=== PATIENT | female | born 1930 | race Caucasian/White ===

== ENCOUNTER 2016-10-14 21:39 | Inpatient (IN) | payer MEDICARE, BC ==
[2016-10-14 23:27] LABS: Glucose,Whole Blood 188 mg/dL (75-99)
[2016-10-15] MEDS: ACETAMINOPHEN TAB 325 MG TAB PO PRN ×2 (00:34→23:27)
[2016-10-15] MEDS: SODIUM CHLORIDE 0.9% 1,000 ML IV SCH ×2 (01:00→20:48)
[2016-10-15 05:54] LABS: Glucose,Whole Blood 151 mg/dL (75-99)
[2016-10-15] MEDS: INSULIN LISPRO (humaLOG) 300 UNIT/3 ML VIAL SQ SCH ×4 (06:26→20:54)
[2016-10-15 06:28] LABS: Basophils % (A) 0 %; CH 34.3; CHCM 32.8; Eosinophils % (A) 0 %; HCT 35.7 % (34.0-46.0); HGB 11.5 gm/dL (11.4-16.0); Luc # (Auto) 0.12; Luc % (Auto) 1; Lymphocytes # (A) 1.2 k/uL (1.0-4.8); Lymphocytes % (A) 11 %; MCH 33.7 pg (25.0-35.0); MCHC 32.1 g/dL (31.0-37.0); MCV 105.1 fL (80.0-100.0); Macrocytosis Slight; Mean Platelet Volume 7.2; Monocytes # (A) 0.4 k/uL (0-1.0); Monocytes % (A) 3 %; Neutrophils # (A) 9.8 k/uL (1.3-7.7); Neutrophils % (A) 85 %; RDW 11.7 % (11.5-15.5); WBC 11.5 k/uL (3.8-10.6)
[2016-10-15 06:37] LABS: Calcium 8.5 mg/dL (8.4-10.2); Potassium 4.4 mmol/L (3.5-5.1)
--- NOTE | 2016-10-15 09:23 | NM ---
EXAMINATION TYPE: NM pul vent and perfuse DATE OF EXAM: 10/15/2016 9:14 AM COMPARISON: No chest x-ray is submitted HISTORY: Elevated d-dimer TECHNIQUE: Utilizing inhalation of 70.8 mCi Tc 99m DTPA aerosol and intravenous injection of 5.3 mCi of Tc 99m MAA, ventilation and perfusion images are acquired post injection in multiple projections. FINDINGS: Decreased radiopharmaceutical uptake throughout the left hemithorax on both ventilation and perfusion images. Prominent lung volumes suggests possible underlying COPD. No ventilation/perfusion mismatche s are evident. IMPRESSION: Indeterminate probability for pulmonary embolism
--- NOTE | 2016-10-15 09:51 | XR ---
EXAMINATION TYPE: XR chest 2V DATE OF EXAM: 10/15/2016 9:33 AM COMPARISON: NONE HISTORY: Elevated d-dimer TECHNIQUE: Frontal and lateral views of the chest are obtained. FINDINGS: There is airspace disease present in the superior segment of the left lower lobe. Coronary calcifications are present. Prominent lung volumes compatible with underlying emphysema. Heart size may be borderline, patient is rotated which may accentuate the appearance. Surgical clips present in the left axilla. IMPRESSION: Correlate for pneumonia, follow-up is recommended. Coronary artery disease, emphysema.
[2016-10-15 12:06] LABS: Glucose,Whole Blood 127 mg/dL (75-99)
[2016-10-15 17:13] LABS: Glucose,Whole Blood 80 mg/dL (75-99)
[2016-10-15] MEDS ORDERED: HEPARIN SODIUM,PORCINE 10,000 UNIT/ML 1 ML VIAL IV ONE (19:04)
[2016-10-15] MEDS ORDERED: HEPARIN SODIUM,PORCINE 5,000 UNIT/ML 1 ML VIAL IV PRN (19:04)
--- NOTE | 2016-10-15 20:12 | US ---
EXAMINATION TYPE: US venous doppler duplex LE DATE OF EXAM: 10/15/2016 7:41 PM COMPARISON: NONE CLINICAL HISTORY: elevated d-dimer. pain in legs SIDE PERFORMED: Bilateral VESSELS IMAGED: External Iliac Vein (EIV) Common Femoral Vein Deep Femoral Vein Greater Saphenous Vein * Femoral Vein Popliteal Vein Proximal Calf Veins (* superficial vessels) TECHNOLOGIST IMPRESSION: wnl Right Leg: Negative for DVT Left Leg: Negative for DVT Satisfactory color flow, phasicity, and compressibility is seen in the bilateral lower extremities at the above levels. IMPRESSION: No ultrasound evidence for acute DVT in either lower extremity.
[2016-10-15] MEDS ORDERED: TEMAZEPAM 15 MG CAP PO PRN (20:22)
[2016-10-15] MEDS: AZITHROMYCIN 500 MG in SODIUM CHLORIDE 0.9% 250 ML IVPB SCH (20:48)
[2016-10-15] MEDS: LISINOPRIL 2.5 MG TAB PO SCH (20:51)
[2016-10-15] MEDS: MAGNESIUM OXIDE 400 MG TAB PO SCH (20:51)
[2016-10-15] MEDS: PRIMIDONE 50 MG TAB PO SCH (20:51)
[2016-10-15] MEDS: NICOTINE 14MG/24HR PATCH TRANSDERM SCH (20:51)
[2016-10-15] MEDS: ESCITALOPRAM 20 MG TAB PO SCH (20:51)
[2016-10-15] MEDS: ATORVASTATIN 20 MG TAB PO SCH (20:51)
[2016-10-15] MEDS: DONEPEZIL 10 MG TAB PO SCH (20:51)
[2016-10-15 20:55] LABS: Glucose,Whole Blood 125 mg/dL (75-99)
[2016-10-15 20:58] LABS: Basophils % (A) 0 %; CH 34.2; CHCM 32.3; Eosinophils # (A) 0.1 k/uL (0-0.7); Eosinophils % (A) 1 %; HCT 40.5 % (34.0-46.0); HDW 2.23; HGB 13.2 gm/dL (11.4-16.0); Luc # (Auto) 0.12; Luc % (Auto) 1; Lymphocytes # (A) 1.4 k/uL (1.0-4.8); Lymphocytes % (A) 12 %; MCH 34.6 pg (25.0-35.0); MCHC 32.5 g/dL (31.0-37.0); MCV 106.5 fL (80.0-100.0); Macrocytosis Slight; Monocytes # (A) 0.3 k/uL (0-1.0); Monocytes % (A) 3 %; Neutrophils # (A) 10.4 k/uL (1.3-7.7); Neutrophils % (A) 84 %; RBC 3.81 m/uL (3.80-5.40); RDW 11.8 % (11.5-15.5); WBC 12.4 k/uL (3.8-10.6); WBC (Perox) 12.75
[2016-10-15 22:19] LABS: Partial Thromboplastin Time 26.1 sec (22.0-30.0)
[2016-10-15 22:22] LABS: Prothrombin Time 10.5 sec (9.0-12.0)
[2016-10-15] MEDS: HEPARIN SODIUM,PORCINE/D5W PMX 25,000 UNIT in DEXTROSE/WATER 1 500ML.BAG IV SCH (22:44)
[2016-10-15 23:00] LABS: Appearance,Urine Clear (Clear); Bilirubin,Urine Negative (Negative); Glucose,Urine (UA) Negative (Negative); Ketones,Urine 1+ (Negative); Leukocyte Esterase,Urine Negative (Negative); Nitrite,Urine Negative (Negative); Protein,Urine Negative (Negative); Specific Gravity,Urine 1.009 (1.001-1.035); UA Billing (MACRO vs. MICRO) CHEM; Urobilinogen,Urine <2.0 mg/dL (<2.0)
[2016-10-15] MEDS: ALPRAZolam 0.25 MG TAB PO PRN (23:27)
[2016-10-16 05:53] LABS: Glucose,Whole Blood 155 mg/dL (75-99)
[2016-10-16 06:35] LABS: Basophils % (A) 0 %; CH 33.9; CHCM 31.6; Eosinophils % (A) 0 %; HCT 37.1 % (34.0-46.0); HDW 2.25; HGB 11.8 gm/dL (11.4-16.0); Luc # (Auto) 0.13; Luc % (Auto) 1; Lymphocytes % (A) 9 %; MCH 34.4 pg (25.0-35.0); MCHC 31.9 g/dL (31.0-37.0); MCV 107.6 fL (80.0-100.0); Macrocytosis Moderate; Mean Platelet Volume 7.1; Monocytes # (A) 0.3 k/uL (0-1.0); Monocytes % (A) 2 %; Neutrophils # (A) 9.6 k/uL (1.3-7.7); Neutrophils % (A) 87 %; RBC 3.45 m/uL (3.80-5.40); RDW 11.7 % (11.5-15.5); WBC (Perox) 11.46
[2016-10-16] MEDS: PANTOPRAZOLE 40 MG TABLET PO SCH (06:37)
[2016-10-16] MEDS: INSULIN LISPRO (humaLOG) 300 UNIT/3 ML VIAL SQ SCH ×3 (06:37→17:55)
[2016-10-16 07:30] LABS: Anion Gap 12 mmol/L; Blood Urea Nitrogen 15 mg/dL (7-17); Calcium 8.4 mg/dL (8.4-10.2); Carbon Dioxide 19 mmol/L (22-30); Chloride 110 mmol/L (98-107); Cholesterol 140 mg/dL (<200); Glucose 158 mg/dL (74-99); HDL Cholesterol 38 mg/dL (40-60); Magnesium 2.1 mg/dL (1.6-2.3); Non-African American GFR(MDRD) >60 (>60 ml/min/1.73 sqM); Potassium 4.1 mmol/L (3.5-5.1); Sodium 141 mmol/L (137-145); Triglycerides 125 mg/dL (<150)
[2016-10-16] MEDS: LEVALBUTEROL NEB (CONC) 1.25 MG/0.5 ML AMP INHALATION SCH ×3 (08:47→19:02)
[2016-10-16] MEDS: IPRATROPIUM 0.5 MG/2.5 ML NEBU INHALATION SCH ×3 (08:48→19:02)
[2016-10-16 08:51] LABS: Hemoglobin A1C 6.6 % (4.2-6.1)
[2016-10-16] MEDS ORDERED: RX INFO: IV CONTRAST WAS GIVEN 1 EACH MISC MISCELLANE PRN (10:15)
--- NOTE | 2016-10-16 11:30 | CT ---
EXAMINATION TYPE: CT chest angio for PE DATE OF EXAM: 10/16/2016 11:10 AM COMPARISON: NONE HISTORY: SOB, PE CT DLP: 177 mGycm Automated exposure control for dose reduction was used. CONTRAST: CT Chest for pulmonary embolism performed with with IV Contrast, patient injected with 100 mL of Omni paque 350. FINDINGS: LUNGS: Large area of consolidation in the left upper lobe most likely in the basis of a pneumonia. Fo llow resolution to exclude underlying neoplasm. Hyperinflation is suggestive of COPD and there are pa raseptal emphysematous changes. Central bronchiectasis suggested. No pleural effusion or pneumothorax . Basilar consolidation likely in the basis of compressive atelectasis. MEDIASTINUM: There is satisfactory enhancement of the pulmonary artery and its branches, there is no CT evidence for pulmonary embolism. There are no greater than 1 cm hilar or mediastinal lymph nodes. No pericardial effusion is seen. Atherosclerotic change of the aorta with no evidence of aneurysm . OTHER: Thyroid gland appears markedly enlarged. Correlate for thyroid goiter. Kyphosis of the spine with hypertrophic and degenerative changes noted. IMPRESSION: 1. Correlate for left upper lobe pneumonia. Follow resolution to exclude other etiologies including n eoplasm. 2. No CT evidence of pulmonary embolism. 3. 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 4. Thyroidomegaly.
[2016-10-16 11:59] LABS: Glucose,Whole Blood 63 mg/dL (75-99)
[2016-10-16 12:22] LABS: Glucose,Whole Blood 80 mg/dL (75-99)
[2016-10-16] MEDS: MULTIVITAMINS, THERA 1 EACH TAB PO SCH (12:29)
[2016-10-16] MEDS: ESCITALOPRAM 20 MG TAB PO SCH (12:29)
[2016-10-16] MEDS: NICOTINE 14MG/24HR PATCH TRANSDERM SCH (12:29)
[2016-10-16] MEDS: amLODIPine 5 MG TAB PO SCH (12:29)
[2016-10-16] MEDS: LISINOPRIL 2.5 MG TAB PO SCH (12:29)
[2016-10-16] MEDS: ASPIRIN 81 MG CHEW PO SCH (12:29)
[2016-10-16] MEDS: MAGNESIUM OXIDE 400 MG TAB PO SCH ×2 (12:29→23:12)
[2016-10-16] MEDS: ATENOLOL 25 MG TAB PO SCH (12:29)
[2016-10-16 12:54] LABS: Glucose,Whole Blood 120 mg/dL (75-99)
[2016-10-16 14:55] VITALS: BMI 20.7
--- NOTE | 2016-10-16 15:04 | P.CNPUL ---
History of Present Illness Consult date: 10/16/16 Requesting physician: Bita Alexander Reason for consult: pulmonary embolism Chief complaint: Shortness of breath and cough History of present illness: This is an 86-year-old female who is a poor historian, patient was admitted with mostly symptoms of cough and shortness of breath. However according to the patient she has no idea why she was sent to the hospital, since admission the patient had a VQ scan which showed intermediate probability for pulmonary embolism. She had a chest x-ray which showed possible pneumonia involving the left midlung area she had a venous Doppler which came back negative for DVT, however considering her intermediate VQ scan, patient was placed on heparin, and I was asked to see her on consultation. I reviewed the patient's chest x- ray, and upon my physical examination, I felt were mostly dealing with pneumonia , strongly doubt pulmonary embolism, and considering her renal functioning was relatively normal, I went ahead and recommended a CT angiogram which came back negative for pulmonary embolism and it is correlating with the chest x-ray findings of possible pneumonia involving the left midlung area. Hence I will go ahead and discontinue heparin, and I will place more emphasis on antibiotics and bronchodilators on this patient. Of course the possibility of malignancy in the left lung is not entirely ruled out, but felt to be less likely at this point. However in the abnormality does not clear with time, bronchoscopy would have to be considered to rule out underlying malignancy. Again the patient is a very poor historian. Review of Systems ROS unobtainable: due to mental status Past Medical History Past Medical History: Cancer, Diabetes Mellitus, Hyperlipidemia, Hypertension, Myocardial Infarction (ND), Pneumonia, Renal Disease, Thyroid Disorder Additional Past Medical History / Comment(s): breast CA, benign tumors, femur fx (2011) Last Myocardial Infarction Date:: 2011 History of Any Multi-Drug Resistant Organisms: None Reported Past Surgical History: Breast Surgery, Heart Catheterization With Stent Additional Past Surgical History / Comment(s): stents 2011 Past Anesthesia/Blood Transfusion Reactions: No Reported Reaction Date of Last Stent Placement:: 2011 Smoking Status: Current some day smoker Past Alcohol Use History: None Reported Additional Past Alcohol Use History / Comment(s): smokes 2-3 ciagrettes a day, quit for 4 years but restarted a few weeks ago. Past Drug Use History: None Reported - Past Family History Mother Family Medical History: Diabetes Mellitus Additional Family Medical History / Comment(s): varicose veins, at 57 Sister(s) Family Medical History: Diabetes Mellitus Brother(s) Family Medical History: Myocardial Infarction (ND) Father Additional Family Medical History / Comment(s): back problems Medications and Allergies Home Medications Medication Instructions Recorded Confirmed Type ALPRAZolam [Xanax] 0.25 mg PO BID PRN 10/15/16 10/15/16 History Acetaminophen Tab [Tylenol Tab] 650 mg PO Q6H 10/15/16 10/15/16 History Albuterol Sulfate [Proair 90 mcg INHALATION QID 10/15/16 10/15/16 History Respiclick] Aspirin [Adult Low Dose Aspirin EC] 81 mg PO DAILY 10/15/16 10/15/16 History Atenolol [Tenormin] 25 mg PO DAILY 10/15/16 10/15/16 History Donepezil [Aricept] 10 mg PO HS 10/15/16 10/15/16 History Escitalopram [Lexapro] 20 mg PO DAILY 10/15/16 10/15/16 History Lisinopril [Zestril] 2.5 mg PO DAILY 10/15/16 10/15/16 History Magnesium Oxide [Mag-Ox] 250 mg PO BID 10/15/16 10/15/16 History Primidone [Mysoline] 50 mg PO HS 10/15/16 10/15/16 History Simvastatin [Zocor] 40 mg PO HS 10/15/16 10/15/16 History amLODIPine [Norvasc] 5 mg PO DAILY 10/15/16 10/15/16 History glipiZIDE [Glucotrol] 2.5 mg PO AC-BRKFST 10/15/16 10/15/16 History Allergies Allergy/AdvReac Type Severity Reaction Status Date / Time codeine Allergy Itching Verified 10/15/16 10:53 Physical Exam Vitals: Vital Signs Temp Pulse Pulse Resp BP Pulse Ox 10/16/16 13:20 84 10/16/16 13:07 80 10/16/16 11:41 97.3 F L 95 20 121/63 90 L 10/16/16 09:03 84 10/16/16 08:48 84 10/16/16 08:00 97.8 F 97 20 127/66 93 L 10/16/16 04:00 98.5 F 92 18 141/74 96 10/16/16 00:00 97.6 F 100 18 136/72 95 10/15/16 20:04 97.4 F L 109 H 18 147/76 96 10/15/16 16:00 97.8 F 97 20 127/58 98 Intake and Output 10/15/16 10/16/16 10/16/16 22:59 06:59 14:59 Intake Total 240 600 860.4 Output Total 450 Balance 240 150 860.4 Intake: Intake, IV Titration 860.4 Amount Heparin Sodium,Porcine/ 260.4 D5w Pmx 25,000 unit In Dextrose/Water 1 500ml. bag @ 18 UNITS/KG/HR 21.7 mls/hr IV .Q23H3M [facility] Rx #:[id number] Sodium Chloride 0.9% 1, 600 000 ml @ 50 mls/hr IV . Q20H [facility] Rx#:[id number] Oral 240 600 Output: Urine 450 Other: # Voids 1 2 Weight 60.1 kg 60.1 kg Patient Weight 10/17/16 06:59 Weight 60.1 kg Physical Exam: Revealed an 86-year-old female in no distress HEENT:[Neck is supple.] [No neck masses.] [No thyromegaly.] [No JVD.] Chest: [Rhonchi and wheezes noted bilaterally.] Cardiac Exam: [Normal S1 and S2, no S3 gallop, no murmur.] Abdomen: [Soft, nontender, no megaly, no rebound, no guarding, normal bowel sounds.] Extremities: [No clubbing, no edema, no cyanosis.] Neurological Exam: [No focal neurologic deficit.] Results - Laboratory Findings CBC and BMP: 10/16/16 06:03 10/16/16 06:03 PT/INR, D-dimer PT 10.5 sec (9.0-12.0) 10/15/16 22:00 INR 1.0 (<1.1) 10/15/16 22:00 Abnormal lab findings: Abnormal Labs 10/14/16 10/15/16 10/15/16 23:25 05:49 05:49 WBC 11.5 H RBC 3.40 L MCV 105.1 H Neutrophils # 9.8 H APTT Chloride Carbon Dioxide BUN Creatinine Glucose POC Glucose (mg/dL) 188 H Hemoglobin A1c 6.6 H HDL Cholesterol Urine Ketones 10/15/16 10/15/16 10/15/16 05:49 05:53 12:01 WBC RBC MCV Neutrophils # APTT Chloride 108 H Carbon Dioxide BUN 25 H Creatinine 1.11 H Glucose 146 H POC Glucose (mg/dL) 151 H 127 H Hemoglobin A1c HDL Cholesterol Urine Ketones 10/15/16 10/15/16 10/15/16 20:20 20:53 22:00 WBC 12.4 H RBC MCV 106.5 H Neutrophils # 10.4 H APTT Chloride Carbon Dioxide BUN Creatinine Glucose POC Glucose (mg/dL) 125 H Hemoglobin A1c HDL Cholesterol Urine Ketones 1+ H 10/16/16 10/16/16 10/16/16 05:51 06:03 06:03 WBC 11.0 H RBC 3.45 L MCV 107.6 H Neutrophils # 9.6 H APTT Chloride 110 H Carbon Dioxide 19 L BUN Creatinine Glucose 158 H POC Glucose (mg/dL) 155 H Hemoglobin A1c HDL Cholesterol 38 L Urine Ketones 10/16/16 10/16/16 10/16/16 06:03 11:53 12:47 WBC RBC MCV Neutrophils # APTT 70.4 H Chloride Carbon Dioxide BUN Creatinine Glucose POC Glucose (mg/dL) 63 L 120 H Hemoglobin A1c HDL Cholesterol Urine Ketones - Diagnostic Findings CT scan - chest: image reviewed (The computed tomography scan is negative for pulmonary embolism, but points to possible infection in the left lung.) Assessment and Plan Plan: Impression: 1 acute left midlung pneumonia, community-acquired, doubt malignancy but it is not entirely ruled out. 2 history of multiple comorbidities including essential hypertension, dementia, diabetes, and depression. Recommendation: Continue antibiotics in the form of Rocephin and Zithromax, discontinue IV heparin, continue bronchodilators, and we will continue to follow. Time with Patient: Greater than 30
[2016-10-16 16:48] LABS: Glucose,Whole Blood 90 mg/dL (75-99)
--- NOTE | 2016-10-16 17:51 | HP ---
DATE OF ADMISSION: 10/14/2016 CHIEF COMPLAINT: Shortness of breath and cough. HISTORY OF PRESENT ILLNESS: This 86 -year-old woman with a past medical history of multiple medical problems, including diabetes, hypertension, hyperlipidemia, history of myocardial infarction, history of hypothyroidism, history of breast cancer, history of benign tumor, history of coronary artery disease and stent being followed by primary physician in [facility], was noted to have shortness of breath and cough for the past several days. Patient went to [facility]. Pneumonia is suspected, but D. dimer was elevated and the patient sent to [facility] and admitted to the hospital for further evaluation and treatment. VQ scan showed intermediate probability. There is no history of any fever, rigors or chills at this time. White count is 11.5, creatinine 1.11. Ultrasound of the leg which ordered showed no evidence of DVT. The patient started on IV heparin empirically at this time. There is no history of fever, rigors or chills. No history of headache, loss of consciousness or seizures. PAST MEDICAL HISTORY: History of diabetes mellitus type 2, hypertension hyperlipidemia, history of myocardial infarction, pneumonia, hypothyroidism, history of breast cancer, benign tumor, history of CAD/stent. Medications prior to admission include: 1. Glucotrol 2.5 mg a.c. breakfast. 2. Norvasc 5 mg p.o. daily. 3. Zocor 40 mg q.h.s. 4. Mysoline 50 mg q.h.s. 6. Zestril 2.5 mg daily. 7. Lexapro 20 mg p.o. daily. 8. Aricept 10 mg q.h.s. 9. Tenormin 20 mg p.o. daily. 10. Ecotrin 81 mg daily. 11. Pro-Air 90 mcg q.i.d. 12. Tylenol 650 q.6h p.r.n. 13. Xanax 0.5 p.r.n. ALLERGIES: CODEINE. FAMILY HISTORY: History of diabetes mellitus and varicose veins in the family. SOCIAL HISTORY: No history of alcohol intake. Current smoking present. REVIEW OF SYSTEMS: ENT: Diminished vision. Diminished hearing. CARDIOVASCULAR: As mentioned earlier. RESPIRATORY: As mentioned earlier. GI: No nausea or vomiting. : No dysuria. Nervous system: No numbness or weakness. ALLERGY/IMMUNOLOGY: No asthma or hayfever. MUSCULOSKELETAL: As mentioned earlier. HEMATOLOGY/ONCOLOGY: No history of anemia. ENDOCRINE: No history of diabetes, hypothyroidism. CONSTITUTIONAL: As mentioned earlier. DERMATOLOGY: As mentioned earlier. RHEUMATOLOGY: Negative. PSYCHIATRY: As mentioned earlier. PHYSICAL EXAMINATION: The patient is alert and oriented times three. Pulse 109. Blood pressure 147/77. Respiratory rate 18, temperature 97.4, pulse ox 97% on 2 L. HEENT: Conjunctivae normal. Oral mucosa moist. NECK: No jugular venous distention. No carotid bruit. No lymph node enlargement. CARDIOVASCULAR: S1, S2 muffled. No S3, no S4. RESPIRATORY: Breath sounds diminished at the bases. Bilateral scattered rhonchi and crackles. Expiratory wheezing also present. ABDOMEN: Soft, nontender. No mass palpable. Legs: No edema, no swelling. Nervous system: Higher functions as mentioned. Moves all four limbs. No focal deficits. LYMPHATICS: No lymph nodes palpable in the neck, axillae or groin. SKIN: No ulcer, rash or bleeding. LABS: At this time shows: WBC 11.5, MCV 105, otherwise creatinine 1.10, Accu-Cheks noted. ASSESSMENT: 1. Chronic obstructive pulmonary disease, acute exacerbation, with left lower lobe pneumonia, possibly community acquired. 2. Rule out pulmonary embolism. 3. Diabetes mellitus type 2. 4. Hypertension, essential. 5. Hyperlipidemia. 6. History of myocardial infarction. 7. History of pneumonia. 8. History of chronic kidney disease stage III. 9. Hypothyroidism. 10. History of breast cancer. 11. History of femoral fractures. 12. History of breast surgery. 13. History of coronary artery disease and stent. 14. Continued ongoing nicotine dependence. 15. FULL CODE with instructions and DO NOT INTUBATE. RECOMMENDATIONS AND DISCUSSION: In this 86-year-old woman who presented with multiple complex medical issues, we will monitor the patient closely. Continue the current medications and continue symptomatic treatment. We will initiate broad-spectrum IV antibiotics and bronchodilators. I would also recommend pulmonary consultation. Other than that, I would obtain cultures. Resume the home medications. IV heparin. Monitor heparin. PTT monitoring. Guarded prognosis because of multiple complex medical issues. Further recommendations to follow. I would recommend the patient follow up closely with the primary physician after discharge. DEVIN
--- NOTE | 2016-10-16 18:02 | P.PN ---
Subjective Date of service 10/16/2016 Progress note being dictated for Dr. Lee Interval history: This is an 86-year-old gentleman admitted with shortness of breath, acute left midlung pneumonia, VQ scan reporting intermediate probability of PE, CTA reported negative for PE and multiple other medical issues. Heparin drip now discontinued as per pulmonary. Maintained on nebulized bronchodilators, antibiotics of Rocephin and Zithromax. Maintaining O2 sats of 96% on 2 L nasal cannula. Afebrile. Review of systems: HEENT: Denies headache or focal deficits. Denies any dizziness or lightheadedness. Respiratory: Complains of increased shortness of breath, much improved with addition of nasal cannula O2. Cardiac: Denies any chest pain, palpitations. GI: Denies any nausea, vomiting, or diarrhea. Denies any abdominal tenderness. : Denies any dysuria. Psychiatry: Denies any anxiety or depression. Active Medications Acetaminophen (Tylenol Tab) 650 mg PO Q6HR PRN PRN Reason: Fever and/ or Pain Last Admin: 10/15/16 23:27 Dose: 650 mg Albuterol/Ipratropium (Duoneb 0.5 Mg-3 Mg/3 Ml Soln) 3 ml INHALATION RT-QID [facility] Alprazolam (Xanax) 0.25 mg PO BID PRN PRN Reason: Anxiety Last Admin: 10/15/16 23:27 Dose: 0.25 mg Amlodipine Besylate (Norvasc) 5 mg PO DAILY [facility] Last Admin: 10/16/16 12:29 Dose: 5 mg Aspirin (Aspirin) 81 mg PO DAILY [facility] Last Admin: 10/16/16 12:29 Dose: 81 mg Atenolol (Tenormin) 25 mg PO DAILY [facility] Last Admin: 10/16/16 12:29 Dose: 25 mg Atorvastatin Calcium (Lipitor) 20 mg PO HS [facility] Last Admin: 10/15/16 20:51 Dose: 20 mg Donepezil HCl (Aricept) 10 mg PO HS [facility] Last Admin: 10/15/16 20:51 Dose: 10 mg Escitalopram Oxalate (Lexapro) 20 mg PO DAILY [facility] Last Admin: 10/16/16 12:29 Dose: 20 mg Glipizide (Glucotrol) 2.5 mg PO [facility] Last Admin: 10/16/16 06:37 Dose: 2.5 mg Sodium Chloride (Saline 0.9%) 1,000 mls @ 50 mls/hr IV .Q20H [facility] Last Admin: 10/15/16 20:48 Dose: 50 mls/hr Heparin Sodium/Dextrose 25,000 (unit/ IV Solution) 500 mls @ 21.7 mls/hr IV .Q23H3M [facility]; 18 UNITS/KG/HR PRN Reason: Protocol Last Admin: 10/15/16 22:44 Dose: 18 units/kg/hr, 21.7 mls/hr Azithromycin 500 mg/ Sodium (Chloride) 250 mls @ 125 mls/hr IVPB Q24H [facility] Last Admin: 10/15/16 20:48 Dose: 125 mls/hr Ceftriaxone Sodium 1,000 mg/ (Sodium Chloride) 50 mls @ 100 mls/hr IVPB Q24H [facility] Last Admin: 10/15/16 23:29 Dose: 100 mls/hr Insulin Human Lispro (Humalog) 0 unit SQ ACHS [facility] PRN Reason: Protocol Last Admin: 10/16/16 17:55 Dose: Not Given Ipratropium Hamlin (Atrovent Nebulized) 0.5 mg INHALATION RT-TID [facility] Stop: 10/17/16 07:00 Last Admin: 10/16/16 13:07 Dose: 0.5 mg Levalbuterol HCl (Xopenex Nebulized (Conc)) 1.25 mg INHALATION RT-TID [facility] Stop: 10/17/16 07:00 Last Admin: 10/16/16 13:07 Dose: 1.25 mg Lisinopril (Zestril) 2.5 mg PO DAILY [facility] Last Admin: 10/16/16 12:29 Dose: 2.5 mg Magnesium Oxide (Mag-Ox) 400 mg PO BID [facility] Last Admin: 10/16/16 12:29 Dose: 400 mg Miscellaneous Information (Rx Info: Iv Contrast Was Given) 1 each MISCELLANE DAILY PRN PRN Reason: Per Protocol Stop: 10/18/16 10:16 Multivitamins (Theragran) 1 each PO DAILY@1200 [facility] Last Admin: 10/16/16 12:29 Dose: 1 each Nicotine (Habitrol 14mg/24hr Patch) 1 patch TRANSDERM DAILY [facility] Last Admin: 10/16/16 12:29 Dose: Not Given Pantoprazole Sodium (Protonix) 40 mg PO AC-BRKFST [facility] Last Admin: 10/16/16 06:37 Dose: 40 mg Primidone (Mysoline) 50 mg PO HS [facility] Last Admin: 10/15/16 20:51 Dose: 50 mg Temazepam (Restoril) 15 mg PO HS PRN PRN Reason: Insomnia Objective - Vital Signs Vital signs: Vital Signs Temp 97.3 F L 10/16/16 15:52 Pulse 74 10/16/16 15:52 Resp 20 10/16/16 15:52 BP 105/51 10/16/16 15:52 Pulse Ox 96 10/16/16 15:52 Intake & Output 10/15/16 10/16/16 10/16/16 18:59 06:59 18:59 Intake Total 360 600 860.4 Output Total 400 450 Balance -40 150 860.4 Weight 60.1 kg 60.1 kg Intake: Intake, IV Titration 860.4 Amount Heparin Sodium,Porcine/ 260.4 D5w Pmx 25,000 unit In Dextrose/Water 1 500ml. bag @ 18 UNITS/KG/HR 21.7 mls/hr IV .Q23H3M [facility] Rx #:[id number] Sodium Chloride 0.9% 1, 600 000 ml @ 50 mls/hr IV . Q20H [facility] Rx#:[id number] Oral 360 600 Output: Urine 400 450 Other: # Voids 1 2 - Exam PHYSICAL EXAM: VITAL SIGNS: As above GENERAL: [Sitting up in bed, no acute distress] HEENT: [Pupils equal conjunctiva normal.] NECK: [Supple, no JVD] RESPIRATORY EFFORT:[Increased] LUNGS: [Scattered rhonchi throughout with expiratory wheezing] CARDIOVASCULAR[regular S1 and S2, no murmurs ,rubs or gallops, no edema] GI: [Abdomen soft, nontender, positive bowel sounds.] PSYCH: [Alert and oriented -3, mood and affect normal.] NEURO: [] Neurological examination did not reveal any focal deficits.] Microbiology 10/15/16 22:00 Urine,Voided Urine Culture - Preliminary - Labs CBC & Chem 7: 10/16/16 06:03 10/16/16 06:03 Labs: Abnormal Lab Results - Last 24 Hours (Table) 10/15/16 10/15/16 10/15/16 Range/Units 05:49 20:20 20:53 WBC 12.4 H (3.8-10.6) k/uL RBC (3.80-5.40) m/uL MCV 106.5 H (80.0-100.0) fL Neutrophils # 10.4 H (1.3-7.7) k/uL APTT (22.0-30.0) sec Chloride (98-107) mmol/L Carbon Dioxide (22-30) mmol/L Glucose (74-99) mg/dL POC Glucose (mg/dL) 125 H (75-99) mg/dL Hemoglobin A1c 6.6 H (4.2-6.1) % HDL Cholesterol (40-60) mg/dL Urine Ketones (Negative) 10/15/16 10/16/16 10/16/16 Range/Units 22:00 05:51 06:03 WBC 11.0 H (3.8-10.6) k/uL RBC 3.45 L (3.80-5.40) m/uL MCV 107.6 H (80.0-100.0) fL Neutrophils # 9.6 H (1.3-7.7) k/uL APTT (22.0-30.0) sec Chloride (98-107) mmol/L Carbon Dioxide (22-30) mmol/L Glucose (74-99) mg/dL POC Glucose (mg/dL) 155 H (75-99) mg/dL Hemoglobin A1c (4.2-6.1) % HDL Cholesterol (40-60) mg/dL Urine Ketones 1+ H (Negative) 10/16/16 10/16/16 10/16/16 Range/Units 06:03 06:03 11:53 WBC (3.8-10.6) k/uL RBC (3.80-5.40) m/uL MCV (80.0-100.0) fL Neutrophils # (1.3-7.7) k/uL APTT 70.4 H (22.0-30.0) sec Chloride 110 H (98-107) mmol/L Carbon Dioxide 19 L (22-30) mmol/L Glucose 158 H (74-99) mg/dL POC Glucose (mg/dL) 63 L (75-99) mg/dL Hemoglobin A1c (4.2-6.1) % HDL Cholesterol 38 L (40-60) mg/dL Urine Ketones (Negative) 10/16/16 Range/Units 12:47 WBC (3.8-10.6) k/uL RBC (3.80-5.40) m/uL MCV (80.0-100.0) fL Neutrophils # (1.3-7.7) k/uL APTT (22.0-30.0) sec Chloride (98-107) mmol/L Carbon Dioxide (22-30) mmol/L Glucose (74-99) mg/dL POC Glucose (mg/dL) 120 H (75-99) mg/dL Hemoglobin A1c (4.2-6.1) % HDL Cholesterol (40-60) mg/dL Urine Ketones (Negative) Microbiology - Last 24 Hours (Table) 10/15/16 22:00 Urine Culture - Preliminary Urine,Voided Assessment and Plan Plan: 1. Shortness of breath, pulmonary embolism ruled out out. Acute left mid lung pneumonia, community-acquired, possibly malignancy. 2. [Diabetes mellitus]. 3. [Hypertension]. 4. [Dementia]. 5. [Depression]. 6. [Acute hypoxic respiratory failure secondary to #1]. 7. [Hyperlipidemia] 9. CAD with history of CT 10. Current ongoing nicotine abuse 11. Leukocytosis secondary #1 Plan: Continue on current medication regime, nebulized bronchodilators, Rocephin , Zithromax, monitoring, and symptomatic treatment. Urine culture pending. Follow closely with pulmonary. Further recommendations to follow. Prognosis guarded given multiple complex medical issues. The impression and plan of care has been dictated as directed. : I performed a H&P examination of this patient and discussed the same with the dictator. I agree with the dictator's note. Any additional findings/opinions/ etc. will be noted.
[2016-10-16 21:32] LABS: Glucose,Whole Blood 125 mg/dL (75-99)
[2016-10-16] MEDS: ATORVASTATIN 20 MG TAB PO SCH (23:11)
[2016-10-16] MEDS: AZITHROMYCIN 500 MG in SODIUM CHLORIDE 0.9% 250 ML IVPB SCH (23:11)
[2016-10-16] MEDS: DONEPEZIL 10 MG TAB PO SCH (23:12)
[2016-10-16] MEDS: PRIMIDONE 50 MG TAB PO SCH (23:12)
[2016-10-17] MEDS: HEPARIN SODIUM,PORCINE/D5W PMX 25,000 UNIT in DEXTROSE/WATER 1 500ML.BAG IV SCH (05:59)
[2016-10-17] MEDS: INSULIN LISPRO (humaLOG) 300 UNIT/3 ML VIAL SQ SCH ×5 (06:00→21:20)
[2016-10-17 06:16] LABS: Basophils % (A) 0 %; CH 33.6; CHCM 31.2; Eosinophils # (A) 0.1 k/uL (0-0.7); Eosinophils % (A) 2 %; HCT 35.7 % (34.0-46.0); HDW 2.27; HGB 11.3 gm/dL (11.4-16.0); Luc % (Auto) 1; Lymphocytes # (A) 0.9 k/uL (1.0-4.8); Lymphocytes % (A) 11 %; MCH 34.1 pg (25.0-35.0); MCHC 31.5 g/dL (31.0-37.0); Macrocytosis Moderate; Mean Platelet Volume 7.4; Monocytes # (A) 0.3 k/uL (0-1.0); Monocytes % (A) 3 %; Neutrophils # (A) 7.1 k/uL (1.3-7.7); Neutrophils % (A) 83 %; RBC 3.31 m/uL (3.80-5.40); RDW 11.6 % (11.5-15.5); WBC 8.5 k/uL (3.8-10.6); WBC (Perox) 8.97
[2016-10-17 06:20] LABS: Glucose,Whole Blood 147 mg/dL (75-99)
[2016-10-17] MEDS: SODIUM CHLORIDE 0.9% 1,000 ML IV SCH ×2 (06:21→12:08)
[2016-10-17 06:35] LABS: Anion Gap 10 mmol/L; Blood Urea Nitrogen 13 mg/dL (7-17); Calcium 8.3 mg/dL (8.4-10.2); Carbon Dioxide 19 mmol/L (22-30); Chloride 109 mmol/L (98-107); Glucose 142 mg/dL (74-99); Non-African American GFR(MDRD) >60 (>60 ml/min/1.73 sqM); Sodium 138 mmol/L (137-145)
[2016-10-17] MEDS: PANTOPRAZOLE 40 MG TABLET PO SCH (07:11)
[2016-10-17] MEDS: ASPIRIN 81 MG CHEW PO SCH (08:24)
[2016-10-17] MEDS: ATENOLOL 25 MG TAB PO SCH (08:24)
[2016-10-17] MEDS: amLODIPine 5 MG TAB PO SCH (08:24)
[2016-10-17] MEDS: MAGNESIUM OXIDE 400 MG TAB PO SCH ×2 (08:24→21:11)
[2016-10-17] MEDS: LISINOPRIL 2.5 MG TAB PO SCH (08:25)
[2016-10-17] MEDS: ESCITALOPRAM 20 MG TAB PO SCH (08:25)
[2016-10-17] MEDS: ALPRAZolam 0.25 MG TAB PO PRN (08:32)
[2016-10-17] MEDS: IPRATROPIUM-ALBUTEROL 3 ML NEB INHALATION SCH ×4 (08:59→20:35)
[2016-10-17] MEDS: NICOTINE 14MG/24HR PATCH TRANSDERM SCH (10:01)
--- NOTE | 2016-10-17 10:16 | PN ---
DATE OF SERVICE: 10/16/2016 This 86-year-old woman who was admitted with shortness of breath and acute left middle lung pneumonia, is being closely monitored at this time. The VQ scan indeterminate. Dr. Castro is following the patient closely. Dr. Castro is recommending treatment for community-acquired pneumonia. Please refer to the nurse practitioner's notes and impressions for further information which is documented as scribe at this time.
[2016-10-17 11:38] LABS: Glucose,Whole Blood 79 mg/dL (75-99)
[2016-10-17] MEDS: MULTIVITAMINS, THERA 1 EACH TAB PO SCH (12:06)
--- NOTE | 2016-10-17 13:03 | P.PN ---
Subjective Principal diagnosis: Acute community-acquired pneumonia This is an 86-year-old female who is a poor historian, patient was admitted with mostly symptoms of cough and shortness of breath. However according to the patient she has no idea why she was sent to the hospital, since admission the patient had a VQ scan which showed intermediate probability for pulmonary embolism. She had a chest x-ray which showed possible pneumonia involving the left midlung area she had a venous Doppler which came back negative for DVT, however considering her intermediate VQ scan, patient was placed on heparin, and I was asked to see her on consultation. I reviewed the patient's chest x- ray, and upon my physical examination, I felt were mostly dealing with pneumonia , strongly doubt pulmonary embolism, and considering her renal functioning was relatively normal, I went ahead and recommended a CT angiogram which came back negative for pulmonary embolism and it is correlating with the chest x-ray findings of possible pneumonia involving the left midlung area. Hence I will go ahead and discontinue heparin, and I will place more emphasis on antibiotics and bronchodilators on this patient. Of course the possibility of malignancy in the left lung is not entirely ruled out, but felt to be less likely at this point. However in the abnormality does not clear with time, bronchoscopy would have to be considered to rule out underlying malignancy. Again the patient is a very poor historian. Patient was seen today on 10/17/2016, feeling a bit better, less cough and less wheezing less shortness of breath. CBC is relatively unremarkable, electrolytes are normal and renal profile is normal. Objective - Vital Signs Vital signs: Vital Signs Temp 98.3 F 10/17/16 11:17 Pulse 66 10/17/16 11:47 Resp 16 10/17/16 11:47 BP 109/53 10/17/16 11:17 Pulse Ox 96 10/17/16 11:17 Intake & Output 10/16/16 10/17/16 10/17/16 18:59 06:59 18:59 Intake Total 860.4 800 Balance 860.4 800 Weight 60.1 kg 60.8 kg 60.8 kg Intake: Intake, IV Titration 860.4 500 Amount Heparin Sodium,Porcine/ 260.4 500 D5w Pmx 25,000 unit In Dextrose/Water 1 500ml. bag @ 18 UNITS/KG/HR 21.7 mls/hr IV .Q23H3M [facility] Rx #:[id number] Sodium Chloride 0.9% 1, 600 000 ml @ 50 mls/hr IV . Q20H [facility] Rx#:[id number] Oral 300 Other: Voiding Method Toilet Toilet # Voids 2 - Exam Physical Exam: Revealed an 86-year-old female in no distress HEENT:[Neck is supple.] [No neck masses.] [No thyromegaly.] [No JVD.] Chest: [Rhonchi and wheezes noted bilaterally.] Cardiac Exam: [Normal S1 and S2, no S3 gallop, no murmur.] Abdomen: [Soft, nontender, no megaly, no rebound, no guarding, normal bowel sounds.] Extremities: [No clubbing, no edema, no cyanosis.] Neurological Exam: [No focal neurologic deficit.] - Labs CBC & Chem 7: 10/17/16 05:52 10/17/16 05:52 Labs: Abnormal Lab Results - Last 24 Hours (Table) 10/16/16 10/17/16 10/17/16 Range/Units 21:30 05:52 05:52 RBC 3.31 L (3.80-5.40) m/uL Hgb 11.3 L (11.4-16.0) gm/dL MCV 108.0 H (80.0-100.0) fL Lymphocytes # 0.9 L (1.0-4.8) k/uL APTT (22.0-30.0) sec Chloride 109 H (98-107) mmol/L Carbon Dioxide 19 L (22-30) mmol/L Glucose 142 H (74-99) mg/dL POC Glucose (mg/dL) 125 H (75-99) mg/dL Calcium 8.3 L (8.4-10.2) mg/dL 10/17/16 10/17/16 Range/Units 05:52 06:17 RBC (3.80-5.40) m/uL Hgb (11.4-16.0) gm/dL MCV (80.0-100.0) fL Lymphocytes # (1.0-4.8) k/uL APTT 69.0 H (22.0-30.0) sec Chloride (98-107) mmol/L Carbon Dioxide (22-30) mmol/L Glucose (74-99) mg/dL POC Glucose (mg/dL) 147 H (75-99) mg/dL Calcium (8.4-10.2) mg/dL Microbiology - Last 24 Hours (Table) 10/15/16 20:48 Blood Culture - Preliminary Blood No Growth after 24 hours 10/15/16 22:00 Urine Culture - Preliminary Urine,Voided Assessment and Plan Plan: Impression: 1 acute left midlung pneumonia, community-acquired, doubt malignancy but it is not entirely ruled out. 2 history of multiple comorbidities including essential hypertension, dementia, diabetes, and depression. Recommendation: Continue antibiotics in the form of Rocephin and Zithromax, discontinue IV heparin, continue bronchodilators, and we will continue to follow. Time with Patient: Less than 30
[2016-10-17 16:34] LABS: Glucose,Whole Blood 92 mg/dL (75-99)
--- NOTE | 2016-10-17 17:23 | P.PN ---
Subjective Date of service 10/17/2016 Progress note being dictated for Dr. Lee Interval history: This is an 86-year-old gentleman admitted with shortness of breath, acute left midlung pneumonia and multiple other medical issues. Ambulating to and from bathroom, tolerating increase in exertion well. Maintaining O2 sats Maintained on nebulized bronchodilators, antibiotics of Rocephin and Zithromax. Maintaining O2 sats of 95% on 2 L nasal cannula. Afebrile. Review of systems: HEENT: Denies headache or focal deficits. Denies any dizziness or lightheadedness. Respiratory: Complains of mild increase in shortness of breath upon ambulation. Cardiac: Denies any chest pain, palpitations. GI: Denies any nausea, vomiting, or diarrhea. Denies any abdominal tenderness. : Denies any dysuria. Psychiatry: Denies any anxiety or depression. Active Medications Generic Name Dose Route Start Last Admin Trade Name Freq PRN Reason Stop Dose Admin Acetaminophen 650 mg 10/15/16 00:27 10/15/16 23:27 Tylenol Tab PO 650 mg Q6HR PRN Administration Fever and/ or Pain Albuterol/Ipratropium 3 ml 10/17/16 08:00 10/17/16 16:27 Duoneb 0.5 Mg-3 Mg/3 Ml Soln INHALATION 3 ml RT-QID LISA Administration Alprazolam 0.25 mg 10/15/16 20:23 10/17/16 08:32 Xanax PO 0.25 mg BID PRN Administration Anxiety Amlodipine Besylate 5 mg 10/16/16 09:00 10/17/16 08:24 Norvasc PO 5 mg DAILY LISA Administration Aspirin 81 mg 10/16/16 09:00 10/17/16 08:24 Aspirin PO 81 mg DAILY LISA Administration Atenolol 25 mg 10/16/16 09:00 10/17/16 08:24 Tenormin PO 25 mg DAILY LISA Administration Atorvastatin Calcium 20 mg 10/15/16 21:00 10/16/16 23:11 Lipitor PO 20 mg HS LISA Administration Donepezil HCl 10 mg 10/15/16 21:00 10/16/16 23:12 Aricept PO 10 mg HS LISA Administration Escitalopram Oxalate 20 mg 10/15/16 20:30 10/17/16 08:25 Lexapro PO 20 mg DAILY LISA Administration Glipizide 2.5 mg 10/16/16 07:30 10/17/16 07:10 Glucotrol PO 2.5 mg AC-BRKFST LISA Administration Sodium Chloride 1,000 mls @ 50 mls/hr 10/15/16 00:30 10/17/16 12:08 Saline 0.9% IV 50 mls/hr .Q20H LISA Administration Heparin Sodium/Dextrose 25,000 500 mls @ 21.7 mls/hr 10/15/16 19:15 10/17/16 05:59 unit/ IV Solution IV 18 units/kg/hr .Q23H3M LISA 21.7 mls/hr Protocol Administration 18 UNITS/KG/HR Azithromycin 500 mg/ Sodium 250 mls @ 125 mls/hr 10/15/16 21:00 10/16/16 23: 11 Chloride IVPB 125 mls/hr Q24H LISA Administration Ceftriaxone Sodium 1,000 mg/ 50 mls @ 100 mls/hr 10/15/16 22:00 10/17/16 06: 03 Sodium Chloride IVPB 100 mls/hr Q24H LISA Administration Insulin Human Lispro 0 unit 10/15/16 07:30 10/17/16 12:08 Humalog SQ Not Given ACHS [facility] Protocol Lisinopril 2.5 mg 10/15/16 20:30 10/17/16 08:25 Zestril PO 2.5 mg DAILY LISA Administration Magnesium Oxide 400 mg 10/15/16 21:00 10/17/16 08:24 Mag-Ox PO 400 mg BID LISA Administration Miscellaneous Information 1 each 10/16/16 10:15 Rx Info: Iv Contrast Was Given MISCELLANE 10/18/16 10:16 DAILY PRN Per Protocol Multivitamins 1 each 10/16/16 12:00 10/17/16 12:06 Theragran PO 1 each DAILY@1200 LISA Administration Nicotine 1 patch 10/15/16 20:30 10/17/16 10:01 Habitrol 14mg/24hr Patch TRANSDERM Not Given DAILY LISA Pantoprazole Sodium 40 mg 10/16/16 07:30 10/17/16 07:11 Protonix PO 40 mg AC-BRKFST LISA Administration Primidone 50 mg 10/15/16 21:00 03/20/17 23:12 Mysoline PO 50 mg HS LISA Administration Temazepam 15 mg 10/15/16 20:22 Restoril PO HS PRN Insomnia Objective - Vital Signs Vital signs: Vital Signs Temp 98.7 F 10/17/16 15:33 Pulse 76 10/17/16 16:39 Resp 16 10/17/16 15:53 BP 102/51 10/17/16 15:33 Pulse Ox 95 10/17/16 15:33 Intake & Output 10/16/16 10/17/16 10/17/16 18:59 06:59 18:59 Intake Total 860.4 800 Balance 860.4 800 Weight 60.1 kg 60.8 kg 60.8 kg Intake: Intake, IV Titration 860.4 500 Amount Heparin Sodium,Porcine/ 260.4 500 D5w Pmx 25,000 unit In Dextrose/Water 1 500ml. bag @ 18 UNITS/KG/HR 21.7 mls/hr IV .Q23H3M [facility] Rx #:[id number] Sodium Chloride 0.9% 1, 600 000 ml @ 50 mls/hr IV . Q20H [facility] Rx#:[id number] Oral 300 Other: Voiding Method Toilet Toilet # Voids 2 1 - Exam PHYSICAL EXAM: VITAL SIGNS: As above GENERAL: [Sitting up in bed, no acute distress] HEENT: [Pupils equal conjunctiva normal.] NECK: [Supple, no JVD] RESPIRATORY EFFORT:[Increased] LUNGS: [Scattered rhonchi with expiratory wheezing throughout] CARDIOVASCULAR[regular S1 and S2, no murmurs ,rubs or gallops, no edema] GI: [Abdomen soft, nontender, positive bowel sounds.] PSYCH: [Alert and oriented -3, mood and affect normal.] NEURO: [] Neurological examination did not reveal any focal deficits.] Microbiology 10/15/16 22:00 Urine,Voided Urine Culture - Final 10/15/16 20:48 Blood Blood Culture - Preliminary No Growth after 24 hours - Labs CBC & Chem 7: 10/17/16 05:52 10/17/16 05:52 Labs: Abnormal Lab Results - Last 24 Hours (Table) 10/16/16 10/17/16 10/17/16 Range/Units 21:30 05:52 05:52 RBC 3.31 L (3.80-5.40) m/uL Hgb 11.3 L (11.4-16.0) gm/dL MCV 108.0 H (80.0-100.0) fL Lymphocytes # 0.9 L (1.0-4.8) k/uL APTT (22.0-30.0) sec Chloride 109 H (98-107) mmol/L Carbon Dioxide 19 L (22-30) mmol/L Glucose 142 H (74-99) mg/dL POC Glucose (mg/dL) 125 H (75-99) mg/dL Calcium 8.3 L (8.4-10.2) mg/dL 10/17/16 10/17/16 Range/Units 05:52 06:17 RBC (3.80-5.40) m/uL Hgb (11.4-16.0) gm/dL MCV (80.0-100.0) fL Lymphocytes # (1.0-4.8) k/uL APTT 69.0 H (22.0-30.0) sec Chloride (98-107) mmol/L Carbon Dioxide (22-30) mmol/L Glucose (74-99) mg/dL POC Glucose (mg/dL) 147 H (75-99) mg/dL Calcium (8.4-10.2) mg/dL Microbiology - Last 24 Hours (Table) 10/15/16 22:00 Urine Culture - Final Urine,Voided 10/15/16 20:48 Blood Culture - Preliminary Blood No Growth after 24 hours Assessment and Plan Plan: 1. Shortness of breath, pulmonary embolism ruled out out. Acute left mid lung pneumonia, community-acquired, possibly malignancy. 2. [Diabetes mellitus]. 3. [Hypertension]. 4. [Dementia]. 5. [Depression]. 6. [Acute hypoxic respiratory failure secondary to #1]. 7. [Hyperlipidemia] 9. CAD with history of [place] 10. Current ongoing nicotine abuse 11. Leukocytosis secondary #1 Plan: Continue on current medication regime, nebulized bronchodilators, Rocephin , Zithromax, monitoring, and symptomatic treatment. Follow closely with pulmonary. Further recommendations to follow. Prognosis guarded given multiple complex medical issues. The impression and plan of care has been dictated as directed. : I performed a H&P examination of this patient and discussed the same with the dictator. I agree with the dictator's note. Any additional findings/opinions/ etc. will be noted.
[2016-10-17 20:43] LABS: Glucose,Whole Blood 126 mg/dL (75-99)
[2016-10-17] MEDS: ATORVASTATIN 20 MG TAB PO SCH (21:11)
[2016-10-17] MEDS: AZITHROMYCIN 500 MG in SODIUM CHLORIDE 0.9% 250 ML IVPB SCH (21:11)
[2016-10-17] MEDS: PRIMIDONE 50 MG TAB PO SCH (21:11)
[2016-10-17] MEDS: DONEPEZIL 10 MG TAB PO SCH (21:11)
[2016-10-17] MEDS: HEPARIN SODIUM,PORCINE 5,000 UNIT/ML 1 ML VIAL SQ SCH (21:20)
--- NOTE | 2016-10-18 06:03 | PN ---
DATE OF SERVICE: 10/17/2016 This 86-year-old woman who was admitted with multiple medical problems including shortness of breath also had pneumonia. The patient also had multiple other medical issues including acute respiratory failure also. Seen and evaluated the patient along with the nurse practitioner. Please refer to nurse practitioner notes and impression documented for further information. Increase ambulation. Closely follow with Dr. Castro. Further recommendations to follow.
[2016-10-18 06:19] LABS: Glucose,Whole Blood 81 mg/dL (75-99)
[2016-10-18] MEDS: PANTOPRAZOLE 40 MG TABLET PO SCH (06:31)
[2016-10-18 06:45] LABS: Basophils % (A) 0 %; CH 34.8; CHCM 34.3; Eosinophils # (A) 0.2 k/uL (0-0.7); Eosinophils % (A) 3 %; HCT 35.8 % (34.0-46.0); HDW 2.39; HGB 11.9 gm/dL (11.4-16.0); Luc # (Auto) 0.14; Luc % (Auto) 2; Lymphocytes # (A) 1.4 k/uL (1.0-4.8); Lymphocytes % (A) 22 %; MCH 33.9 pg (25.0-35.0); MCHC 33.3 g/dL (31.0-37.0); Mean Platelet Volume 9.1; Monocytes # (A) 0.2 k/uL (0-1.0); Monocytes % (A) 3 %; Neutrophils # (A) 4.5 k/uL (1.3-7.7); Neutrophils % (A) 69 %; RBC 3.52 m/uL (3.80-5.40); RDW 11.8 % (11.5-15.5); WBC 6.5 k/uL (3.8-10.6); WBC (Perox) 6.89
[2016-10-18 07:01] LABS: MCV 101.7 fL (80.0-100.0)
[2016-10-18 07:26] LABS: Anion Gap 11 mmol/L; Blood Urea Nitrogen 11 mg/dL (7-17); Calcium 8.6 mg/dL (8.4-10.2); Carbon Dioxide 20 mmol/L (22-30); Chloride 112 mmol/L (98-107); Glucose 78 mg/dL (74-99); Non-African American GFR(MDRD) >60 (>60 ml/min/1.73 sqM); Sodium 143 mmol/L (137-145)
[2016-10-18] MEDS: INSULIN LISPRO (humaLOG) 300 UNIT/3 ML VIAL SQ SCH ×2 (07:51→12:08)
[2016-10-18] MEDS: HEPARIN SODIUM,PORCINE 5,000 UNIT/ML 1 ML VIAL SQ SCH (08:04)
[2016-10-18] MEDS: amLODIPine 5 MG TAB PO SCH (08:04)
[2016-10-18] MEDS: ATENOLOL 25 MG TAB PO SCH (08:05)
[2016-10-18] MEDS: NICOTINE 14MG/24HR PATCH TRANSDERM SCH (08:05)
[2016-10-18] MEDS: ASPIRIN 81 MG CHEW PO SCH (08:05)
[2016-10-18] MEDS: ESCITALOPRAM 20 MG TAB PO SCH (08:05)
[2016-10-18] MEDS: SODIUM CHLORIDE 0.9% 1,000 ML IV SCH (08:05)
[2016-10-18] MEDS: MAGNESIUM OXIDE 400 MG TAB PO SCH (08:05)
[2016-10-18] MEDS: LISINOPRIL 2.5 MG TAB PO SCH (08:06)
[2016-10-18] MEDS: ACETAMINOPHEN TAB 325 MG TAB PO PRN (08:12)
[2016-10-18] MEDS: IPRATROPIUM-ALBUTEROL 3 ML NEB INHALATION SCH ×2 (08:40→11:42)
--- NOTE | 2016-10-18 11:05 | XR ---
EXAMINATION TYPE: XR chest 1V portable DATE OF EXAM: 10/18/2016 10:55 AM COMPARISON: Prior chest x-ray September HISTORY: Pneumonia TECHNIQUE: Single frontal view of the chest is obtained. FINDINGS: There are differences in technique, patient shows different rotation. Suspect there is debbie e improvement in aeration. Prominent lung volumes compatible with underlying COPD. The heart is enlar ged. There are coronary artery calcifications. Surgical clips in the left axilla. IMPRESSION: There may be some improvement in aeration, additional follow-up PA and lateral chest x-r ay recommended
[2016-10-18 11:32] LABS: Glucose,Whole Blood 128 mg/dL (75-99)
--- NOTE | 2016-10-18 11:56 | P.PN ---
Subjective Principal diagnosis: Acute community-acquired pneumonia This is an 86-year-old female who is a poor historian, patient was admitted with mostly symptoms of cough and shortness of breath. However according to the patient she has no idea why she was sent to the hospital, since admission the patient had a VQ scan which showed intermediate probability for pulmonary embolism. She had a chest x-ray which showed possible pneumonia involving the left midlung area she had a venous Doppler which came back negative for DVT, however considering her intermediate VQ scan, patient was placed on heparin, and I was asked to see her on consultation. I reviewed the patient's chest x- ray, and upon my physical examination, I felt were mostly dealing with pneumonia , strongly doubt pulmonary embolism, and considering her renal functioning was relatively normal, I went ahead and recommended a CT angiogram which came back negative for pulmonary embolism and it is correlating with the chest x-ray findings of possible pneumonia involving the left midlung area. Hence I will go ahead and discontinue heparin, and I will place more emphasis on antibiotics and bronchodilators on this patient. Of course the possibility of malignancy in the left lung is not entirely ruled out, but felt to be less likely at this point. However in the abnormality does not clear with time, bronchoscopy would have to be considered to rule out underlying malignancy. Again the patient is a very poor historian. Patient was seen today on 10/17/2016, feeling a bit better, less cough and less wheezing less shortness of breath. CBC is relatively unremarkable, electrolytes are normal and renal profile is normal. Reevaluated today on 10/18/2016, continues to improve gradually, less cough and less wheezing less shortness of breath. Chest x-ray showed definite improvement in the left midlung infiltrate. Hence patient could be considered for discharge planning on oral antibiotics and bronchodilators. Objective - Vital Signs Vital signs: Vital Signs Temp 98.4 F 10/18/16 08:00 Pulse 68 10/18/16 08:55 Resp 18 10/18/16 08:00 BP 138/57 10/18/16 08:00 Pulse Ox 95 10/18/16 08:43 Intake & Output 10/17/16 10/18/16 10/18/16 18:59 06:59 18:59 Output Total 250 Balance -250 Weight 60.8 kg 59.3 kg Output: Urine 250 Other: Voiding Method Toilet Toilet Toilet # Voids 1 0 1 # Bowel Movements 1 - Exam Physical Exam: Revealed an 86-year-old female in no distress HEENT:[Neck is supple.] [No neck masses.] [No thyromegaly.] [No JVD.] Chest: [Wheezing on forced expiratory maneuver only was noted] Cardiac Exam: [Normal S1 and S2, no S3 gallop, no murmur.] Abdomen: [Soft, nontender, no megaly, no rebound, no guarding, normal bowel sounds.] Extremities: [No clubbing, no edema, no cyanosis.] Neurological Exam: [No focal neurologic deficit.] - Labs CBC & Chem 7: 10/18/16 05:52 10/18/16 05:51 Labs: Abnormal Lab Results - Last 24 Hours (Table) 10/17/16 10/18/16 10/18/16 Range/Units 20:25 05:51 05:52 RBC 3.52 L (3.80-5.40) m/uL MCV 101.7 H D (80.0-100.0) fL Chloride 112 H (98-107) mmol/L Carbon Dioxide 20 L (22-30) mmol/L POC Glucose (mg/dL) 126 H (75-99) mg/dL 10/18/16 Range/Units 11:30 RBC (3.80-5.40) m/uL MCV (80.0-100.0) fL Chloride (98-107) mmol/L Carbon Dioxide (22-30) mmol/L POC Glucose (mg/dL) 128 H (75-99) mg/dL Microbiology - Last 24 Hours (Table) 10/15/16 20:48 Blood Culture - Preliminary Blood No Growth after 48 hours 10/15/16 22:00 Urine Culture - Final Urine,Voided Assessment and Plan Plan: Impression: 1 acute left midlung pneumonia, community-acquired, chest x-ray today showed significant improvement hence patient could be considered for discharge planning 2 history of multiple comorbidities including essential hypertension, dementia, diabetes, and depression. Recommendation: Continue antibiotics in the form of oral Ceftin 500 mg twice a day for one more week. Follow up on outpatient basis, cleared for discharge planning. Time with Patient: Less than 30
[2016-10-18] MEDS: MULTIVITAMINS, THERA 1 EACH TAB PO SCH (12:07)
[2016-10-18 12:23] VITALS: BP 118/60; PULSE 75; RESP 20; TEMP 97.2
--- NOTE | 2016-10-19 18:34 | DS ---
DATE OF ADMISSION: 10/14/2016 DATE OF DISCHARGE: 10/18/2016 FINAL DIAGNOSES: 1. Shortness of breath, possibly acute left mid lung pneumonia, possibly community acquired, rule out malignancy. 2. Diabetes mellitus type 2. 3. Hypertension, essential. 4. History of dementia. 5. Depression. 6. Acute hypoxic respiratory failure secondary to above, present on admission. 7. Hyperlipidemia. 8. Coronary artery disease associated with history of myocardial infarction. 9. Continued ongoing nicotine dependence. 10. Leukocytosis secondary to #1. 11. FULL CODE IN INSTRUCTIONS. DISCHARGE DISPOSITION: The patient will be discharged in stable condition with guarded prognosis. Discharge cleared by Dr. Castro. HISTORY OF PRESENT ILLNESS: This 86-year-old woman with a past medical history of multiple medical problems admitted with pneumonia. The patient also admitted for broad-spectrum antibiotics, improved significantly. Dr. Castro saw the patient, recommended outpatient followup. On exam, vitals are stable. CARDIOVASCULAR: S1 and S2 muffled. RESPIRATORY: Breath sounds diminished in the bases. A few scattered rhonchi. ABDOMEN: Soft. NERVOUS SYSTEM: Nonfocal. DISCHARGE ADVICE AND MEDICATIONS: 1. Diet is cardiac. 2. Activity limited until followup. 3. Follow up with Dr. Eduardo in 2 to 3 days. 4. Follow up with Dr. Castro as advised. 5. Medications are: a. Xanax 0.5 p.o. b.i.d. p.r.n. b. Tylenol 650 every 6 hours p.r.n. c. ProAir 90 mcg q.i.d. d. Ecotrin 81 mg p.o. daily. e. Tenormin 25 mg daily. f. Ceftin 500 mg p.o. b.i.d. for 5 days. g. Aricept 10 mg q.h.s. h. Lexapro 20 mg p.o. daily. i. Zestril 2.5 mg daily. j. Magnesium oxide 250 mg p.o. b.i.d. k. Multivitamin 1 p.o. daily. l. Habitrol 14 daily. m. Protonix 40 mg daily. n. Mysoline 50 mg p.o. q.h.s. o. Zocor 40 mg q.h.s. p. Norvasc 5 mg p.o. daily. q. Glucotrol 2.5 mg a.c. breakfast.
== END 2016-10-18 16:12 | disposition home health service (06) | DRG 193 ==
LOC: 6SEL 23:14
PROVIDERS: ADMIT Internal Medicine; ATTEND Internal Medicine
DX: J18.9 Pneumonia, unspecified organism (principal); J96.01 Acute respiratory failure with hypoxia; J44.0 Chronic obstructive pulmonary disease with (acute) lower respiratory infection; J44.1 Chronic obstructive pulmonary disease with (acute) exacerbation; F03.90 Unspecified dementia, unspecified severity, without behavioral disturbance, psychotic disturbance, mood disturbance, and anxiety; N18.3 Chronic kidney disease, stage 3 (moderate); E11.22 Type 2 diabetes mellitus with diabetic chronic kidney disease; I12.9 Hypertensive chronic kidney disease with stage 1 through stage 4 chronic kidney disease, or unspecified chronic kidney disease; E78.5 Hyperlipidemia, unspecified; R91.8 Other nonspecific abnormal finding of lung field; H91.90 Unspecified hearing loss, unspecified ear; H54.7 Unspecified visual loss; I25.10 Atherosclerotic heart disease of native coronary artery without angina pectoris; F32.9 Major depressive disorder, single episode, unspecified; D72.829 Elevated white blood cell count, unspecified; F17.210 Nicotine dependence, cigarettes, uncomplicated; I25.2 Old myocardial infarction; Z95.5 Presence of coronary angioplasty implant and graft; Z87.01 Personal history of pneumonia (recurrent); Z85.3 Personal history of malignant neoplasm of breast; E03.9 Hypothyroidism, unspecified; Z79.899 Other long term (current) drug therapy; Z79.82 Long term (current) use of aspirin; Z79.84 Long term (current) use of oral hypoglycemic drugs; Z83.3 Family history of diabetes mellitus; Z82.49 Family history of ischemic heart disease and other diseases of the circulatory system; Z88.5 Allergy status to narcotic agent; Z87.81 Personal history of (healed) traumatic fracture; Z71.3 Dietary counseling and surveillance
CPT/HCPCS: 71010; 71020; 71275; 78582; 80048; 80061; 81003; 83036; 83735; 85025; 85610; 85730; 87040; 87086; 93970; 94640; 94760

== ENCOUNTER 2017-01-17 16:48 | Inpatient (IN) | payer MEDICARE, BC ==
[2017-01-17 21:47] LABS: Glucose,Whole Blood 207 mg/dL (75-99)
[2017-01-18] MEDS ORDERED: HYDROcodone/APAP 5-325MG 1 EACH TAB PO PRN (00:45)
[2017-01-18] MEDS ORDERED: BISACODYL 5 MG TABLET.DR PO PRN (00:45)
[2017-01-18] MEDS: ACETAMINOPHEN TAB 500 MG TAB PO SCH ×4 (01:13→17:05)
[2017-01-18] MEDS: IPRATROPIUM-ALBUTEROL 3 ML NEB INHALATION SCH ×6 (03:44→20:45)
[2017-01-18 06:08] LABS: Glucose,Whole Blood 161 mg/dL (75-99)
[2017-01-18 07:05] LABS: Calcium 9.1 mg/dL (8.4-10.2); Potassium 4.6 mmol/L (3.5-5.1); Total Bilirubin 0.2 mg/dL (0.2-1.3); Total Protein 5.8 g/dL (6.3-8.2)
[2017-01-18] MEDS: INSULIN LISPRO (humaLOG) 300 UNIT/3 ML VIAL SQ SCH ×4 (07:07→21:57)
[2017-01-18] MEDS: FORMOTEROL FUMARATE 20 MCG/2 ML NEBU INHALATION SCH ×2 (07:38→20:45)
[2017-01-18] MEDS: BUDESONIDE 1 MG/2 ML NEBU INHALATION SCH ×2 (07:38→20:45)
[2017-01-18] MEDS: DONEPEZIL 10 MG TAB PO SCH (08:38)
[2017-01-18] MEDS: ASPIRIN 81 MG CHEW PO SCH (08:39)
[2017-01-18] MEDS: ATENOLOL 25 MG TAB PO SCH (08:39)
[2017-01-18] MEDS: FLUTICASONE 50MCG/SPRAY NASAL 16GM EA NOSTRIL SCH (08:39)
[2017-01-18] MEDS: FUROSEMIDE 10 MG/ML 2 ML VIAL IV SCH ×2 (08:40→21:56)
[2017-01-18] MEDS: LEVOFLOXACIN 500MG-D5W PMX 500 MG in DEXTROSE/WATER 1 100ML.BAG IVPB SCH (08:55)
--- NOTE | 2017-01-18 09:04 | P.CRDCN ---
History of Present Illness Consult date: 01/18/17 Requesting physician: Renny Lee Consult reason: congestive heart failure Chief complaint: Frequent falls History of present illness: This is a pleasant 86-year-old female who follows with Dr. Botello in the office. She has a history of coronary artery disease with prior LAD stenting in 2011, hypertension, diabetes, hyperlipidemia, breast cancer with prior left mastectomy, hypothyroidism, she was transferred here from [facility]. Most of the history was obtained from the chart although the patient can give somewhat of a history. Patient apparently has been having frequent falls at home. The patient apparently had been to the emergency room at [facility] on a few separate occasions because of falls. Her Norvasc simvastatin and primidone were discontinued. Patient also had a recent UTI and had been on antibiotics. Apparently she is also not been eating or drinking much at home. According to the patient, she does not pass out when she has her falls, she just becomes extremely weak. Blood pressure on arrival to [facility] 91/57, heart rate in the 100, temperature 98.1. Chest x-ray was performed at [facility] which revealed bilateral interstitial infiltrates with right perihilar patchy consolidation. WBC 16.3 hemoglobin 12.5 hematocrit 41.1 magnesium level II.4 troponin 0.00 BNP 1571, sodium 143, potassium 5.1, BUN 29, creatinine 1.3. EKG shows sinus tachycardia with no acute changes. A cardiology consultation was requested because of elevated BNP level. According to the patient, she states that she has been more short of breath than usual. She also states that she has had some peripheral edema, although at this time she has no edema. Labs which were drawn here, creatinine 1.3, BUN 43, potassium 4.6, alk phos 191, AST 13 ALT 26, BNP 1510. Patient is currently on aspirin 81 mg daily, Tenormin 25 mg daily, IV Lasix 20 mg every 12 hours, IV Levaquin. Blood pressure on arrival here 91/50, blood pressure this morning 100 /50. Patient's main complaint this morning is of discomfort in her back. Past Medical History Past Medical History: Cancer, Diabetes Mellitus, Hyperlipidemia, Hypertension, Myocardial Infarction (VT), Pneumonia, Renal Disease, Thyroid Disorder Additional Past Medical History / Comment(s): breast CA, benign tumors, femur fx (2011) Last Myocardial Infarction Date:: 2011 History of Any Multi-Drug Resistant Organisms: None Reported Past Surgical History: Breast Surgery, Heart Catheterization With Stent Additional Past Surgical History / Comment(s): stents 2011 Past Anesthesia/Blood Transfusion Reactions: No Reported Reaction Date of Last Stent Placement:: 2011 Past Psychological History: No Psychological Hx Reported Smoking Status: Former smoker Past Alcohol Use History: None Reported Additional Past Alcohol Use History / Comment(s): smokes 2-3 ciagrettes a day, quit for 4 years Past Drug Use History: None Reported - Past Family History Mother Family Medical History: Diabetes Mellitus Additional Family Medical History / Comment(s): varicose veins, at 57 Sister(s) Family Medical History: Diabetes Mellitus Brother(s) Family Medical History: Myocardial Infarction (VT) Father Additional Family Medical History / Comment(s): back problems Medications and Allergies Home Medications Medication Instructions Recorded Confirmed Type ALPRAZolam [Xanax] 0.25 mg PO BID@0900,2000 10/15/16 01/17/17 History Aspirin [Adult Low Dose Aspirin EC] 81 mg PO DAILY 10/15/16 01/17/17 History Atenolol [Tenormin] 25 mg PO DAILY 10/15/16 01/17/17 History Donepezil [Aricept] 10 mg PO DAILY 10/15/16 01/17/17 History Escitalopram [Lexapro] 20 mg PO DAILY 10/15/16 01/17/17 History Lisinopril [Zestril] 2.5 mg PO DAILY 10/15/16 01/17/17 History Acetaminophen [Tylenol] 500 mg PO Q8H 01/17/17 01/17/17 History Albuterol Inhaler [Ventolin Hfa 1 puff INHALATION RT-Q4H PRN 01/17/17 01/17/17 History Inhaler] Bisacodyl 10 mg PO DAILY PRN 01/17/17 01/17/17 History Fexofenadine HCl [Mira Allergy] 180 mg PO DAILY 01/17/17 01/17/17 History Fluticasone Nasal [place] [Flonase 1 spray EA NOSTRIL DAILY 01/17/17 01/17/17 History Nasal [place]] Furosemide [Lasix] 20 mg PO BID@0900,1700 01/17/17 01/17/17 History Furosemide [Lasix] 40 mg PO ONCE 01/17/17 01/17/17 History HYDROcodone/APAP 5-325MG [[place] 1 tab PO Q6HR PRN 01/17/17 01/17/17 History 5-325] MORPHINE ORAL SOLN 20mg/mL 5 mg PO Q4H PRN 01/17/17 01/17/17 History [Roxanol Oral Soln Conc 20MG/ML] glipiZIDE [Glucotrol] 2.5 mg PO DAILY 01/17/17 01/17/17 History Allergies Allergy/AdvReac Type Severity Reaction Status Date / Time codeine Allergy Itching Verified 10/15/16 10:53 Physical Exam Vitals: Vital Signs Temp Pulse Pulse Resp BP Pulse Ox 01/18/17 08:08 96 01/18/17 08:00 96.6 F L 110 H 20 100/54 96 01/18/17 07:56 96 01/18/17 07:55 96 01/18/17 07:38 92 01/18/17 04:00 97.5 F L 100 23 80/51 91 L 01/18/17 03:57 96 01/18/17 03:46 100 01/18/17 02:00 96 20 96/54 92 L 01/18/17 00:10 92 01/18/17 00:00 91 01/17/17 20:15 97.8 F 98 24 91/55 95 Intake and Output 01/17/17 01/18/17 01/18/17 22:59 06:59 14:59 Output Total 0 Balance 0 Output: Urine 0 Other: Voiding Method Diaper Incontinent # Voids 2 Weight 69 kg 69 kg PHYSICAL EXAMINATION: HEENT: Head is atraumatic, normocephalic. Pupils equal, round. Neck is supple. There is no elevated jugular venous pressure. Ecchymosis noted to the right upper facial and orbital area HEART EXAMINATION: Heart S1 and S2 systolic murmur is heard. CHEST EXAMINATION: Lungs are clear with diminished air entry to bilateral bases. ABDOMEN: Soft, nontender. Bowel sounds are heard. No organomegaly noted. EXTREMITIES: 2+ peripheral pulses with no evidence of peripheral edema and no calf tenderness noted. NEUROLOGIC patient is awake, alert and oriented -2. . Results 01/18/17 06:20 Cardiac Enzymes 01/18/17 Range/Units 06:20 AST 13 L (14-36) U/L Comprehensive Metabolic Panel 01/18/17 Range/Units 06:20 Sodium 145 (137-145) mmol/L Potassium 4.6 (3.5-5.1) mmol/L Chloride 106 (98-107) mmol/L Carbon Dioxide 28 (22-30) mmol/L BUN 43 H (7-17) mg/dL Creatinine 1.30 H (0.52-1.04) mg/dL Glucose 152 H (74-99) mg/dL Calcium 9.1 (8.4-10.2) mg/dL AST 13 L (14-36) U/L ALT 26 (9-52) U/L Alkaline Phosphatase 191 H (38-126) U/L Total Protein 5.8 L (6.3-8.2) g/dL Albumin 2.7 L (3.5-5.0) g/dL Current Medications Generic Name Dose Route Start Last Admin Trade Name Freq PRN Reason Stop Dose Admin Acetaminophen 500 mg 01/18/17 00:45 01/18/17 08:38 Tylenol Tab PO 500 mg Q8H LISA Administration Hydrocodone Bitart/Acetaminophen 1 each 01/18/17 00:45 Douglas 5-325 PO Q6HR PRN Breakthrough Pain Albuterol/Ipratropium 3 ml 01/18/17 00:00 01/18/17 07:38 Duoneb 0.5 Mg-3 Mg/3 Ml Soln INHALATION 3 ml RT-Q4H LISA Administration Aspirin 81 mg 01/18/17 09:00 01/18/17 08:39 Aspirin PO 81 mg DAILY LISA Administration Atenolol 25 mg 01/18/17 09:00 01/18/17 08:39 Tenormin PO 25 mg DAILY LISA Administration Bisacodyl 10 mg 01/18/17 00:45 Dulcolax PO DAILY PRN Constipation Budesonide 1 mg 01/18/17 08:00 01/18/17 07:38 Pulmicort INHALATION 1 mg RT-BID LISA Administration Donepezil HCl 10 mg 01/18/17 09:00 01/18/17 08:38 Aricept PO 10 mg DAILY LISA Administration Fluticasone Propionate 1 spray 01/18/17 09:00 01/18/17 08:39 Flonase Nasal [place] EA NOSTRIL 1 spray DAILY LISA Administration Formoterol Fumarate 20 mcg 01/18/17 08:00 01/18/17 07:38 Perforomist INHALATION 20 mcg RT-BID LISA Administration Furosemide 20 mg 01/18/17 09:00 01/18/17 08:40 Lasix IV 20 mg Q12HR LISA Administration Glipizide 2.5 mg 01/18/17 09:00 01/18/17 08:39 Glucotrol PO 2.5 mg DAILY LISA Administration Levofloxacin 500 mg/ IV 100 mls @ 100 mls/hr 01/18/17 09:00 Solution IVPB Q24HR LISA Insulin Human Lispro 0 unit 01/18/17 07:30 01/18/17 07:07 Humalog SQ 1 unit ACHS LISA Administration Protocol Intake and Output 01/17/17 01/18/17 01/18/17 22:59 06:59 14:59 Output Total 0 Balance 0 Output: Urine 0 Other: Voiding Method Diaper Incontinent # Voids 2 Weight 69 kg 69 kg 01/18/17 06:20 EKG Interpretations (text) EKG shows a sinus tachycardia with no acute changes. Assessment and Plan Plan: Assessment and plan #1 frequent falls #2 elevated BNP level, suggestive of possible congestive cardiac failure. Chest x-ray reveals bilateral infiltrates. A repeat chest x-ray was performed here. #3 history of coronary artery disease with prior LAD stent in 2011 #4 hypertension #5 hyperlipidemia #6 diabetes #7 history of breast CA with left mastectomy Plan We will obtain an Echo with Doppler study. Review chest X-ray. Continue IV Lasix. Check orthostatic B/P and heart rate qshift. DNP note has been reviewed, I agree with a documented findings and plan of care. Patient was seen and examined.
--- NOTE | 2017-01-18 09:06 | XR ---
EXAMINATION TYPE: XR chest 1V portable DATE OF EXAM: 01/18/2017 HISTORY: CHF . REFERENCE: Previous study dated 11/01/2016. FINDINGS: The patient is rotated. There is pleural thickening on the right. There are diffuse increas ed interstitial markings, unchanged from previous. There is some airspace disease present at the righ t CP angle. This may have been partially present before. No lobar consolidation is seen. The heart is not enlarged. Pleural spaces appear clear. IMPRESSION: NO SIGNIFICANT CHANGE IN THE APPEARANCE OF THE CHEST FROM THE PREVIOUS STUDY.
--- NOTE | 2017-01-18 09:52 | HP ---
DATE OF ADMISSION: 01/17/2017 CHIEF COMPLAINT: Shortness of breath. HISTORY OF PRESENT ILLNESS: This 86-year-old woman who is a resident of [facility] in [place] and being followed Dr. Chucho Arrieta in the outpatient setting, had presented to [facility] with complaints of shortness of breath, which chest x-ray showed congestive heart failure and pleural effusion, and the patient was started on BiPAP. Patient also had some change in mental status. Because of lack of improvement, the patient was discussed at length over the phone and the patient directly admitted to [facility] for further evaluation and treatment. Currently, the patient is stuporous. Patient is on Ventimask. Unable to give a coherent history. Most of the history is taken from my discussion with staff as well as review of the chart. PAST MEDICAL HISTORY: Diabetes, hypertension, history of myocardial infarction, pneumonia, history of thyroid cancer and breast cancer with surgery, coronary artery disease and stent. Medications prior to admission include home medications: 1. Glucotrol 2.5 daily. 2. Morphine. 3. Roxanol 5 mg q.4 p.r.n. 4. Zestril 2.5 mg daily. 5. [place] 5 mg q.6 p.r.n. 6. Lasix 20 mg p.o. b.i.d. 7. Fluticasone one spray in nostril daily. 8. Mira 180 mg p.o. daily. 9. Lexapro 20 mg p.o. daily. 10. Aricept 10 mg p.o. daily. 11. Bisacodyl 10 mg p.o. daily p.r.n. 12. Tenormin 25 mg p.o. daily. 13. Ecotrin 81 mg p.o. daily. 14. Ventolin 1 puff q.4 p.r.n. 15. Tylenol 500 mg q.8 p.r.n. 16. Xanax 0.25 p.o. b.i.d. ALLERGIES: CODEINE. FAMILY HISTORY: History of diabetes mellitus type 2, history of varicose veins. Social history and review of systems could not be taken. History of smoking per chart. PHYSICAL EXAMINATION: Patient is stuporous. Pulse 98, blood pressure 91/50, respirations 24, temperature 97.8, pulse ox 94% on 15 liters nonrebreather. HEENT: Conjunctivae normal. Oral mucosa moist. NECK: No jugular venous distention. No carotid bruit. No lymph node enlargement. CARDIOVASCULAR: S1 and S2. No S3, no S4. RESPIRATORY: Breath sounds diminished at the bases. Bilateral scattered rhonchi and crackles. ABDOMEN: Soft, nontender. Mass not palpable. LEGS: No edema, no swelling. NERVOUS SYSTEM: Higher function as mentioned. Moves all four limbs. No focal motor deficits. LYMPHATIC: No lymphadenopathy in the neck, axillae or groin. SKIN: No ulcer, rash or bleeding. Labs at this time are not available. Chest x-ray, official chest x-ray is also not available. ASSESSMENT: 1. Shortness of breath for evaluation and possible congestive heart failure acute exacerbation, rule out chronic obstructive pulmonary disease acute exacerbation. 2. Change in mental status, metabolic encephalopathy acute on chronic. 3. Gait dysfunction. 4. Diabetes mellitus type 2. 5. Hypertension, essential. 6. Hyperlipidemia. 7. History of myocardial infarction. 8. History of pneumonia. 9. History of hypothyroidism. 10. History of breast cancer. 11. History of femoral fracture. 12. History of coronary artery disease and stent. 13. Remote history of nicotine dependence. 14. History of dementia. 15. NO CODE, NO CPR, NO VENT. RECOMMENDATIONS AND DISCUSSION: In this 86-year-old woman who presented with multiple complex medical issues. We will monitor the patient closely. Continue the current medications and symptomatic treatment. Initiate broad spectrum IV antibiotics, empiric antibiotics. Consult Dr. Arambula and Cardiology. Guarded prognosis because of multiple complex medical issues. Further recommendations to follow. Repeat labs will be ordered. See orders for details. Chest x-ray has been repeated. BNP will also be ordered. MTDD
--- NOTE | 2017-01-18 10:07 | ECHOF ---
Referral Reason:chf MEASUREMENTS -------- HEIGHT: 162.6 cm WEIGHT: 68.9 kg BP: 80/51 IVSd: 0.8 cm (0.6 - 1.1) LVIDd: 2.1 cm (3.9 - 5.3) LVPWd: 0.9 cm (0.6 - 1.1) IVSs: 0.9 cm LVIDs: 1.5 cm LVPWs: 1.2 cm Ao Diam: 3.0 cm (2.0 - 3.7) AV Cusp: 1.0 cm (1.5 - 2.6) LA Diam: 2.4 cm (2.7 - 3.8) MV EXCURSION: 5.358 mm (> 18.000) MV EF SLOPE: 31 mm/s (70 - 150) EPSS: 0.8 cm MV E Kulwinder: 0.70 m/s MV DecT: 115 ms MV A Kulwinder: 1.11 m/s MV E/A Ratio: 0.62 AV maxP.89 mmHg AV meanP.33 mmHg RAP: 5.00 mmHg RVSP: 10.82 mmHg FINDINGS -------- Sinus rhythm. This was a technically difficult study with suboptimal views. Pt had mastectomy Left ventricular wall thickness is normal. Overall left ventricular systolic function is normal with, an EF between 55 - 60 %. The right ventricle is normal in size and function. The left atrium is normal in size. The right atrium is normal in size. Aortic valve is trileaflet and is mildly thickened. There is mild aortic stenosis present. Peak/mean gradient across the Aortic Valve is 11.89mmHg / 7.33mmHg. The mitral valve leaflets are mildly thickened. Mild mitral annular calcification present. Mild mitral regurgitation is present. Mild tricuspid regurgitation present. The right ventricular systolic pressure, as measured by Doppler, is 10.82mmHg. Pulmonic valve appears structurally normal. The aortic root size is normal. The pericardium is normal. CONCLUSIONS -------- 1. Sinus rhythm. 2. There is mild aortic stenosis present. 3. Peak/mean gradient across the Aortic Valve is 11.89mmHg / 7.33mmHg. 4. The mitral valve leaflets are mildly thickened. 5. Mild mitral annular calcification present. 6. Mild mitral regurgitation is present. 7. Mild tricuspid regurgitation present. 8. The right ventricular systolic pressure, as measured by Doppler, is 10.82mmHg. 9. Pulmonic valve appears structurally normal. 10. The aortic root size is normal. 11. The pericardium is normal. 12. This was a technically difficult study with suboptimal views. 13. Pt had mastectomy 14. Left ventricular wall thickness is normal. 15. Overall left ventricular systolic function is normal with, an EF between 55 - 60 %. 16. The right ventricle is normal in size and function. 17. The left atrium is normal in size. 18. The right atrium is normal in size. 19. Aortic valve is trileaflet and is mildly thickened. MANAGER LSW: Noris Lee RDCS
[2017-01-18 12:27] LABS: Glucose,Whole Blood 175 mg/dL (75-99)
[2017-01-18 12:56] LABS: Basophils % (A) 0 %; CH 33.8; CHCM 29.8; Eosinophils # (A) 0.1 k/uL (0-0.7); Eosinophils % (A) 1 %; HCT 38.6 % (34.0-46.0); HDW 2.25; HGB 11.4 gm/dL (11.4-16.0); Hypochromasia Marked; Luc # (Auto) 0.13; Luc % (Auto) 1; Lymphocytes # (A) 0.6 k/uL (1.0-4.8); Lymphocytes % (A) 5 %; MCH 33.5 pg (25.0-35.0); MCHC 29.4 g/dL (31.0-37.0); Macrocytosis Marked; Mean Platelet Volume 9.1; Monocytes # (A) 0.4 k/uL (0-1.0); Monocytes % (A) 3 %; Neutrophils # (A) 11.9 k/uL (1.3-7.7); Neutrophils % (A) 91 %; RBC 3.39 m/uL (3.80-5.40); RDW 12.2 % (11.5-15.5); WBC 13.2 k/uL (3.8-10.6); WBC (Perox) 12.71
[2017-01-18 14:14] LABS: Manual Review Performed
--- NOTE | 2017-01-18 14:34 | P.CNPUL ---
History of Present Illness Consult date: 01/18/17 Requesting physician: Renny Lee Reason for consult: dyspnea, abnormal CXR/CT Chief complaint: Shortness of breath, altered mental status History of present illness: This is a very pleasant 86-year-old female patient who resides at [facility] and follows with Dr. English mccormack with previous stent placement s her primary care physician. She has history of diabetes mellitus, hypertension, coronary disease, thyroid cancer, breast cancer, dementia. She does have a significant smoking history and chronic obstructive pulmonary disease. She was transferred from there to [facility] with complaints of increasing shortness of breath. A chest x-ray had revealed evidence of congestive heart failure with pleural effusion and she was initiated on BiPAP. From there she was transferred here to the selective care unit. She is seen today in consultation. She is somewhat of a poor historian. She is slightly confused and agitated currently. She does admit to breathing easier today as compared to yesterday. She has a dry nonproductive cough. She is requiring 5 L/m per nasal cannula to maintain O2 saturations in the 90s. Currently afebrile. Slightly tachycardic. Her chest x-ray does reveal some pleural thickening on the right with some diffuse increased interstitial markings however this is unchanged as compared to previous in October 2016. Review of Systems ROS unobtainable: due to mental status Past Medical History Past Medical History: Cancer, Diabetes Mellitus, Hyperlipidemia, Hypertension, Myocardial Infarction (ID), Pneumonia, Renal Disease, Thyroid Disorder Additional Past Medical History / Comment(s): breast CA, benign tumors, femur fx (2011) Last Myocardial Infarction Date:: 2011 History of Any Multi-Drug Resistant Organisms: None Reported Past Surgical History: Breast Surgery, Heart Catheterization With Stent Additional Past Surgical History / Comment(s): stents 2011 Past Anesthesia/Blood Transfusion Reactions: No Reported Reaction Date of Last Stent Placement:: 2011 Past Psychological History: No Psychological Hx Reported Smoking Status: Former smoker Past Alcohol Use History: None Reported Additional Past Alcohol Use History / Comment(s): smokes 2-3 ciagrettes a day, quit for 4 years Past Drug Use History: None Reported - Past Family History Mother Family Medical History: Diabetes Mellitus Additional Family Medical History / Comment(s): varicose veins, at 57 Sister(s) Family Medical History: Diabetes Mellitus Brother(s) Family Medical History: Myocardial Infarction (ID) Father Additional Family Medical History / Comment(s): back problems Medications and Allergies Home Medications Medication Instructions Recorded Confirmed Type ALPRAZolam [Xanax] 0.25 mg PO BID@0900,2000 10/15/16 01/17/17 History Aspirin [Adult Low Dose Aspirin EC] 81 mg PO DAILY 10/15/16 01/17/17 History Atenolol [Tenormin] 25 mg PO DAILY 10/15/16 01/17/17 History Donepezil [Aricept] 10 mg PO DAILY 10/15/16 01/17/17 History Escitalopram [Lexapro] 20 mg PO DAILY 10/15/16 01/17/17 History Lisinopril [Zestril] 2.5 mg PO DAILY 10/15/16 01/17/17 History Acetaminophen [Tylenol] 500 mg PO Q8H 01/17/17 01/17/17 History Albuterol Inhaler [Ventolin Hfa 1 puff INHALATION RT-Q4H PRN 01/17/17 01/17/17 History Inhaler] Bisacodyl 10 mg PO DAILY PRN 01/17/17 01/17/17 History Fexofenadine HCl [Mira Allergy] 180 mg PO DAILY 01/17/17 01/17/17 History Fluticasone Nasal [place] [Flonase 1 spray EA NOSTRIL DAILY 01/17/17 01/17/17 History Nasal [place]] Furosemide [Lasix] 20 mg PO BID@0900,1700 01/17/17 01/17/17 History Furosemide [Lasix] 40 mg PO ONCE 01/17/17 01/17/17 History HYDROcodone/APAP 5-325MG [[place] 1 tab PO Q6HR PRN 01/17/17 01/17/17 History 5-325] MORPHINE ORAL SOLN 20mg/mL 5 mg PO Q4H PRN 01/17/17 01/17/17 History [Roxanol Oral Soln Conc 20MG/ML] glipiZIDE [Glucotrol] 2.5 mg PO DAILY 01/17/17 01/17/17 History Allergies Allergy/AdvReac Type Severity Reaction Status Date / Time codeine Allergy Itching Verified 10/15/16 10:53 Physical Exam Vitals: Vital Signs Temp Pulse Pulse Resp BP Pulse Ox 01/18/17 11:47 103 H 22 01/18/17 11:46 97.0 F L 103 H 22 100/54 96 01/18/17 11:30 92 01/18/17 11:19 92 01/18/17 08:08 96 01/18/17 08:00 96.6 F L 110 H 20 100/54 96 01/18/17 07:56 96 01/18/17 07:55 96 01/18/17 07:38 92 01/18/17 04:00 97.5 F L 100 23 80/51 91 L 01/18/17 03:57 96 01/18/17 03:46 100 01/18/17 02:00 96 20 96/54 92 L 01/18/17 00:10 92 01/18/17 00:00 91 01/17/17 20:15 97.8 F 98 24 91/55 95 Intake and Output 01/17/17 01/18/17 01/18/17 22:59 06:59 14:59 Intake Total 80 Output Total 0 Balance 0 80 Intake: Oral 80 Output: Urine 0 Other: Voiding Method Diaper Incontinent # Voids 2 Weight 69 kg 69 kg GENERAL EXAM: Frail, cachectic. Alert, oriented times one, comfortable in no apparent distress. HEAD: Normocephalic. EYES: Normal reaction of pupils, equal size. NOSE: Clear with pink turbinates. THROAT: No erythema or exudates. NECK: No masses, no JVD. CHEST: No chest wall deformity. LUNGS: Equal air entry with few scattered rhonchi. Diminished. CVS: S1 and S2 normal with no audible murmurs, regular rhythm. ABDOMEN: No hepatosplenomegaly, normal bowel sounds, no guarding or rigidity. Extremities: There is no significant peripheral edema. No clubbing, no cyanosis. Peripheral pulses are intact. Results - Laboratory Findings CBC and BMP: 01/18/17 06:20 01/18/17 06:20 Abnormal lab findings: Abnormal Labs 01/17/17 01/18/17 01/18/17 21:46 06:07 06:20 WBC RBC MCV MCHC Neutrophils # Lymphocytes # BUN 43 H Creatinine 1.30 H Glucose 152 H POC Glucose (mg/dL) 207 H 161 H AST 13 L Alkaline Phosphatase 191 H Total Protein 5.8 L Albumin 2.7 L 01/18/17 01/18/17 06:20 11:57 WBC 13.2 H RBC 3.39 L MCV 114.0 H MCHC 29.4 L Neutrophils # 11.9 H Lymphocytes # 0.6 L BUN Creatinine Glucose POC Glucose (mg/dL) 175 H AST Alkaline Phosphatase Total Protein Albumin - Diagnostic Findings Chest x-ray: image reviewed Assessment and Plan Plan: Impression: #1 Acute exacerbation of chronic obstructive pulmonary disease. #2 Diabetes mellitus. #3 Hyperlipidemia. #4 Hypertension. #5 History of breast cancer. #6 Hypothyroidism. #7 Coronary artery disease with previous stent placement. #8 Dementia. #9 Extended care facility resident. #10 Poor overall functional performance based on the above-mentioned multiple comorbidities. Plan: The patient was seen and evaluated by Dr. Arambula. Her chest x-ray and labs were reviewed. We will go ahead and treat her for her COPD exacerbation with bronchodilators every 4 hours and as needed, Pulmicort and Perforomist inhalations twice daily. We will hold off on steroids for now based on her dementia and slight agitation. She is on empiric antibiotics in the form of Levaquin. She is also being diuresed with Lasix 20 mg IV twice a day. We will increase her activity as tolerated. We'll continue to follow and make further recommendations based on her clinical status. Time with Patient: Greater than 30
[2017-01-18 16:06] LABS: Hemoglobin A1C 5.7 % (4.2-6.1)
[2017-01-18 16:56] LABS: Glucose,Whole Blood 52 mg/dL (75-99)
[2017-01-18 17:08] LABS: Glucose,Whole Blood 71 mg/dL (75-99)
[2017-01-18] MEDS ORDERED: IPRATROPIUM-ALBUTEROL 3 ML NEB INHALATION PRN (20:47)
[2017-01-18 21:08] LABS: Glucose,Whole Blood 99 mg/dL (75-99)
[2017-01-18] MEDS ORDERED: risperiDONE 0.25 MG TAB PO PRN (23:18)
[2017-01-19] MEDS: ACETAMINOPHEN TAB 500 MG TAB PO SCH ×4 (00:19→18:17)
[2017-01-19 02:06] LABS: Glucose,Whole Blood 120 mg/dL (75-99)
[2017-01-19 06:06] LABS: Glucose,Whole Blood 116 mg/dL (75-99)
[2017-01-19] MEDS: INSULIN LISPRO (humaLOG) 300 UNIT/3 ML VIAL SQ SCH ×4 (06:25→22:37)
[2017-01-19] MEDS: IPRATROPIUM-ALBUTEROL 3 ML NEB INHALATION SCH ×4 (06:56→19:31)
[2017-01-19] MEDS: FORMOTEROL FUMARATE 20 MCG/2 ML NEBU INHALATION SCH ×2 (06:56→19:31)
[2017-01-19] MEDS: BUDESONIDE 1 MG/2 ML NEBU INHALATION SCH ×2 (06:56→19:31)
[2017-01-19] MEDS: LEVOFLOXACIN 500MG-D5W PMX 500 MG in DEXTROSE/WATER 1 100ML.BAG IVPB SCH (07:39)
[2017-01-19] MEDS: FUROSEMIDE 10 MG/ML 2 ML VIAL IV SCH (07:40)
[2017-01-19] MEDS: FLUTICASONE 50MCG/SPRAY NASAL 16GM EA NOSTRIL SCH (07:41)
[2017-01-19] MEDS: ATENOLOL 25 MG TAB PO SCH (07:41)
[2017-01-19] MEDS: ASPIRIN 81 MG CHEW PO SCH (07:41)
[2017-01-19] MEDS: DONEPEZIL 10 MG TAB PO SCH (07:41)
[2017-01-19 08:00] LABS: Basophils % (A) 0 %; CH 33.2; CHCM 30.2; Eosinophils # (A) 0.1 k/uL (0-0.7); Eosinophils % (A) 1 %; HCT 35.8 % (34.0-46.0); HDW 2.22; Hypochromasia Moderate; Luc # (Auto) 0.15; Luc % (Auto) 2; Lymphocytes # (A) 0.7 k/uL (1.0-4.8); Lymphocytes % (A) 7 %; MCH 33.9 pg (25.0-35.0); MCHC 30.8 g/dL (31.0-37.0); MCV 110.3 fL (80.0-100.0); Macrocytosis Marked; Mean Platelet Volume 7.7; Monocytes # (A) 0.3 k/uL (0-1.0); Monocytes % (A) 3 %; Neutrophils # (A) 8.9 k/uL (1.3-7.7); Neutrophils % (A) 88 %; RBC 3.25 m/uL (3.80-5.40); RDW 12.3 % (11.5-15.5); WBC 10.2 k/uL (3.8-10.6); WBC (Perox) 10.46
[2017-01-19 08:30] LABS: Anion Gap 13 mmol/L; Blood Urea Nitrogen 40 mg/dL (7-17); Calcium 9.1 mg/dL (8.4-10.2); Carbon Dioxide 24 mmol/L (22-30); Chloride 111 mmol/L (98-107); Glucose 111 mg/dL (74-99); Non-African American GFR(MDRD) 53 (>60 ml/min/1.73 sqM); Potassium 4.5 mmol/L (3.5-5.1); Sodium 148 mmol/L (137-145)
[2017-01-19 09:00] LABS: Manual Review Performed
--- NOTE | 2017-01-19 09:02 | PN ---
DATE OF SERVICE: 01/18/2017 This 86-year-old woman was admitted with shortness of breath. She is being closely monitored. Sensorium has definitely improved. The possibility of CHF and COPD has been considered at this time. Elevated BNP was also noted. The patient also had history of coronary artery disease. A 2-D echo with Doppler was done this morning, which showed ejection fraction of 55% to 60% and multiple valvular abnormalities as well. PAST MEDICAL HISTORY: Reviewed. REVIEW OF SYSTEM: Could not be taken, patient is confused at this time. The patient has been on BiPAP. Current medications are reviewed and include: 1. Tylenol p.r.n. 2. [place] 5 mg p.r.n. 3. DuoNeb q.i.d. and p.r.n. 4. Aspirin 81 mg. 5. Tenormin 25 mg daily. 7. Pulmicort 1 mg b.i.d. 8. Aricept 50 mg daily. 9. Flonase. 10. Lasix 20 mg IV. 11. Glucotrol 2.5 mg daily. 12. Humalog. 13. Levaquin. At this time the patient is alert, oriented x1. Pulse 95, blood pressure 116/62, respirations 22, temperature 97.8, pulse ox 95% on 4 L. HEENT: Oral mucosa moist. NECK: No jugular venous distention. No carotid bruit. No lymph node enlargement. CARDIOVASCULAR SYSTEM: S1, S2 muffled. RESPIRATORY: Bilateral scattered rhonchi and crackles, expiratory wheezing also present, slightly better than yesterday. ABDOMEN: Soft, nontender. EXTREMITIES: No edema. NERVOUS SYSTEM: Mild diffuse weakness. LABS: At this time, WBC 13.9, hemoglobin 11.3, hemoglobin 14, creatinine is 1.30. ASSESSMENT: 1. Shortness of breath, for evaluation, possibly congestive heart failure acute exacerbation, with acute on chronic diastolic, ejection fraction 55% to 60%. 2. Chronic obstructive pulmonary disease, acute exacerbation. 3. Increased creatinine with possible chronic kidney disease, stage III. 4. Change in mental status, metabolic encephalopathy, acute on chronic. 5. Gait dysfunction. 6. Diabetes mellitus type 2. 7. Hypertension, essential. 8. Hyperlipidemia. 9. History of myocardial infarction. 10. History of pneumonia. 11. History of hypothyroidism. 12. History of breast cancer. 13. History of femoral fracture. 14. History of coronary artery disease and stent. 15. Remote history of nicotine dependence. 16. History of dementia. 17. NO CODE, NO CPR, NO VENT. RECOMMENDATIONS AND DISCUSSION: Recommend to continue with monitoring, continue symptomatic treatment. Follow electrolytes closely. Repeat labs. Continue with bronchodilators. Also recommend UA with micro. Otherwise continue the rest of the medications including empiric antibiotics. Cardiology and pulmonology input appreciated. Prognosis guarded because of multiple complex medical issues. Further recommendations to follow. MTDD
[2017-01-19 10:13] LABS: Glucose,Whole Blood 133 mg/dL (75-99)
--- NOTE | 2017-01-19 11:51 | P.PN ---
Subjective Principal diagnosis: COPD exacerbation. This is a very pleasant 86-year-old female patient who resides at [facility] and follows with Dr. English mccormack with previous stent placement s her primary care physician. She has history of diabetes mellitus, hypertension, coronary disease, thyroid cancer, breast cancer, dementia. She does have a significant smoking history and chronic obstructive pulmonary disease. She was transferred from there to [facility] with complaints of increasing shortness of breath. A chest x-ray had revealed evidence of congestive heart failure with pleural effusion and she was initiated on BiPAP. From there she was transferred here to the selective care unit. She is seen today in consultation. She is somewhat of a poor historian. She is slightly confused and agitated currently. She does admit to breathing easier today as compared to yesterday. She has a dry nonproductive cough. She is requiring 5 L/m per nasal cannula to maintain O2 saturations in the 90s. Currently afebrile. Slightly tachycardic. Her chest x-ray does reveal some pleural thickening on the right with some diffuse increased interstitial markings however this is unchanged as compared to previous in October 2016. The patient is seen again today in follow-up 01/19/2017 on the selective care unit. She is resting more comfortably in bed. A little less agitated than yesterday. She is however refusing her breathing treatments. She states she is breathing better today as compared to yesterday. Her oxygen requirements have improved as well. She is maintaining O2 saturations in the mid 90s on 2 L/ m per nasal cannula. She is afebrile. No leukocytosis. She remains on IV Lasix. Current creatinine 1.00. Objective - Vital Signs Vital signs: Vital Signs Temp 97.6 F 01/19/17 08:00 Pulse 100 01/19/17 11:45 Resp 20 01/19/17 11:45 BP 124/66 01/19/17 11:45 Pulse Ox 95 01/19/17 11:45 Intake & Output 01/18/17 01/19/17 01/19/17 18:59 06:59 18:59 Intake Total 520 160 80 Balance 520 160 80 Weight 67.5 kg Intake: IV 240 160 .9 @ 20 240 160 Intake, IV Titration 100 Amount Levofloxacin 500Mg-D5w 100 Pmx 500 mg In Dextrose/ Water 1 100ml.bag @ 100 mls/hr IVPB Q24HR [facility] Rx# :[id number] Oral 180 80 Other: Voiding Method Diaper Diaper Diaper Incontinent Incontinent Incontinent # Voids 1 - Exam GENERAL EXAM: Frail, cachectic. Alert, oriented times one, comfortable in no apparent distress. HEAD: Normocephalic. EYES: Normal reaction of pupils, equal size. NOSE: Clear with pink turbinates. THROAT: No erythema or exudates. NECK: No masses, no JVD. CHEST: No chest wall deformity. LUNGS: Equal air entry with few scattered rhonchi. Diminished. CVS: S1 and S2 normal with no audible murmurs, regular rhythm. ABDOMEN: No hepatosplenomegaly, normal bowel sounds, no guarding or rigidity. Extremities: There is no significant peripheral edema. No clubbing, no cyanosis. Peripheral pulses are intact. - Labs CBC & Chem 7: 01/19/17 06:55 01/19/17 06:55 Labs: Abnormal Lab Results - Last 24 Hours (Table) 01/18/17 01/18/17 01/18/17 Range/Units 06:20 11:57 16:47 WBC 13.2 H (3.8-10.6) k/uL RBC 3.39 L (3.80-5.40) m/uL Hgb (11.4-16.0) gm/dL MCV 114.0 H (80.0-100.0) fL MCHC 29.4 L (31.0-37.0) g/dL Neutrophils # 11.9 H (1.3-7.7) k/uL Lymphocytes # 0.6 L (1.0-4.8) k/uL Sodium (137-145) mmol/L Chloride (98-107) mmol/L BUN (7-17) mg/dL Glucose (74-99) mg/dL POC Glucose (mg/dL) 175 H 52 L (75-99) mg/dL 01/18/17 01/19/17 01/19/17 Range/Units 17:06 02:05 06:04 WBC (3.8-10.6) k/uL RBC (3.80-5.40) m/uL Hgb (11.4-16.0) gm/dL MCV (80.0-100.0) fL MCHC (31.0-37.0) g/dL Neutrophils # (1.3-7.7) k/uL Lymphocytes # (1.0-4.8) k/uL Sodium (137-145) mmol/L Chloride (98-107) mmol/L BUN (7-17) mg/dL Glucose (74-99) mg/dL POC Glucose (mg/dL) 71 L 120 H 116 H (75-99) mg/dL 01/19/17 01/19/17 01/19/17 Range/Units 06:55 06:55 10:11 WBC (3.8-10.6) k/uL RBC 3.25 L (3.80-5.40) m/uL Hgb 11.0 L (11.4-16.0) gm/dL MCV 110.3 H (80.0-100.0) fL MCHC 30.8 L (31.0-37.0) g/dL Neutrophils # 8.9 H (1.3-7.7) k/uL Lymphocytes # 0.7 L (1.0-4.8) k/uL Sodium 148 H (137-145) mmol/L Chloride 111 H (98-107) mmol/L BUN 40 H (7-17) mg/dL Glucose 111 H (74-99) mg/dL POC Glucose (mg/dL) 133 H (75-99) mg/dL Assessment and Plan Plan: Impression: #1 Acute exacerbation of chronic obstructive pulmonary disease. #2 Diabetes mellitus. #3 Hyperlipidemia. #4 Hypertension. #5 History of breast cancer. #6 Hypothyroidism. #7 Coronary artery disease with previous stent placement. #8 Dementia. #9 Extended care facility resident. #10 Poor overall functional performance based on the above-mentioned multiple comorbidities. Plan: The patient was seen and evaluated by Dr. Arambula. We'll continue with her current pulmonary medications. She is on empiric antibiotics in the form of Levaquin. She is also being diuresed with Lasix 20 mg IV twice a day. We will increase her activity as tolerated. We'll continue to follow and make further recommendations based on her clinical status.
[2017-01-19 11:54] LABS: Glucose,Whole Blood 123 mg/dL (75-99)
[2017-01-19 14:06] VITALS: BMI 25.5
--- NOTE | 2017-01-19 14:11 | P.PN ---
Subjective Principal diagnosis: Frequent falls This is a pleasant 86-year-old female who follows with Dr. Botello in the office. She has a history of coronary artery disease with prior LAD stenting in 2012, hypertension, diabetes, hyperlipidemia, breast cancer with prior left mastectomy, hypothyroidism, she was transferred here from [facility]. Most of the history was obtained from the chart although the patient can give somewhat of a history. Patient apparently has been having frequent falls at home. The patient apparently had been to the emergency room at [place] on a few separate occasions because of falls. Her Norvasc simvastatin and primidone were discontinued. Patient also had a recent UTI and had been on antibiotics. Apparently she is also not been eating or drinking much at home. Echocardiogram with Doppler study was performed here which revealed normal left ventricular systolic function. Blood pressure 124/60 with a heart rate of 90. Objective - Vital Signs Vital signs: Vital Signs Temp 97.6 F 01/19/17 08:00 Pulse 100 01/19/17 11:45 Resp 20 01/19/17 11:45 BP 124/66 01/19/17 11:45 Pulse Ox 95 01/19/17 11:45 Intake & Output 01/18/17 01/19/17 01/19/17 18:59 06:59 18:59 Intake Total 520 160 80 Balance 520 160 80 Weight 67.5 kg 67.5 kg Intake: IV 240 160 .9 @ 20 240 160 Intake, IV Titration 100 Amount Levofloxacin 500Mg-D5w 100 Pmx 500 mg In Dextrose/ Water 1 100ml.bag @ 100 mls/hr IVPB Q24HR [facility] Rx# :[id number] Oral 180 80 Other: Voiding Method Diaper Diaper Diaper Incontinent Incontinent Incontinent # Voids 1 - Exam PHYSICAL EXAMINATION: HEENT: Head is atraumatic, normocephalic. Pupils equal, round. Neck is supple. There is no elevated jugular venous pressure. Ecchymosis noted to the right upper facial and orbital area HEART EXAMINATION: Heart S1 and S2 systolic murmur is heard. CHEST EXAMINATION: Lungs are clear with diminished air entry to bilateral bases. ABDOMEN: Soft, nontender. Bowel sounds are heard. No organomegaly noted. EXTREMITIES: 2+ peripheral pulses with no evidence of peripheral edema and no calf tenderness noted. NEUROLOGIC patient is awake, alert and oriented -1. . - Labs CBC & Chem 7: 01/19/17 06:55 01/19/17 06:55 Labs: Abnormal Lab Results - Last 24 Hours (Table) 01/18/17 01/18/17 01/18/17 Range/Units 06:20 16:47 17:06 WBC 13.2 H (3.8-10.6) k/uL RBC 3.39 L (3.80-5.40) m/uL Hgb (11.4-16.0) gm/dL MCV 114.0 H (80.0-100.0) fL MCHC 29.4 L (31.0-37.0) g/dL Neutrophils # 11.9 H (1.3-7.7) k/uL Lymphocytes # 0.6 L (1.0-4.8) k/uL Sodium (137-145) mmol/L Chloride (98-107) mmol/L BUN (7-17) mg/dL Glucose (74-99) mg/dL POC Glucose (mg/dL) 52 L 71 L (75-99) mg/dL 01/19/17 01/19/17 01/19/17 Range/Units 02:05 06:04 06:55 WBC (3.8-10.6) k/uL RBC 3.25 L (3.80-5.40) m/uL Hgb 11.0 L (11.4-16.0) gm/dL MCV 110.3 H (80.0-100.0) fL MCHC 30.8 L (31.0-37.0) g/dL Neutrophils # 8.9 H (1.3-7.7) k/uL Lymphocytes # 0.7 L (1.0-4.8) k/uL Sodium (137-145) mmol/L Chloride (98-107) mmol/L BUN (7-17) mg/dL Glucose (74-99) mg/dL POC Glucose (mg/dL) 120 H 116 H (75-99) mg/dL 01/19/17 01/19/17 01/19/17 Range/Units 06:55 10:11 11:52 WBC (3.8-10.6) k/uL RBC (3.80-5.40) m/uL Hgb (11.4-16.0) gm/dL MCV (80.0-100.0) fL MCHC (31.0-37.0) g/dL Neutrophils # (1.3-7.7) k/uL Lymphocytes # (1.0-4.8) k/uL Sodium 148 H (137-145) mmol/L Chloride 111 H (98-107) mmol/L BUN 40 H (7-17) mg/dL Glucose 111 H (74-99) mg/dL POC Glucose (mg/dL) 133 H 123 H (75-99) mg/dL Assessment and Plan Plan: Assessment and plan #1 frequent falls #2 elevated BNP level, suggestive of possible congestive cardiac failure. Chest x-ray reveals bilateral infiltrates. A repeat chest x-ray was performed here which did not reveal any evidence of congestive cardiac failure.. #3 history of coronary artery disease with prior LAD stent in 2011 #4 hypertension #5 hyperlipidemia #6 diabetes #7 history of breast CA with left mastectomy Plan Echocardiogram with Doppler study revealed normal left ventricular systolic function. From cardiology's perspective, we'll follow this patient with you now on an as-needed basis only, please don't hesitate to call with any questions. DNP note has been reviewed, I agree with a documented findings and plan of care. Patient was seen and examined.
[2017-01-19] MEDS: FUROSEMIDE 20 MG TAB PO SCH (16:29)
[2017-01-19 17:08] LABS: Glucose,Whole Blood 122 mg/dL (75-99)
[2017-01-19 20:48] LABS: Glucose,Whole Blood 169 mg/dL (75-99)
[2017-01-20] MEDS: ACETAMINOPHEN TAB 500 MG TAB PO SCH ×3 (01:22→17:55)
[2017-01-20 07:11] LABS: Glucose,Whole Blood 115 mg/dL (75-99)
[2017-01-20] MEDS: IPRATROPIUM-ALBUTEROL 3 ML NEB INHALATION SCH ×4 (07:29→19:05)
[2017-01-20] MEDS: BUDESONIDE 1 MG/2 ML NEBU INHALATION SCH ×2 (07:29→19:04)
[2017-01-20] MEDS: FORMOTEROL FUMARATE 20 MCG/2 ML NEBU INHALATION SCH ×2 (07:29→19:05)
--- NOTE | 2017-01-20 08:13 | PN ---
DATE OF SERVICE: 01/19/2017 This 86-year-old woman who was admitted with shortness of breath continues to be confused at this time. Cardiology and Pulmonology are following the patient closely. The possibility of chronic obstructive pulmonary disease exacerbation and CHF exacerbation has been considered at this time. PAST MEDICAL HISTORY: Reviewed. Review of systems could not be taken. Current medications are reviewed and include: 1. Tylenol 500 q.8 p.r.n. 2. [place] 5 mg q.6 p.r.n. 3. DuoNeb q.i.d. and p.r.n. 4. Aspirin 81 mg daily. 5. Tenormin 25 mg daily. 6. Dulcolax. 7. Pulmicort 1 mg daily. 8. Aricept. 9. Flonase. 10. Perforomist. 11. Lasix 20 mg p.o. b.i.d. 12. Glucotrol. 13. Levaquin. 14. Risperdal. PHYSICAL EXAMINATION: Patient is confused, disoriented. Pulse 108, blood pressure 131/60, respirations 20, temperature 99.4, pulse ox 90% on room air. HEENT: Conjunctivae normal. Oral mucosa moist. NECK: No jugular venous distention. No carotid bruit. No lymph node enlargement. CARDIOVASCULAR: S1 and S2, muffled. RESPIRATORY: Breath sounds diminished at the bases. ABDOMEN: Soft, nontender. No mass palpable. LEGS: No edema, no swelling. NERVOUS SYSTEM: Diffusely weak. LABS INVESTIGATIONS: WBC 10.5, hemoglobin 11 and sodium 148. Accu-Cheks are noted, elevated. ASSESSMENT: 1. Shortness of breath multifactorial, possible congestive heart failure acute exacerbation with acute on chronic diastolic dysfunction, ejection fraction 50% to 60%. 2. Chronic obstructive pulmonary disease, acute exacerbation, with acute purulent tracheobronchitis. 3. Increased creatinine with possible chronic kidney disease, stage III. 4. Change in mental status, metabolic encephalopathy, acute on chronic. 5. Gait dysfunction. 6. Diabetes mellitus type 2. 7. Hypertension, essential. 8. Hyperlipidemia. 9. History of myocardial infarction. 10. History of pneumonia. 11. History of hypothyroidism. 12. History of breast cancer. 13. History of femoral fracture. 14. History of coronary artery disease and stent. 15. Remote history of nicotine dependence. 16. History of dementia. 17. NO CODE, NO CPR, NO VENT. RECOMMENDATIONS AND DISCUSSION: I recommend to continue the current medications, continue monitoring and symptomatic treatment. Otherwise, I would also recommend to continue bronchodilators, diuretics, empiric antibiotics. Patient is NO CODE. PT, OT evaluation possible ECF rehab. Guarded prognosis because of multiple complex medical issues. Further recommendations to follow. See orders for further details.
[2017-01-20] MEDS: INSULIN LISPRO (humaLOG) 300 UNIT/3 ML VIAL SQ SCH ×4 (08:42→21:50)
[2017-01-20] MEDS: DONEPEZIL 10 MG TAB PO SCH (08:43)
[2017-01-20] MEDS: ASPIRIN 81 MG CHEW PO SCH (08:43)
[2017-01-20] MEDS: ATENOLOL 25 MG TAB PO SCH (08:43)
[2017-01-20] MEDS: FUROSEMIDE 20 MG TAB PO SCH ×2 (08:44→18:22)
[2017-01-20] MEDS: LEVOFLOXACIN 250 MG TAB PO SCH (08:44)
[2017-01-20] MEDS: FLUTICASONE 50MCG/SPRAY NASAL 16GM EA NOSTRIL SCH (08:48)
[2017-01-20 10:56] LABS: Basophils % (A) 0 %; CH 33.3; CHCM 31.2; Eosinophils % (A) 0 %; HCT 38.5 % (34.0-46.0); HDW 2.37; HGB 12.6 gm/dL (11.4-16.0); Hypochromasia Slight; Luc # (Auto) 0.13; Luc % (Auto) 1; Lymphocytes # (A) 0.9 k/uL (1.0-4.8); Lymphocytes % (A) 9 %; MCH 35.1 pg (25.0-35.0); MCHC 32.7 g/dL (31.0-37.0); MCV 107.4 fL (80.0-100.0); Macrocytosis Moderate; Monocytes # (A) 0.3 k/uL (0-1.0); Monocytes % (A) 3 %; Neutrophils # (A) 8.5 k/uL (1.3-7.7); Neutrophils % (A) 86 %; RBC 3.59 m/uL (3.80-5.40); RDW 12.3 % (11.5-15.5); WBC 9.9 k/uL (3.8-10.6); WBC (Perox) 10.82
[2017-01-20 11:05] LABS: Anion Gap 17 mmol/L; Blood Urea Nitrogen 36 mg/dL (7-17); Calcium 9.1 mg/dL (8.4-10.2); Carbon Dioxide 24 mmol/L (22-30); Chloride 106 mmol/L (98-107); Glucose 161 mg/dL (74-99); Non-African American GFR(MDRD) >60 (>60 ml/min/1.73 sqM); Sodium 147 mmol/L (137-145)
[2017-01-20] MEDS: MULTIVITAMINS, THERA 1 EACH TAB PO SCH (12:06)
[2017-01-20] MEDS: THIAMINE 100 MG TAB PO SCH (12:06)
[2017-01-20] MEDS: FOLIC ACID 1 MG TAB PO SCH (12:07)
[2017-01-20 12:31] LABS: Glucose,Whole Blood 94 mg/dL (75-99)
--- NOTE | 2017-01-20 12:41 | PN ---
An 86-year-old female with a history of COPD exacerbation, diabetes, hyperlipidemia, hypertension, breast cancer, hypothyroidism, CAD with stent placement, dementia, and general medical debility. The patient continues to show improvement. She is refusing some of her treatments and medications. Very particular. Does not appear to be in any distress. Not coughing. No audible wheezing. No use of accessory muscles. Saturations are reasonable even on room air. Current vital signs show temperature 97.4, heart rate 98, respiratory rate 18, blood pressure 158/76, mean 103, room air saturation is 94%. Appears in no acute distress. Very frail appearing. HEENT examination throat is unremarkable. Mucous membranes are moist. No oral lesions. Neck is supple. Full range of motion. Neck veins are flat. No adenopathy or thyromegaly. Cardiovascular examination reveals regular rhythm and rate. S1, S2 normal. There is no murmur. Lungs reveal a few scattered rhonchi. No wheezes or crackles. Abdomen is soft. Bowel sounds are heard. There were no masses or tenderness. Extremities are intact. No cyanosis, clubbing, or edema. Skin without rash. Neurological examination is nonfocal. Labs are reviewed. White count 9.9, hemoglobin 12.6, hematocrit 38.5, platelet count normal. The rest of the labs look okay. No recent x-rays to report. ASSESSMENT: 1. Chronic obstructive pulmonary disease exacerbation. 2. Diabetes. 3. Hyperlipidemia. 4. Hypertension. 5. History of breast cancer. 6. Hypothyroidism. 7. Coronary artery disease with previous stent placement. 8. History of dementia. 9. General medical debility. PLAN: The patient is doing reasonably well from the pulmonary standpoint. She is on antibiotics in the form of Levaquin. She is getting diuretics in the form of Lasix. She is on all the usual medications. Is occasionally refusing treatments. Discharged any time the primary wants to at this time.
[2017-01-20 16:45] LABS: Glucose,Whole Blood 73 mg/dL (75-99)
--- NOTE | 2017-01-20 20:14 | PN ---
This 86-year-old woman who was admitted with shortness of breath which is multifactorial, possible CHF, COPD acute exacerbation, sensorium improved significantly. The patient is still confused. No chest pain or palpitations. On exam, pulse is 81, blood pressure 140/70, respiratory rate 18, temperature 98 degrees, pulse ox 92% on room air. HEENT: Conjunctivae normal. NECK: No jugular venous distention. CARDIOVASCULAR: S1, S2 muffled. RESPIRATORY: Breath sounds diminished at the bases. A few scattered rhonchi and crackles. ABDOMEN: Soft, nontender. LEGS: No edema. No swelling. CENTRAL NERVOUS SYSTEM: No focal deficits. LABS: WBC is 9.9. Sodium is 147. ASSESSMENT: 1. Shortness of breath multifactorial, possible congestive heart failure acute exacerbation. 2. Acute on chronic diastolic dysfunction, ejection fraction 50 to 60%. 3. Chronic obstructive pulmonary disease, acute exacerbation, with acute tracheobronchitis. 4. Increased creatinine with possible chronic kidney stage III. 5. Change in mental status, metabolic encephalopathy with acute on chronic. 6. Gait dysfunction. 7. Diabetes mellitus type 2. 8. Hypertension, essential. 9. Hyperlipidemia. 10. History of myocardial infarction. 11. History of pneumonia. 12. History of hypothyroidism. 13. History of breast cancer. 14. History of femoral fracture. 15. History of coronary artery disease and stent. 16. Remote history of nicotine dependence. 17. History of dementia. 18. NO CODE. NO CPR. NO VENTILATOR. RECOMMENDATIONS AND DISCUSSION: Recommend to continue with the current medications, continue symptomatic treatment. Cut down the dose of Lasix and monitor closely. is definitely improved but PT, OT evaluation possible ECF rehab. See orders for further details. Further recommendations to follow. We will also repeat chest x-ray in the morning to assess fluid balance status as well. Further recommendations to follow. MTDD
[2017-01-20 20:33] LABS: Glucose,Whole Blood 174 mg/dL (75-99)
[2017-01-21] MEDS: ACETAMINOPHEN TAB 500 MG TAB PO SCH ×3 (02:19→16:58)
[2017-01-21 07:14] LABS: Glucose,Whole Blood 87 mg/dL (75-99)
[2017-01-21] MEDS: FORMOTEROL FUMARATE 20 MCG/2 ML NEBU INHALATION SCH ×3 (07:40→20:21)
[2017-01-21] MEDS: IPRATROPIUM-ALBUTEROL 3 ML NEB INHALATION SCH ×5 (07:40→20:21)
[2017-01-21] MEDS: BUDESONIDE 1 MG/2 ML NEBU INHALATION SCH ×3 (07:40→20:21)
--- NOTE | 2017-01-21 08:08 | XR ---
EXAMINATION TYPE: XR chest 1V portable DATE OF EXAM: 01/21/2017 HISTORY: chf. REFERENCE: Previous study dated 01/18/2017. FINDINGS: The lungs are overinflated. There is minimal atelectatic change at the right lung base. Hea rt size upper limits of normal. Pleural spaces are clear. IMPRESSION: 1. COPD. 2. RIGHT BASILAR AIRSPACE DISEASE. 3. MILD CARDIOMEGALY.
[2017-01-21 09:36] LABS: Anion Gap 14 mmol/L; Blood Urea Nitrogen 33 mg/dL (7-17); Calcium 9.2 mg/dL (8.4-10.2); Carbon Dioxide 25 mmol/L (22-30); Chloride 104 mmol/L (98-107); Glucose 89 mg/dL (74-99); Non-African American GFR(MDRD) >60 (>60 ml/min/1.73 sqM); Potassium 3.8 mmol/L (3.5-5.1); Sodium 143 mmol/L (137-145)
[2017-01-21 09:45] LABS: Basophils % (A) 0 %; CH 33.5; CHCM 30.9; Eosinophils # (A) 0.1 k/uL (0-0.7); Eosinophils % (A) 1 %; HCT 41.3 % (34.0-46.0); HDW 2.28; HGB 12.7 gm/dL (11.4-16.0); Hypochromasia Slight; Luc # (Auto) 0.17; Luc % (Auto) 1; Lymphocytes # (A) 1.2 k/uL (1.0-4.8); Lymphocytes % (A) 10 %; MCH 33.3 pg (25.0-35.0); MCHC 30.7 g/dL (31.0-37.0); MCV 108.6 fL (80.0-100.0); Macrocytosis Moderate; Monocytes # (A) 0.4 k/uL (0-1.0); Monocytes % (A) 3 %; Neutrophils # (A) 9.9 k/uL (1.3-7.7); Neutrophils % (A) 84 %; RBC 3.81 m/uL (3.80-5.40); RDW 12.6 % (11.5-15.5); WBC 11.7 k/uL (3.8-10.6); WBC (Perox) 11.75
[2017-01-21] MEDS: INSULIN LISPRO (humaLOG) 300 UNIT/3 ML VIAL SQ SCH ×4 (09:55→21:36)
[2017-01-21] MEDS: ASPIRIN 81 MG CHEW PO SCH (10:05)
[2017-01-21] MEDS: DONEPEZIL 10 MG TAB PO SCH (10:06)
[2017-01-21] MEDS: FLUTICASONE 50MCG/SPRAY NASAL 16GM EA NOSTRIL SCH (10:06)
[2017-01-21] MEDS: ATENOLOL 25 MG TAB PO SCH (10:06)
[2017-01-21] MEDS: FUROSEMIDE 20 MG TAB PO SCH (10:07)
[2017-01-21] MEDS: LEVOFLOXACIN 250 MG TAB PO SCH (10:07)
[2017-01-21 11:52] LABS: Glucose,Whole Blood 59 mg/dL (75-99)
[2017-01-21 12:14] LABS: Glucose,Whole Blood 68 mg/dL (75-99)
[2017-01-21 12:28] LABS: Glucose,Whole Blood 98 mg/dL (75-99)
--- NOTE | 2017-01-21 12:57 | XR ---
EXAMINATION TYPE: XR chest 1V portable DATE OF EXAM: 01/21/2017 COMPARISON: Prior chest x-ray 01/21/2017 at earlier time HISTORY: Hypoxemia TECHNIQUE: Single frontal view of the chest is obtained. FINDINGS: Difficult to exclude airspace disease in the right lower lobe. Patient is rotated. Biapica l pleural thickening is noted. Heart size is stable. Postop change noted in the left axilla. There ar e overlying cardiac leads. Pulmonary vascularity and sheldon are stable. IMPRESSION: Correlate for right lower lobe pneumonia. COPD
[2017-01-21] MEDS: MULTIVITAMINS, THERA 1 EACH TAB PO SCH (13:37)
[2017-01-21] MEDS: THIAMINE 100 MG TAB PO SCH (13:37)
[2017-01-21] MEDS: FOLIC ACID 1 MG TAB PO SCH (13:37)
--- NOTE | 2017-01-21 13:41 | PN ---
An 86-year-old female admitted with a diagnosis of COPD exacerbation complicated by purulent tracheobronchitis and possible bronchopneumonia right lower lobe. The patient is improving. Less short of breath. Less chest congestion. Is somewhat noncompliant. Refuses updrafts from time to time. She also has a history of underlying diabetes, hyperlipidemia, hypertension, breast cancer, hypothyroidism, CAD with stent placement, dementia, and general medical debility. CURRENT VITAL SIGNS: Temperature 98.4, heart rate 81, respiratory rate 16, blood pressure 140/69, mean 92, room air saturation of 89%. She does refuse using oxygen from time to time. Appears in no acute distress. HEENT examination is grossly unremarkable. Mucous membranes are moist. No oral lesions. Neck is supple. Full range of motion. No adenopathy or thyromegaly. Neck veins are flat. Cardiovascular examination reveals regular rhythm and rate. S1, S2 normal. No S3, S4. No distinct murmur noted. Lungs reveal a few scattered rhonchi. Breath sounds are diminished. No crackles. A pretty benign appearing lung examination. Abdomen is soft. Bowel sounds are heard. No masses or tenderness. Extremities are intact. No cyanosis, clubbing, or edema. Skin without rash. No lesions. Neurological examination is difficult to perform. Chest x-ray shows changes of COPD and some right basilar atelectasis or air space disease. Labs are reviewed. White count 11.7, hemoglobin 12.7, hematocrit 41.3, platelet count 427,000. Sodium 143, potassium 3.8, chloride 104, CO2 of 25, BUN and creatinine were 33 and 0.8 suggesting prerenal azotemia. Microbiology is all negative or pending. ASSESSMENT: 1. Chronic obstructive pulmonary disease exacerbation complicated by purulent tracheobronchitis/right basilar air space disease. 2. Diabetes mellitus. 3. Hyperlipidemia. 4. Hypertension. 5. History of breast cancer. 6. Hypothyroidism. 7. Coronary artery disease with previous stent placement. 8. History of dementia. 9. General medical debility. PLAN: The patient seemed to be doing reasonably well. Sort of fussy gal who does not always put her oxygen on or does not always accept the breathing treatment. Despite that, she continues to improve. We will continue to follow. Discharge instructions are underway. We will see when and where she goes.
[2017-01-21 16:58] LABS: Glucose,Whole Blood 244 mg/dL (75-99)
[2017-01-21] MEDS: PIPERACILLIN-TAZOBACTAM 3.375 GM in DEXTROSE/WATER 1 50ML.BAG IVPB SCH (19:49)
[2017-01-21 21:34] LABS: Glucose,Whole Blood 257 mg/dL (75-99)
[2017-01-22] MEDS: PIPERACILLIN-TAZOBACTAM 3.375 GM in DEXTROSE/WATER 1 50ML.BAG IVPB SCH ×4 (01:33→23:20)
--- NOTE | 2017-01-22 07:14 | PN ---
DATE OF SERVICE: 01/21/2017 This 86-year-old woman with a past medical history of multiple medical problems admitted with change in mental status as well as suspected pneumonia. The patient is still confused. The patient is on broad-spectrum IV antibiotics at this time. The patient is being closely monitored. Patient has probably right lower lobe pneumonia. PAST MEDICAL HISTORY: Reviewed. REVIEW OF SYSTEMS: CARDIOVASCULAR: No angina or palpitations. RESPIRATORY: No cough. GI: As mentioned earlier. : No dysuria. NERVOUS SYSTEM: As mentioned earlier. Current medications are reviewed and include: 1. Tylenol. 2. [place] 5 mg 1 p.o. daily p.r.n. 3. Aspirin. 4. Tenormin. 5. Dulcolax. 6. Pulmicort. 7. Aricept. 8. Flonase. 9. Folic acid. 10. Perforomist. 11. Lasix. 12. Glucotrol. 13. Humalog. 14. Levaquin. 15. Multivitamin. 16. Risperdal. 17. Vitamin B1. PHYSICAL EXAMINATION: The patient is conscious, confused. Pulse 95, blood pressure 111/52, respirations 16, temperature 97.6, pulse ox 93% on 2 liters. HEENT: Conjunctivae normal. NECK: No jugular venous distention. CARDIOVASCULAR: S1 and S2. RESPIRATORY: Breath sounds diminished at the bases. A few scattered rhonchi and crackles. ABDOMEN: Soft, nontender. No mass palpable. LEGS: No edema, no swelling. NERVOUS SYSTEM: Diffusely weak. LABS: WBC 7.7, MCV 108.6. Accu-Cheks are noted. ASSESSMENT: 1. Shortness of breath possibly chronic obstructive pulmonary disease acute exacerbation with acute right lower lobe pneumonia, possibly aspiration with sepsis. 2. Change in mental status, metabolic encephalopathy, acute on chronic. 3. Possible congestive heart failure acute exacerbation with acute on chronic diastolic dysfunction, ejection fraction 50 to 60%. 4. Increased creatinine with possible chronic kidney stage III. 5. Gait dysfunction. 6. Diabetes mellitus type 2. 7. Hypoglycemia. 8. Hypertension, essential. 9. Hyperlipidemia. 10. History of myocardial infarction. 11. History of pneumonia. 12. History of hypothyroidism. 13. History breast cancer. 14. History of femoral fracture. 15. History of coronary artery disease, stent. 16. Remote history of nicotine dependence. 17. History of dementia. 18. No code, no CPR, no ventilator. RECOMMENDATIONS AND DISCUSSION: I recommend to continue the current medications, continue monitoring and symptomatic treatment. I will add Zosyn to the current regimen. The patient is on Levaquin. White count is elevated. I would also recommend speech pathology evaluation for small bowel with swallow evaluation under fluoroscopy. Otherwise, hold Lantus and just continue the coverage at this time. Repeat labs. PT, OT evaluation, possible ECF rehab. Guarded prognosis because of multiple complex medical issues. Further recommendations to follow.
[2017-01-22 07:27] LABS: Glucose,Whole Blood 98 mg/dL (75-99)
[2017-01-22] MEDS: INSULIN LISPRO (humaLOG) 300 UNIT/3 ML VIAL SQ SCH ×4 (07:45→21:13)
[2017-01-22 07:52] LABS: Basophils % (A) 0 %; CH 33.4; CHCM 32.2; Eosinophils # (A) 0.1 k/uL (0-0.7); Eosinophils % (A) 1 %; HCT 36.4 % (34.0-46.0); HDW 2.31; HGB 12.3 gm/dL (11.4-16.0); Luc # (Auto) 0.19; Luc % (Auto) 2; Lymphocytes # (A) 1.4 k/uL (1.0-4.8); Lymphocytes % (A) 13 %; MCH 35.2 pg (25.0-35.0); MCHC 33.8 g/dL (31.0-37.0); MCV 104.1 fL (80.0-100.0); Macrocytosis Slight; Mean Platelet Volume 7.7; Monocytes # (A) 0.4 k/uL (0-1.0); Monocytes % (A) 3 %; Neutrophils # (A) 8.8 k/uL (1.3-7.7); Neutrophils % (A) 81 %; RDW 12.4 % (11.5-15.5); WBC 10.9 k/uL (3.8-10.6); WBC (Perox) 11.71
[2017-01-22] MEDS: IPRATROPIUM-ALBUTEROL 3 ML NEB INHALATION SCH ×5 (08:00→20:12)
[2017-01-22] MEDS: BUDESONIDE 1 MG/2 ML NEBU INHALATION SCH ×2 (08:00→20:12)
[2017-01-22] MEDS: FORMOTEROL FUMARATE 20 MCG/2 ML NEBU INHALATION SCH ×2 (08:01→20:12)
[2017-01-22 08:05] LABS: Anion Gap 11 mmol/L; Blood Urea Nitrogen 36 mg/dL (7-17); Calcium 8.4 mg/dL (8.4-10.2); Carbon Dioxide 28 mmol/L (22-30); Chloride 103 mmol/L (98-107); Glucose 102 mg/dL (74-99); Non-African American GFR(MDRD) 50 (>60 ml/min/1.73 sqM); Sodium 142 mmol/L (137-145)
[2017-01-22] MEDS: FUROSEMIDE 20 MG TAB PO SCH (08:06)
[2017-01-22] MEDS: ASPIRIN 81 MG CHEW PO SCH (08:07)
[2017-01-22] MEDS: ATENOLOL 25 MG TAB PO SCH (08:07)
[2017-01-22] MEDS: ACETAMINOPHEN TAB 500 MG TAB PO SCH ×4 (08:07→23:22)
[2017-01-22] MEDS: DONEPEZIL 10 MG TAB PO SCH (08:07)
[2017-01-22] MEDS: LEVOFLOXACIN 250 MG TAB PO SCH (08:07)
[2017-01-22] MEDS: FLUTICASONE 50MCG/SPRAY NASAL 16GM EA NOSTRIL SCH (08:45)
[2017-01-22 11:55] LABS: Glucose,Whole Blood 114 mg/dL (75-99)
[2017-01-22] MEDS: MULTIVITAMINS, THERA 1 EACH TAB PO SCH (12:26)
[2017-01-22] MEDS: FOLIC ACID 1 MG TAB PO SCH (12:26)
[2017-01-22] MEDS: THIAMINE 100 MG TAB PO SCH (12:26)
--- NOTE | 2017-01-22 13:40 | FL ---
MODIFIED SWALLOW / DEGLUTITION STUDY EXAMINATION TYPE: FL barium swallow w video DATE OF EXAM: 01/22/2017 CLINICAL HISTORY: 86-year-old female with shortness of breath, possible aspiration. TECHNIQUE: Deglutition study is performed utilizing thin liquid barium, honey and nectar thick liqui d barium, barium thick applesauce, and barium coated cracker. COMPARISON: None. FINDINGS: The oral and pharyngeal phases show satisfactory initiation and propagation with all modalities teste d. Normal mastication is seen with solid modalities tested. There is no evidence of penetration or aspiration with any modality tested. Mild vallecular residuals with solid consistencies clear after a dditional swallow of thin liquid. IMPRESSION: Functional swallow. Please refer to speech therapist notes for further details if necessary.
--- NOTE | 2017-01-22 16:43 | P.PN ---
Subjective Date of service 01/22/2017. Progress note being dictated for Dr. Lee. Interval history: This a 86-year-old female admitted with multiple medical issues including shortness of breath, possibly COPD exacerbation with acute right lower lobe pneumonia, suspecting aspiration with sepsis, confusion, change in mental status, acute on chronic renal failure. Maintained on broad- spectrum IV antibiotics at this time .Just returning from modified barium swallow, reporting functional swallow. Diet recommendations noted per speech therapy. Remains pleasantly confused. Objective - Vital Signs Vital signs: Vital Signs Temp 96.0 F L 01/22/17 15:00 Pulse 96 01/22/17 16:21 Resp 16 01/22/17 15:00 BP 114/56 01/22/17 15:00 Pulse Ox 95 01/22/17 15:00 Intake & Output 01/21/17 01/22/17 01/22/17 18:59 06:59 18:59 Weight 68 kg Other: Voiding Method Diaper Diaper Incontinent Incontinent Incontinent # Voids 3 1 2 # Bowel Movements 1 - Exam PHYSICAL EXAM: VITAL SIGNS: [As above] GENERAL: [Alert, pleasantly confused] HEENT: [Pupils equal conjunctiva normal.] NECK: [Supple, no JVD] RESPIRATORY EFFORT:[ Normal] LUNGS: [Bilateral bases diminished, scattered rhonchi, occasional scattered crackles, no wheezing] CARDIOVASCULAR[ regular S1 and S2, no murmurs rubs or gallops, no edema] GI: [Abdomen soft, nontender, positive bowel sounds.] PSYCH: [Alert and oriented -3, mood and affect normal.] NEURO: Generalized diffuse weakness - Labs CBC & Chem 7: 01/22/17 07:00 01/22/17 07:00 Labs: Abnormal Lab Results - Last 24 Hours (Table) 01/21/17 01/21/17 01/22/17 Range/Units 16:57 21:32 07:00 WBC 10.9 H (3.8-10.6) k/uL RBC 3.50 L (3.80-5.40) m/uL MCV 104.1 H (80.0-100.0) fL MCH 35.2 H (25.0-35.0) pg Neutrophils # 8.8 H (1.3-7.7) k/uL BUN (7-17) mg/dL Glucose (74-99) mg/dL POC Glucose (mg/dL) 244 H 257 H (75-99) mg/dL 01/22/17 01/22/17 Range/Units 07:00 11:52 WBC (3.8-10.6) k/uL RBC (3.80-5.40) m/uL MCV (80.0-100.0) fL MCH (25.0-35.0) pg Neutrophils # (1.3-7.7) k/uL BUN 36 H (7-17) mg/dL Glucose 102 H (74-99) mg/dL POC Glucose (mg/dL) 114 H (75-99) mg/dL Assessment and Plan Plan: 1. Shortness of breath, possibly COPD acute exacerbation of with acute right lower lobe pneumonia, suspect aspiration with sepsis. 2. [ Change in mental status, acute on chronic metabolic encephalopathy]. 3. [ Possible acute on chronic CHF exacerbation, diastolic dysfunction, EF 50-60 %]. 4. Acute with possible chronic renal failure, stage III[ 5. [ Gait dysfunction]. 6. [ Diabetes mellitus type 2]. 7. [ Hypoglycemia]. 8. Essential hypertension 9. Hyperlipidemia 10. CAD, history of MT, history of stent 11. Hypothyroidism 12. History of breast CA 13. History of femoral fracture 14. Remote history of nicotine dependence 15. History of premature 16. No Code, No CPR, No Ventilator. Plan: Continue on current medication regime ,monitoring and symptomatic treatment. Currently on Levaquin, Zosyn added to antibiotic regime. Speech therapy recommendations for diet noted including regular thin liquids. [place] reflux precautions. Discharge planning in progress for tomorrow for return to [facility] rehab. Further recommendations to follow. The impression and plan of care has been dictated as directed. : I performed a H&P examination of this patient and discussed the same with the dictator. I agree with the dictator's note. Any additional findings/opinions/ etc. will be noted.
[2017-01-22 17:32] LABS: Glucose,Whole Blood 123 mg/dL (75-99)
--- NOTE | 2017-01-22 18:06 | P.PN ---
Subjective This is a very pleasant 86-year-old female patient who resides at [facility] and follows with Dr. English mccormack with previous stent placement s her primary care physician. She has history of diabetes mellitus, hypertension, coronary disease, thyroid cancer, breast cancer, dementia. She does have a significant smoking history and chronic obstructive pulmonary disease. She was transferred from there to [facility] with complaints of increasing shortness of breath. A chest x-ray had revealed evidence of congestive heart failure with pleural effusion and she was initiated on BiPAP. From there she was transferred here to the selective care unit. She is seen today in consultation. She is somewhat of a poor historian. She is slightly confused and agitated currently. She does admit to breathing easier today as compared to yesterday. She has a dry nonproductive cough. She is requiring 5 L/m per nasal cannula to maintain O2 saturations in the 90s. Currently afebrile. Slightly tachycardic. Her chest x-ray does reveal some pleural thickening on the right with some diffuse increased interstitial markings however this is unchanged as compared to previous in October 2016. The patient is seen again today in follow-up 01/19/2017 on the selective care unit. She is resting more comfortably in bed. A little less agitated than yesterday. She is however refusing her breathing treatments. She states she is breathing better today as compared to yesterday. Her oxygen requirements have improved as well. She is maintaining O2 saturations in the mid 90s on 2 L/ m per nasal cannula. She is afebrile. No leukocytosis. She remains on IV Lasix. Current creatinine 1.00. On 01/22/2017 the patient is being seen in follow-up. The patient is stable. She is not having any significant issues or complaints. She is less bronchospastic and wheezy. No change in mental status. She is weak and obviously is having difficulty with mobility and ambulation and were looking for placement for her and her . The patient is on a combination of Zosyn and Levaquin. The patient is also on Perforomist and Pulmicort neb last treatment twice a day and/or numerous treatments around the clock. The patient passes swallow evaluation. The most recent chest x-ray from yesterday showed possible right lower lobe pulmonary infiltrates/airspace disease. Objective - Vital Signs Vital signs: Vital Signs Temp 96.0 F L 01/22/17 15:00 Pulse 92 01/22/17 16:37 Resp 16 01/22/17 15:00 BP 114/56 01/22/17 15:00 Pulse Ox 95 01/22/17 15:00 Intake & Output 01/21/17 01/22/17 01/22/17 18:59 06:59 18:59 Weight 68 kg Other: Voiding Method Diaper Diaper Incontinent Incontinent Incontinent # Voids 3 1 2 # Bowel Movements 1 - Exam GENERAL EXAM: Frail, cachectic. Alert, oriented times one, comfortable in no apparent distress. HEAD: Normocephalic. EYES: Normal reaction of pupils, equal size. NOSE: Clear with pink turbinates. THROAT: No erythema or exudates. NECK: No masses, no JVD. CHEST: No chest wall deformity. LUNGS: Equal air entry with few scattered rhonchi. Diminished. Few scattered expiratory wheezes throughout the lung giles bilaterally. CVS: S1 and S2 normal with no audible murmurs, regular rhythm. ABDOMEN: No hepatosplenomegaly, normal bowel sounds, no guarding or rigidity. Extremities: There is no significant peripheral edema. No clubbing, no cyanosis. Peripheral pulses are intact. - Labs CBC & Chem 7: 01/22/17 07:00 01/22/17 07:00 Labs: Abnormal Lab Results - Last 24 Hours (Table) 01/21/17 01/22/17 01/22/17 Range/Units 21:32 07:00 07:00 WBC 10.9 H (3.8-10.6) k/uL RBC 3.50 L (3.80-5.40) m/uL MCV 104.1 H (80.0-100.0) fL MCH 35.2 H (25.0-35.0) pg Neutrophils # 8.8 H (1.3-7.7) k/uL BUN 36 H (7-17) mg/dL Glucose 102 H (74-99) mg/dL POC Glucose (mg/dL) 257 H (75-99) mg/dL 01/22/17 01/22/17 Range/Units 11:52 17:28 WBC (3.8-10.6) k/uL RBC (3.80-5.40) m/uL MCV (80.0-100.0) fL MCH (25.0-35.0) pg Neutrophils # (1.3-7.7) k/uL BUN (7-17) mg/dL Glucose (74-99) mg/dL POC Glucose (mg/dL) 114 H 123 H (75-99) mg/dL Assessment and Plan Plan: #1 Acute exacerbation of chronic obstructive pulmonary disease, with a limited right lower lobe pneumonia which is improving. Patient is on a combination of Zosyn and Levaquin. #2 Diabetes mellitus. #3 Hyperlipidemia. #4 Hypertension. #5 History of breast cancer. #6 Hypothyroidism. #7 Coronary artery disease with previous stent placement. #8 Dementia. #9 Extended care facility resident. #10 Poor overall functional performance based on the above-mentioned multiple comorbidities. Plan Continue same treatment. Aspiration precautions. The patient passed a swallow evaluation. Discharge planning is in progress for possible tomorrow [facility].
--- NOTE | 2017-01-22 18:58 | PN ---
DATE OF SERVICE: 01/22/2017 This 86 -year-old woman was admitted with pneumonia, sepsis and other multiple medical problems also had a swallow evaluation. No evidence of penetration was noted. Seen and evaluated the patient along with nurse practitioner. Please refer to the nurse practitioner notes and impression documented as a scribe for further information. Once the patient is stabilized, ECF rehab. Guarded prognosis. Further recommendations to follow.
[2017-01-22 20:34] LABS: Glucose,Whole Blood 167 mg/dL (75-99)
[2017-01-23] MEDS: BUDESONIDE 1 MG/2 ML NEBU INHALATION SCH (06:56)
[2017-01-23] MEDS: FORMOTEROL FUMARATE 20 MCG/2 ML NEBU INHALATION SCH (06:56)
[2017-01-23] MEDS: IPRATROPIUM-ALBUTEROL 3 ML NEB INHALATION SCH ×2 (06:56→10:59)
[2017-01-23 07:39] LABS: Glucose,Whole Blood 90 mg/dL (75-99)
[2017-01-23] MEDS: INSULIN LISPRO (humaLOG) 300 UNIT/3 ML VIAL SQ SCH ×2 (07:44→12:29)
[2017-01-23] MEDS: PIPERACILLIN-TAZOBACTAM 3.375 GM in DEXTROSE/WATER 1 50ML.BAG IVPB SCH (07:51)
[2017-01-23] MEDS: ASPIRIN 81 MG CHEW PO SCH (07:52)
[2017-01-23] MEDS: LEVOFLOXACIN 250 MG TAB PO SCH (07:52)
[2017-01-23] MEDS: ATENOLOL 25 MG TAB PO SCH (07:52)
[2017-01-23] MEDS: DONEPEZIL 10 MG TAB PO SCH (07:52)
[2017-01-23] MEDS: FUROSEMIDE 20 MG TAB PO SCH (07:52)
[2017-01-23] MEDS: FLUTICASONE 50MCG/SPRAY NASAL 16GM EA NOSTRIL SCH (07:53)
[2017-01-23] MEDS: ACETAMINOPHEN TAB 500 MG TAB PO SCH (08:03)
[2017-01-23 08:07] VITALS: BP 123/63; RESP 16; TEMP 97.8
[2017-01-23 08:10] LABS: Basophils % (A) 0 %; CH 32.9; CHCM 31.4; Eosinophils # (A) 0.1 k/uL (0-0.7); Eosinophils % (A) 2 %; HCT 36.9 % (34.0-46.0); HGB 12.3 gm/dL (11.4-16.0); Hypochromasia Slight; Luc # (Auto) 0.17; Luc % (Auto) 2; Lymphocytes # (A) 1.6 k/uL (1.0-4.8); Lymphocytes % (A) 20 %; MCH 35.1 pg (25.0-35.0); MCHC 33.4 g/dL (31.0-37.0); MCV 104.9 fL (80.0-100.0); Macrocytosis Slight; Mean Platelet Volume 7.4; Monocytes # (A) 0.3 k/uL (0-1.0); Monocytes % (A) 3 %; Neutrophils # (A) 5.7 k/uL (1.3-7.7); Neutrophils % (A) 73 %; RBC 3.52 m/uL (3.80-5.40); RDW 12.4 % (11.5-15.5); WBC 7.8 k/uL (3.8-10.6); WBC (Perox) 7.82
[2017-01-23 08:37] LABS: Calcium 8.5 mg/dL (8.4-10.2); Potassium 3.9 mmol/L (3.5-5.1)
[2017-01-23 11:10] VITALS: PULSE 80
--- NOTE | 2017-01-23 12:11 | P.PN ---
Subjective This is a very pleasant 86-year-old female patient who resides at [facility] and follows with Dr. English mccormack with previous stent placement s her primary care physician. She has history of diabetes mellitus, hypertension, coronary disease, thyroid cancer, breast cancer, dementia. She does have a significant smoking history and chronic obstructive pulmonary disease. She was transferred from there to [facility] with complaints of increasing shortness of breath. A chest x-ray had revealed evidence of congestive heart failure with pleural effusion and she was initiated on BiPAP. From there she was transferred here to the selective care unit. She is seen today in consultation. She is somewhat of a poor historian. She is slightly confused and agitated currently. She does admit to breathing easier today as compared to yesterday. She has a dry nonproductive cough. She is requiring 5 L/m per nasal cannula to maintain O2 saturations in the 90s. Currently afebrile. Slightly tachycardic. Her chest x-ray does reveal some pleural thickening on the right with some diffuse increased interstitial markings however this is unchanged as compared to previous in October 2016. The patient is seen again today in follow-up 01/19/2017 on the selective care unit. She is resting more comfortably in bed. A little less agitated than yesterday. She is however refusing her breathing treatments. She states she is breathing better today as compared to yesterday. Her oxygen requirements have improved as well. She is maintaining O2 saturations in the mid 90s on 2 L/ m per nasal cannula. She is afebrile. No leukocytosis. She remains on IV Lasix. Current creatinine 1.00. On 01/22/2017 the patient is being seen in follow-up. The patient is stable. She is not having any significant issues or complaints. She is less bronchospastic and wheezy. No change in mental status. She is weak and obviously is having difficulty with mobility and ambulation and were looking for placement for her and her . The patient is on a combination of Zosyn and Levaquin. The patient is also on Perforomist and Pulmicort neb last treatment twice a day and/or numerous treatments around the clock. The patient passes swallow evaluation. The most recent chest x-ray from yesterday showed possible right lower lobe pulmonary infiltrates/airspace disease.' On 01/23/2017 the patient is not having any major respiratory difficulties. She is calm and comfortable. No chest pain. No shortness of breath. No chest tightness or wheezing. She is resting comfortably in bed. Discharge planning is in progress. Objective - Vital Signs Vital signs: Vital Signs Temp 97.8 F 01/23/17 07:00 Pulse 80 01/23/17 11:10 Resp 16 01/23/17 07:00 BP 123/63 01/23/17 07:00 Pulse Ox 95 01/23/17 07:00 Intake & Output 01/22/17 01/23/17 01/23/17 18:59 06:59 18:59 Weight 66 kg Other: Voiding Method Incontinent Incontinent Incontinent # Voids 2 3 - Exam GENERAL EXAM: Frail, cachectic. Alert, oriented times one, comfortable in no apparent distress. HEAD: Normocephalic. EYES: Normal reaction of pupils, equal size. NOSE: Clear with pink turbinates. THROAT: No erythema or exudates. NECK: No masses, no JVD. CHEST: No chest wall deformity. LUNGS: Equal air entry with few scattered rhonchi. Diminished. Few scattered expiratory wheezes throughout the lung giles bilaterally. CVS: S1 and S2 normal with no audible murmurs, regular rhythm. ABDOMEN: No hepatosplenomegaly, normal bowel sounds, no guarding or rigidity. Extremities: There is no significant peripheral edema. No clubbing, no cyanosis. Peripheral pulses are intact. - Labs CBC & Chem 7: 01/23/17 07:35 01/23/17 07:35 Labs: Abnormal Lab Results - Last 24 Hours (Table) 01/22/17 01/22/17 01/23/17 Range/Units 17:28 20:33 07:35 RBC 3.52 L (3.80-5.40) m/uL MCV 104.9 H (80.0-100.0) fL MCH 35.1 H (25.0-35.0) pg BUN (7-17) mg/dL Creatinine (0.52-1.04) mg/dL POC Glucose (mg/dL) 123 H 167 H (75-99) mg/dL 01/23/17 Range/Units 07:35 RBC (3.80-5.40) m/uL MCV (80.0-100.0) fL MCH (25.0-35.0) pg BUN 35 H (7-17) mg/dL Creatinine 1.11 H (0.52-1.04) mg/dL POC Glucose (mg/dL) (75-99) mg/dL Assessment and Plan Plan: #1 Acute exacerbation of chronic obstructive pulmonary disease, with a limited right lower lobe pneumonia which is improving. Patient is on a combination of Zosyn and Levaquin. #2 Diabetes mellitus. #3 Hyperlipidemia. #4 Hypertension. #5 History of breast cancer. #6 Hypothyroidism. #7 Coronary artery disease with previous stent placement. #8 Dementia. #9 Extended care facility resident. #10 Poor overall functional performance based on the above-mentioned multiple comorbidities. Plan Continue same treatment. Aspiration precautions. The patient passed a swallow evaluation. Discharge planning is in progress for possible tomorrow to return back to [facility]. On today's evaluation the patient's condition is stable and there has been no major interval change in her condition compared to yesterday. Would suggest simply find antibiotics to oral Levaquin at time of discharge to complete a total of 7-10 day course.
[2017-01-23] MEDS: MULTIVITAMINS, THERA 1 EACH TAB PO SCH (12:28)
[2017-01-23] MEDS: FOLIC ACID 1 MG TAB PO SCH (12:28)
[2017-01-23] MEDS: THIAMINE 100 MG TAB PO SCH (12:28)
--- NOTE | 2017-01-24 13:08 | DS ---
DATE OF SERVICE: 01/23/2017 FINAL DIAGNOSIS: 1. Shortness of breath, possibly chronic obstructive pulmonary disease acute exacerbation with acute right lobe pneumonia, possibly aspiration with sepsis, present on admission. 2. Change in mental status with metabolic encephalopathy, acute on chronic. 3. Possible acute on chronic congestive heart failure acute exacerbation with diastolic dysfunction, ejection fraction 50% to 60%. 4. Acute kidney failure, possibly acute prerenal factors and acute tubular necrosis on top of chronic kidney disease stage III. 5. Gait dysfunction. 6. Diabetes mellitus type 2. 7. Hypoglycemia. 8. Essential hypertension. 9. Hyperlipidemia. 10. Coronary artery disease. 11. History of myocardial infarction with stent. 12. Hypothyroidism. 13. History of breast cancer. 14. History of femoral fracture. 15. Remote history of nicotine dependence. 16. NO CODE, NO CARDIOPULMONARY RESUSCITATION, NO VENTILATOR. DISCHARGE DISPOSITION: Patient will be discharged in stable condition with guarded prognosis to [facility]. Total time taken 35 minutes. HISTORY OF PRESENT ILLNESS: This is an 86-year-old woman with a past medical history of multiple medical problems, admitted with multiple medical problems including shortness of breath, COPD, CHF acute exacerbation as well as change in mental status and aspiration pneumonia and multiple other medical issues. Patient treated with antibiotics and bronchodilators, improved significantly. Sensorium is also improved. On exam, vitals are stable. Patient is still confused. CARDIOVASCULAR SYSTEM: S1, S2. RESPIRATORY: A few scattered rhonchi. ABDOMEN: Soft. NERVOUS SYSTEM: Diffusely weak. DISCHARGE ADVICE: 1. Diet is cardiac. 2. Activity limited until followup. 3. Follow up with Dr. Arrieta in 2 to 3 days. 4. CBC, BMP. 5. Patient to be transferred to [facility]. The medications are as follows: 1. Tylenol 500 mg q.8 p.r.n. 2. Ventolin HFA 1 puff q.i.d. p.r.n. 3. Xanax 0.5 b.i.d. p.r.n. 4. Augmentin 875 mg p.o. b.i.d. for 5 days. 5. Ecotrin 81 mg daily. 6. Tenormin 25 mg daily. 7. Bisacodyl 10 mg p.o. daily. 8. Pulmicort 1 mg b.i.d. 9. Aricept 10 mg daily. 10. Lexapro 20 mg q.h.s. 11. Fluticasone 1 spray daily. 12. Folic acid 1 mg p.o. daily. 13. Lasix 20 mg p.o. daily. 14. Glipizide 2.5 mg daily. 15. [place] 5 mg q.6 p.r.n., use sparingly. 16. Humalog scale. 17. Albuterol/Atrovent updrafts q.i.d. and p.r.n. 18. Multivitamin 1 p.o. daily. 19. Risperdal 2.5 mg q.h.s. p.r.n. for agitation. 20. Thiamine 100 mg p.o. daily. MTDD
== END 2017-01-23 12:32 | DRG 871 ==
LOC: 6SEL 19:42 → 4MS4W 01-19 17:29
PROVIDERS: ADMIT Hospitalist; ATTEND Hospitalist
DX: A41.9 Sepsis, unspecified organism (principal); G93.41 Metabolic encephalopathy; J69.0 Pneumonitis due to inhalation of food and vomit; I50.33 Acute on chronic diastolic (congestive) heart failure; N17.9 Acute kidney failure, unspecified; J44.1 Chronic obstructive pulmonary disease with (acute) exacerbation; I13.0 Hypertensive heart and chronic kidney disease with heart failure and stage 1 through stage 4 chronic kidney disease, or unspecified chronic kidney disease; E11.649 Type 2 diabetes mellitus with hypoglycemia without coma; F03.90 Unspecified dementia, unspecified severity, without behavioral disturbance, psychotic disturbance, mood disturbance, and anxiety; E03.9 Hypothyroidism, unspecified; E78.5 Hyperlipidemia, unspecified; I25.10 Atherosclerotic heart disease of native coronary artery without angina pectoris; I25.2 Old myocardial infarction; R26.9 Unspecified abnormalities of gait and mobility; E11.22 Type 2 diabetes mellitus with diabetic chronic kidney disease; N18.3 Chronic kidney disease, stage 3 (moderate); R32 Unspecified urinary incontinence; R29.6 Repeated falls; Z79.82 Long term (current) use of aspirin; Z79.84 Long term (current) use of oral hypoglycemic drugs; Z79.899 Other long term (current) drug therapy; Z85.3 Personal history of malignant neoplasm of breast; Z85.850 Personal history of malignant neoplasm of thyroid; Z87.01 Personal history of pneumonia (recurrent); Z87.891 Personal history of nicotine dependence; Z91.19 Patient's noncompliance with other medical treatment and regimen; Z95.5 Presence of coronary angioplasty implant and graft; Z66 Do not resuscitate; Z82.49 Family history of ischemic heart disease and other diseases of the circulatory system
CPT/HCPCS: 71010; 74230; 80048; 80053; 83036; 83880; 85025; 93306; 94640; 94760

== ENCOUNTER 2018-12-09 08:27 | Inpatient (IN) | payer MEDICARE, OTHER ==
[2018-12-09] MEDS ORDERED: IPRATROPIUM-ALBUTEROL 3 ML NEB INHALATION PRN (13:09)
[2018-12-09] MEDS ORDERED: BISACODYL 5 MG TABLET.DR PO PRN (13:13)
[2018-12-09] MEDS ORDERED: guaiFENesin SYRUP 100MG/5ML 200 MG/10 ML CUP PO PRN (13:13)
[2018-12-09] MEDS ORDERED: MAGNESIUM HYDROXIDE 2,400 MG/10 ML CUP PO PRN (13:13)
--- NOTE | 2018-12-09 13:25 | P.HPIM ---
History of Present Illness patient is a pleasant 88-year-old female was transferred here from [facility] because of the hip fracture patient had a mechanical fall while at trying to get out of the bed and had a left intertrochanteric femoral fracture along with a pelvic fracture in theleft side. Patient is obviously complaining of pain in that area. Patient does have some dementia appears to be moderate. Patient appears to have vascular dementia. Patient was on hospice care for last 2 years. Although she doesn't take any in the opiates for pain. Patient is able to provide good history to me. Patient continues to smoke and the has wheezing on exam has minimal cough without any sputum production chest x-ray did not show any pneumonic process. Doing an EKG is not beneficial because of which I'm not obtaining an EKG a as no matter what the risk is family is agreeable to undergo surgery for intertrochanteric fracture. This and benefits were explained to the family and patient. Patient has elevated creatinine of 1.5. Because of that reason I'm not using any Toradol will use Tylenol for pain and Tylenol for pain. Try to avoid opiates as well as his barbiturates. Review of Systems REVIEW OF SYSTEMS: CONSTITUTIONAL: No fever, no malaise, no fatigue. HEENT: No recent visual problems or hearing problems. Denied any sore throat. CARDIOVASCULAR: No chest pain, orthopnea, PND, no palpitations, no syncope. PULMONARY: No shortness of breath, no cough, no hemoptysis. GASTROINTESTINAL: No diarrhea, no nausea, no vomiting, no abdominal pain. NEUROLOGICAL: No headaches, no weakness, no numbness. HEMATOLOGICAL: Denies any bleeding or petechiae. GENITOURINARY: Denies any burning micturition, frequency, or urgency. MUSCULOSKELETAL/RHEUMATOLOGICAL: as mentioned in HPI ENDOCRINE: Denies any polyuria or polydipsia. The rest of the 14-point review of systems is negative. Past Medical History Past Medical History: Cancer, Diabetes Mellitus, Hyperlipidemia, Hypertension, Myocardial Infarction ([place]), Pneumonia, Renal Disease, Thyroid Disorder Additional Past Medical History / Comment(s): breast CA, benign tumors, femur fx (2011) Last Myocardial Infarction Date:: 2011 History of Any Multi-Drug Resistant Organisms: None Reported Past Surgical History: Breast Surgery, Heart Catheterization With Stent Additional Past Surgical History / Comment(s): stents 2011 Past Anesthesia/Blood Transfusion Reactions: No Reported Reaction Date of Last Stent Placement:: 2011 Past Psychological History: No Psychological Hx Reported Smoking Status: Former smoker Past Alcohol Use History: None Reported Additional Past Alcohol Use History / Comment(s): smokes 2-3 ciagrettes a day, quit for 4 years Past Drug Use History: None Reported - Past Family History Mother Family Medical History: Diabetes Mellitus Additional Family Medical History / Comment(s): varicose veins, at 57 Sister(s) Family Medical History: Diabetes Mellitus Brother(s) Family Medical History: Myocardial Infarction ([place]) Father Additional Family Medical History / Comment(s): back problems Medications and Allergies Home Medications Medication Instructions Recorded Confirmed Type Atenolol [Tenormin] 25 mg PO DAILY@1300 10/15/16 12/09/18 History Bisacodyl 10 mg PO Q48H PRN 01/17/17 12/09/18 History Fluticasone Nasal [place] [Flonase 1 spray EA NOSTRIL DAILY@129901/17/17 12/09/18 History Nasal [place]] Escitalopram [Lexapro] 20 mg PO HS@209912/09/18 12/09/18 History Furosemide [Lasix] 20 mg PO BID@0600,1300 12/09/18 12/09/18 History HYDROcodone/APAP 5-325MG [[place] 1 tab PO Q6H PRN 12/09/18 12/09/18 History 5-325] HYDROcodone/APAP 5-325MG [[place] 1 tab PO TID@0600,1300,209912/09/18 12/09/18 History 5-325] Health Shake 1 can PO BID@1300,209912/09/18 12/09/18 History LORazepam [Ativan] 0.25 mg PO DAILY@1300 12/09/18 12/09/18 History LORazepam [Ativan] 0.5 mg PO HS 12/09/18 12/09/18 History MORPHINE ORAL ANEESH CONC 20mg/mL 5 mg PO Q4HR PRN 12/09/18 12/09/18 History [Roxanol Oral Soln Conc 20MG/ML] Magnesium Hydroxide [Milk of 2,400 mg PO DAILY PRN 12/09/18 12/09/18 History Magnesia] QUEtiapine [SEROquel] 25 mg PO DAILY@1300 12/09/18 12/09/18 History Sennosides-Docusate Sodium 2 tab PO HS@2100 12/09/18 12/09/18 History [Senokot-S] guaiFENesin [guaiFENesin Oral 200 mg PO Q4H PRN 12/09/18 12/09/18 History Solution] Allergies Allergy/AdvReac Type Severity Reaction Status Date / Time codeine Allergy Itching Verified 12/09/18 12:36 Physical Exam Vitals: Vital Signs Temp Pulse Resp BP Pulse Ox 12/09/18 11:00 98.2 F 90 15 147/74 92 L Intake and Output 12/08/18 12/09/18 12/09/18 22:59 06:59 14:59 Other: Voiding Method Indwelling Catheter Weight 60.5 kg PHYSICAL EXAMINATION: GENERAL: The patient is alert and oriented x3, not in any acute distress. thin built female HEENT: Pupils are round and equally reacting to light. EOMI. No scleral icterus. No conjunctival pallor. Normocephalic, atraumatic. No pharyngeal erythema. No th yromegaly. CARDIOVASCULAR: S1 and S2 present. No murmurs, rubs, or gallops. there may be a grade2/6 severe aortic systolic murmur Pulmonary: Minimal expiratory wheezing fairly good air entry into bilateral lung giles. ABDOMEN: Soft, nontender, nondistended, normoactive bowel sounds. No palpable organomegaly. MUSCULOSKELETAL: deferred to orthopedic surgery EXTREMITIES: No cyanosis, clubbing, or pedal edema. NEUROLOGICAL: Gross neurological examination did not reveal any focal deficits. SKIN: No rashes. Assessment and Plan Plan: -left the hip fracture and pelvic fracture: SURGERY will be consulted considering that the patient functionality and pain will be improved patient can be considered for surgery this and benefits of surgery were explained and patient is of moderate risk because of her smoking history mild wheezing and age. Same thing was explained to the patient and family members. They're agreeable for surgery if that is a plan from orthopedic perspective.pain management use tramadol Tylenol for pain if needed local Lidoderm patch avoid benzodiazepines opiates barbiturates, anticholinergic medications to her delirium and other side effects including constipation. -COPD with minimal exacerbation we will use inhaled steroids and inhalational treatments -Hypertension -type2 decubitus mellitus -coronary artery disease -Hypothyroidism patient is not on any medications for of these above-mentioned problems as patient is hospice. Patient will not be initiated on any medications. -Vascular dementia.moderate -Patient will need pharmacologic GI and DVT prophylaxis
[2018-12-09 13:26] VITALS: BMI 21.5
[2018-12-09] MEDS: IPRATROPIUM-ALBUTEROL 3 ML NEB INHALATION SCH ×2 (15:43→20:14)
[2018-12-09] MEDS: traMADol 50 MG TAB PO PRN ×2 (15:44→22:00)
--- NOTE | 2018-12-09 15:55 | P.CNOR ---
History of Present Illness - HPI Consult date: 12/09/18 Consult reason: fracture History of present illness: Patient is an 88-year-old female who was transferred from [facility] to [facility] this afternoon. Patient apparently had a fall at her assisted living home while going from the bathroom to the room. Patient landed directly on left side, she was unable to weight-bear. She was taken initially to [facility], images were done there. Images demonstrated a left hip fracture. Patient was admitted under internal medicine to [facility], hours PT was consulted with regards to the left hip fracture. Patient apparently has been on hospice for about 2 years. Patient's family is present with her at bedside today. They would like to proceed with surgery for pain relief and improved quality of life. Patient would also like to proceed with this. Patient is not on any oral anticoagulation at this time. Patient is unclear tolerated by internal medicine. Patient is most regain wheelchair, she does use both feet to move around the room. She occasionally will utilize a walker and ambulate short distances. She denies any previous orthopedic surgery on the left side. She has a history of a left tibial plateau fracture about 5 years ago. She denies any other acute orthopedic complaints. Review of Systems Constitutional: Reports as per HPI Past Medical History Past Medical History: Cancer, Diabetes Mellitus, Hyperlipidemia, Hypertension, Myocardial Infarction ([place]), Pneumonia, Renal Disease, Thyroid Disorder Additional Past Medical History / Comment(s): breast CA, benign tumors, femur fx (2011) Last Myocardial Infarction Date:: 2011 History of Any Multi-Drug Resistant Organisms: None Reported Past Surgical History: Breast Surgery, Heart Catheterization With Stent Additional Past Surgical History / Comment(s): stents 2011 Past Anesthesia/Blood Transfusion Reactions: No Reported Reaction Date of Last Stent Placement:: 2011 Past Psychological History: No Psychological Hx Reported Smoking Status: Former smoker Past Alcohol Use History: None Reported Additional Past Alcohol Use History / Comment(s): smokes 2-3 ciagrettes a day, quit for 4 years Past Drug Use History: None Reported - Past Family History Mother Family Medical History: Diabetes Mellitus Additional Family Medical History / Comment(s): varicose veins, at 57 Sister(s) Family Medical History: Diabetes Mellitus Brother(s) Family Medical History: Myocardial Infarction ([place]) Father Additional Family Medical History / Comment(s): back problems Medications and Allergies Home Medications Medication Instructions Recorded Confirmed Type Atenolol [Tenormin] 25 mg PO DAILY@1300 10/15/16 12/09/18 History Bisacodyl 10 mg PO Q48H PRN 01/17/17 12/09/18 History Fluticasone Nasal [place] [Flonase 1 spray EA NOSTRIL DAILY@129901/17/17 12/09/18 History Nasal [place]] Escitalopram [Lexapro] 20 mg PO HS@209912/09/18 12/09/18 History Furosemide [Lasix] 20 mg PO BID@0600,1300 12/09/18 12/09/18 History HYDROcodone/APAP 5-325MG [[place] 1 tab PO Q6H PRN 12/09/18 12/09/18 History 5-325] HYDROcodone/APAP 5-325MG [[place] 1 tab PO TID@0600,1300,209912/09/18 12/09/18 History 5-325] Health Shake 1 can PO BID@1300,209912/09/18 12/09/18 History LORazepam [Ativan] 0.25 mg PO DAILY@129912/09/18 12/09/18 History LORazepam [Ativan] 0.5 mg PO HS 12/09/18 12/09/18 History MORPHINE ORAL ANEESH CONC 20mg/mL 5 mg PO Q4HR PRN 12/09/18 12/09/18 History [Roxanol Oral Soln Conc 20MG/ML] Magnesium Hydroxide [Milk of 2,400 mg PO DAILY PRN 12/09/18 12/09/18 History Magnesia] QUEtiapine [SEROquel] 25 mg PO DAILY@129912/09/18 12/09/18 History Sennosides-Docusate Sodium 2 tab PO HS@209912/09/18 12/09/18 History [Senokot-S] guaiFENesin [guaiFENesin Oral 200 mg PO Q4H PRN 12/09/18 12/09/18 History Solution] Allergies Allergy/AdvReac Type Severity Reaction Status Date / Time codeine Allergy Itching Verified 12/09/18 12:36 Physical Examination Left lower extremity: No open lesions or sores visualized, no areas of erythema or soft tissue swelling Obvious shortening and external rotation of the leg compared to the contralateral side She is able to wiggle toes and no difficulty, sensation to light touch is intact throughout the extremity Is no tenderness with palpation surrounding the foot or ankle or knee She is unable to straight leg raise, logroll maneuver reproduces discomfort Dorsal pedis pulses 2+ Results - Diagnostic results Hip x-ray: report reviewed, image reviewed Assessment and Plan Plan: Imaging: Images were reviewed of the pelvis and left hip. Images demonstrated displaced left subcapital femur fracture. Images also demonstrated a left superior pubic rami fracture Assessment: 1. Displaced left subcapital femur fracture 2. Left superior pubic rami fracture 3. Status post fall from standing Plan: Dr. Mario was available today to examine the patient and discussed treatment options. We would like she was surgical intervention at this time, more specifically a left hip hemiarthroplasty Risk and benefits of the procedure were discussed with the patient and family, this to include blood loss, neurovascular injury, infection, developmental blood clots, pain and stiffness, need for subsequent surgery. There are good understanding would like to proceed. Nothing by mouth after midnight Pain control Nonweightbearing left lower extremity Medical recommendations Further recommendations to follow Time with Patient: Less than 30
[2018-12-09] MEDS: ESCITALOPRAM 20 MG TAB PO SCH (20:09)
[2018-12-09] MEDS: FAMOTIDINE 20 MG TAB PO SCH (20:09)
[2018-12-09] MEDS: SENNOSIDES-DOCUSATE SODIUM 1 EACH TAB PO SCH (20:09)
[2018-12-09 20:13] LABS: Glucose,Whole Blood 123 mg/dL (75-99)
[2018-12-09] MEDS: BUDESONIDE 0.5 MG/2 ML NEBU INHALATION SCH (20:14)
[2018-12-09 20:37] LABS: Glucose,Whole Blood 129 mg/dL (75-99)
[2018-12-09] MEDS: HEPARIN SODIUM,PORCINE 5,000 UNIT/ML 1 ML VIAL SQ SCH (22:25)
[2018-12-09] MEDS: SODIUM CHLORIDE 0.9% 1,000 ML IV SCH (22:25)
[2018-12-09] MEDS: INSULIN ASPART (NovoLOG) 100 UNIT/ML VIAL SQ SCH (22:25)
[2018-12-09] MEDS: ACETAMINOPHEN TAB 325 MG TAB PO PRN (22:40)
[2018-12-09] MEDS ORDERED: KETOROLAC 30 MG/ML 1 ML VIAL IVP PRN (23:31)
[2018-12-10] MEDS: traMADol 50 MG TAB PO PRN ×2 (03:31→12:34)
[2018-12-10] MEDS: SODIUM CHLORIDE 0.9% 1,000 ML IV SCH ×2 (03:42→18:15)
[2018-12-10 07:01] LABS: Glucose,Whole Blood 115 mg/dL (75-99)
[2018-12-10] MEDS: INSULIN ASPART (NovoLOG) 100 UNIT/ML VIAL SQ SCH ×4 (07:26→21:17)
[2018-12-10 08:06] LABS: Prothrombin Time 10.8 sec (9.0-12.0)
[2018-12-10 08:19] LABS: HCT 35.3 % (34.0-46.0); HGB 11.5 gm/dL (11.4-16.0); MCH 34.7 pg (25.0-35.0); MCHC 32.7 g/dL (31.0-37.0); MCV 106.2 fL (80.0-100.0); Macrocytosis Slight; Mean Platelet Volume 8.1; Platelet Count 127 k/uL (150-450); RBC 3.33 m/uL (3.80-5.40); RDW 12.1 % (11.5-15.5); WBC 6.8 k/uL (3.8-10.6)
[2018-12-10 08:20] LABS: Albumin 2.9 g/dL (3.5-5.0); Total Bilirubin 0.4 mg/dL (0.2-1.3); Total Protein 5.6 g/dL (6.3-8.2)
[2018-12-10] MEDS: IPRATROPIUM-ALBUTEROL 3 ML NEB INHALATION SCH ×4 (08:22→19:52)
[2018-12-10] MEDS: BUDESONIDE 0.5 MG/2 ML NEBU INHALATION SCH ×2 (08:24→19:52)
[2018-12-10] MEDS: FAMOTIDINE 20 MG TAB PO SCH ×2 (10:22→21:16)
[2018-12-10 11:29] LABS: Glucose,Whole Blood 110 mg/dL (75-99)
[2018-12-10] MEDS: HEPARIN SODIUM,PORCINE 5,000 UNIT/ML 1 ML VIAL SQ SCH ×2 (11:40→21:17)
--- NOTE | 2018-12-10 16:36 | P.PN ---
Subjective 88-year-old female was admitted for left hip fracture and fraction of suprapubic family. Patient is actually hospice with the for comfort purposes patient will undergo surgery for left hip fracture. Patient pain is better but the patient is bit confused probably because of tramadol patient does have some tremor. Again because of tramadol although we do not have too many options for pain management. Patient will be treated for delirium if she has any today and I see that patient's oxygen saturation 7 come down although patient doesn't have any crackles on exam patient probably started the to have pulmonary edema along obtain a chest x-ray. We'll give Lasix IV fluids will be discontinued. Constitutional: Denied any fatigue denied any fever. Cardio vascular: denied any chest pain, palpitations Gastrointestinal denied any nausea vomiting Pulmonary: Denied any shortness of breath cough Neurologic denied any new focal deficits All inpatient medications were reviewed and appropriate changes in these medications as dictated in the interval history and assessment and plan. Objective - Vital Signs Vital signs: Vital Signs Temp 98.4 F 12/10/18 15:00 Pulse 92 12/10/18 15:16 Resp 16 12/10/18 15:16 BP 107/67 12/10/18 15:00 Pulse Ox 91 L 12/10/18 15:07 Intake & Output 12/09/18 12/10/18 12/10/18 18:59 06:59 18:59 Intake Total 100 937.5 Output Total 550 375 300 Balance -450 562.5 -300 Weight 60.5 kg Intake: Intake, IV Titration 100 937.5 Amount Sodium Chloride 0.9% 1, 100 937.5 000 ml @ 75 mls/hr IV . [id number] [facility] Rx#:[id number] Output: Urine 550 375 300 Other: Voiding Method Indwelling Catheter Indwelling Catheter Indwelling Catheter - Exam PHYSICAL EXAMINATION: GENERAL: The patient is alert and oriented x3, not in any acute distress. thin built female HEENT: Pupils are round and equally reacting to light. EOMI. No scleral icterus. No conjunctival pallor. Normocephalic, atraumatic. No pharyngeal erythema. No thyromegaly. CARDIOVASCULAR: S1 and S2 present. No murmurs, rubs, or gallops. there may be a grade2/6 severe aortic systolic murmur Pulmonary: Minimal expiratory wheezing fairly good air entry into bilateral lung giles. ABDOMEN: Soft, nontender, nondistended, normoactive bowel sounds. No palpable organomegaly. MUSCULOSKELETAL: deferred to orthopedic surgery EXTREMITIES: No cyanosis, clubbing, or pedal edema. NEUROLOGICAL: Gross neurological examination did not reveal any focal deficits. SKIN: No rashes. - Labs CBC & Chem 7: 12/10/18 07:32 12/10/18 07:32 Labs: Abnormal Lab Results - Last 24 Hours (Table) 12/09/18 12/09/18 12/10/18 Range/Units 20:02 20:36 07:00 RBC (3.80-5.40) m/uL MCV (80.0-100.0) fL Plt Count (150-450) k/uL Chloride (98-107) mmol/L BUN (7-17) mg/dL Glucose (74-99) mg/dL POC Glucose (mg/dL) 123 H 129 H 115 H (75-99) mg/dL Calcium (8.4-10.2) mg/dL Total Protein (6.3-8.2) g/dL Albumin (3.5-5.0) g/dL 12/10/18 12/10/18 12/10/18 Range/Units 07:32 07:32 11:27 RBC 3.33 L (3.80-5.40) m/uL MCV 106.2 H (80.0-100.0) fL Plt Count 127 L (150-450) k/uL Chloride 112 H (98-107) mmol/L BUN 24 H (7-17) mg/dL Glucose 102 H (74-99) mg/dL POC Glucose (mg/dL) 110 H (75-99) mg/dL Calcium 8.0 L (8.4-10.2) mg/dL Total Protein 5.6 L (6.3-8.2) g/dL Albumin 2.9 L (3.5-5.0) g/dL Assessment and Plan Plan: -left the hip fracture and pelvic fracture: Management as mentioned above, patient will undergo surgical intervention for left hip fracture today. -COPD with minimal exacerbation we will use inhaled steroids and inhalational treatments -Hypertension -type2 decubitus mellitus -coronary artery disease -Hypothyroidism patient is not on any medications for of these above-mentioned problems as patient is hospice. Patient will not be initiated on any medications. -Vascular dementia.moderate -Patient will need pharmacologic GI and DVT prophylaxis
[2018-12-10] MEDS: FLUTICASONE 50MCG/SPRAY NASAL 16GM EA NOSTRIL SCH (16:42)
[2018-12-10] MEDS: QUEtiapine 25 MG TAB PO SCH ×2 (16:42→22:45)
[2018-12-10] MEDS ORDERED: IV FLUID CONTINUATION 725 ML IV ONE (16:49)
--- NOTE | 2018-12-10 17:06 | XR ---
EXAMINATION TYPE: XR chest 1V DATE OF EXAM: 12/10/2018 COMPARISON: 01/21/2017 HISTORY: Preop TECHNIQUE: Single frontal view of the chest is obtained. FINDINGS: There is coarse interstitial density in the lungs. Thoracic aorta is atheromatous. There i s no heart failure. There is no pleural effusion. Bony thorax is intact. IMPRESSION: Moderate pulmonary interstitial fibrosis. No change. No heart failure seen.
[2018-12-10 17:28] LABS: Glucose,Whole Blood 116 mg/dL (75-99)
--- NOTE | 2018-12-10 17:38 | P.PN ---
Progress Note - Text Spoke with patient's daughter Luzma BROWN at approximately 1655 concerning the lifting of the patient's status for the immediate perioperative period. She agreed with the understanding that that most interventions like endotracheal intubation and mechanical ventilation usually are only required for a short time perioperatively. She does understand that there are exceptions to this but that we don't anticipate encountering them.
[2018-12-10] MEDS ORDERED: PHENYLEPHRINE-0.9% NACL SYG 1 MG/10 ML SYRINGE ONE (18:00)
[2018-12-10] MEDS ORDERED: PROPOFOL 10 MG/ML 20 ML VIAL IV ONE (18:00)
[2018-12-10] MEDS ORDERED: KETAMINE 10 MG/ML 20 ML VIAL ONE (18:00)
[2018-12-10] MEDS ORDERED: MIDAZOLAM 2 MG/2 ML VIAL ONE (18:00)
[2018-12-10] MEDS ORDERED: OFIRMEV PER PHARMACY MISCELLANE PRN (19:25)
[2018-12-10] MEDS ORDERED: ACETAMINOPHEN IV (For NPO) 1,000 MG in EMPTY BAG 1 BAG IVPB PRN (19:33)
--- NOTE | 2018-12-10 19:41 | P.OP ---
Date of Procedure: 12/10/18 Preoperative Diagnosis: Displaced left subcapital femoral neck fracture Postoperative Diagnosis: Same Procedure(s) Performed: Left hip hemiarthroplastypress-fit Implants: Depuy Corail size 11 collared standard press-fit femoral stem, 47 mm unipolar cobalt chrome femoral head, -3 neck. Anesthesia: spinal Surgeon: Alonso Mario Program Paraprofessional #1: Florenico Mcnair Estimated Blood Loss (ml): 100 Pathology: other (Femoral head) Condition: stable Disposition: PACU Indications for Procedure: The patient's an 88-year-old female who presents after falling injuring her left hip. Upon evaluation she is noted of evidence of a displaced left subcapital femoral neck fracture. He discussion the risks and benefits of operative intervention was made with the patient and her family. He opted to proceed. Specific risks of this procedure to include infection, neurovascular injury, development of blood clots, possible fracture, possible leg length discrepancy, possible instability and need for subsequent procedures was discussed. Informed consent was obtained. Operative Findings: As below Description of Procedure: The patient was brought to the operating room, and after induction of spinal anesthesia was placed in a lateral decubitus position. The bony prominences were appropriately padded. The pelvis was stable perpendicular to the floor with a pegboard. The left lower extremity was prepped and draped in normal fashion. A 12 cm incision was then made centered over the greater trochanter extending superiorly to level the ASIS and distally in line with the femoral sh aft. The skin and subcutaneous tissues were divided sharply. Electrocautery was used for hemostasis. The fascia nathaniel and gluteus beth fascia was split in line with the skin incision. The muscle fibers were bluntly dissected proximally. A self-retaining retractor was placed. The anterior and posterior margins of the gluteus medius muscles identified and the anterior two thirds was detached from the greater trochanter with electrocautery. The gluteus minimus tendon was identified and detached in a similar fashion. A T-shaped capsulotomy was performed. The femoral neck fracture was identified in the lower neck cut was made approximately 1 1/2 cm above the level of the lesser trochanter with a sagittal saw at a 45 to the shaft. The head was then extracted with a corkscrew. The acetabulum was inspected and no significant cartilage damage was noted. Attention was then paid towards preparing the proximal femur. A box chisel was used to open the metaphyseal region. A canal finder was used to find the femoral canal. Sequential broaching was performed up to a size 11. This is placed in 15 of anteversion with the leg perpendicular floor judging off the trans-epicondylar axis. There was good rotational stability. A calcar mill was used to fashion the medial calcar. A trial standard neck along with a 47 mm -3 trial head was placed. The hip was gently reduced. It was taken through range of motion. I felt to be stable in flexion and extension with internal and external rotation. I felt there was adequate spiritism of soft tissue tension. The hip was gently dislocated. The trial components removed. Pulsatile lavage was utilized. The final size 11 standard collared femoral stem was inserted again with the leg perpendicular to the floor in 15 of antever emerald. Again there was good rotational stability. A 47 mm -3 cobalt chrome femoral head was gently impacted. The hip was gently reduced. Again it was taken through motion and felt to be stable in flexion and extension with internal and external rotation. Pulsatile lavage was again utilized. With the leg in abduction the gluteus minimus and medius tendons reattached to the greater trochanter with #2 Ethibond suture. There was minimal drainage therefore a deep drain was not placed. The fascia nathaniel and gluteus beth fascia was closed with #2 Ethibond suture. The subcutaneous tissues were reapproximated interrupted 2-0 Vicryl sutures. The skin was reapproximated with 3-0 subcuticular strata fix suture. Skin tape and adhesive was applied. A sterile dressing was applied. The patient was awoken from sedation and transferred to recovery room in good condition. Blood loss was estimated 100 mL. No complications were incurred. Sponge and needle counts were correct in the case. Nick MARISCAL assisted during the major composes case to include exposure, implantation, and closure.
[2018-12-10 19:58] LABS: Glucose,Whole Blood 104 mg/dL (75-99)
--- NOTE | 2018-12-10 20:33 | XR ---
EXAMINATION TYPE: XR Hip Limited LT DATE OF EXAM: 12/10/2018 COMPARISON: NONE HISTORY: Hip surgery TECHNIQUE: Single view FINDINGS: There is a left hip prosthesis. Components are in anatomic position. IMPRESSION: No complicating process seen.
[2018-12-10] MEDS: ESCITALOPRAM 20 MG TAB PO SCH (21:16)
[2018-12-10] MEDS: SENNOSIDES-DOCUSATE SODIUM 1 EACH TAB PO SCH (21:16)
[2018-12-10] MEDS: ACETAMINOPHEN TAB 325 MG TAB PO PRN (21:37)
[2018-12-11 07:06] LABS: Glucose,Whole Blood 144 mg/dL (75-99)
[2018-12-11] MEDS: INSULIN ASPART (NovoLOG) 100 UNIT/ML VIAL SQ SCH ×4 (08:32→20:25)
[2018-12-11] MEDS: HEPARIN SODIUM,PORCINE 5,000 UNIT/ML 1 ML VIAL SQ SCH ×2 (08:32→21:49)
[2018-12-11] MEDS: FAMOTIDINE 20 MG TAB PO SCH (08:35)
[2018-12-11 09:12] LABS: Basophils % (A) 0 %; Eosinophils % (A) 1 %; HCT 35.1 % (34.0-46.0); HGB 11.4 gm/dL (11.4-16.0); Lymphocytes # (A) 0.5 k/uL (1.0-4.8); Lymphocytes % (A) 7 %; MCH 34.7 pg (25.0-35.0); MCHC 32.4 g/dL (31.0-37.0); MCV 107.3 fL (80.0-100.0); Macrocytosis Moderate; Mean Platelet Volume 8.1; Monocytes # (A) 0.3 k/uL (0-1.0); Monocytes % (A) 4 %; Neutrophils # (A) 5.3 k/uL (1.3-7.7); Neutrophils % (A) 87 %; Platelet Count 116 k/uL (150-450); RBC 3.27 m/uL (3.80-5.40); RDW 12.3 % (11.5-15.5); WBC 6.1 k/uL (3.8-10.6)
[2018-12-11] MEDS: IPRATROPIUM-ALBUTEROL 3 ML NEB INHALATION SCH ×4 (09:20→20:41)
[2018-12-11] MEDS: BUDESONIDE 0.5 MG/2 ML NEBU INHALATION SCH ×2 (09:20→20:41)
--- NOTE | 2018-12-11 11:17 | P.PN ---
Subjective Progress Note Date: 12/11/18 Principal diagnosis: Status post left hip hemiarthroplasty Patient is evaluated at bedside, she is resting comfortably. Patient remains confused. Confusion seems to have worsened slightly since surgery. Nursing no she is very agitated last night. Catheter remains in place. Objective - Vital Signs Vital signs: Vital Signs Temp 99.0 F 12/11/18 07:00 Pulse 102 H 12/11/18 07:00 Resp 20 12/11/18 07:00 BP 158/84 12/11/18 07:00 Pulse Ox 91 L 12/11/18 07:00 Intake & Output 12/10/18 12/11/18 12/11/18 18:59 06:59 18:59 Intake Total 325 375 Output Total 300 640 Balance 25 -265 Intake: IV 325 200 Intake, IV Titration 75 Amount Sodium Chloride 0.9% 1, 75 000 ml @ 75 mls/hr IV . [id number] [facility] Rx#:[id number] Oral 100 Output: Urine 300 540 Estimated Blood Loss 100 Other: Voiding Method Indwelling Catheter Indwelling Catheter Indwelling Catheter - Exam Left lower extremity: Incision is clean, dry, and intact. The exofin fusion tape is in good condition. There is minimal soft tissue swelling and ecchymosis surrounding the medial and lateral aspects of the incision. Calf is soft, no tenderness with palpation. Plantar flexion, dorsiflexion, EHL, FHL are intact. Sensory exam to light touch throughout the extremity is intact, dorsal pedis pulses 2+. - Labs CBC & Chem 7: 12/11/18 07:53 12/10/18 07:32 Labs: Abnormal Lab Results - Last 24 Hours (Table) 12/10/18 12/10/18 12/10/18 Range/Units 11:27 17:25 19:55 RBC (3.80-5.40) m/uL MCV (80.0-100.0) fL Plt Count (150-450) k/uL Lymphocytes # (1.0-4.8) k/uL POC Glucose (mg/dL) 110 H 116 H 104 H (75-99) mg/dL 12/11/18 12/11/18 Range/Units 07:04 07:53 RBC 3.27 L (3.80-5.40) m/uL MCV 107.3 H (80.0-100.0) fL Plt Count 116 L (150-450) k/uL Lymphocytes # 0.5 L (1.0-4.8) k/uL POC Glucose (mg/dL) 144 H (75-99) mg/dL Assessment and Plan Plan: Assessment: 1. Post op day #1 s/p left hip hemiarthroplasty Plan: Pain control, avoid high-dose narcotics GI and DVT prophylaxis, continue current medication Daily dressing changes Weight-bear as tolerated with walker Medical recommendations Discharge planning: Plan for discharge back to [facility] tomorrow Time with Patient: Less than 30
[2018-12-11 11:21] LABS: Glucose,Whole Blood 138 mg/dL (75-99)
[2018-12-11] MEDS: QUEtiapine 25 MG TAB PO SCH (12:38)
[2018-12-11] MEDS: FLUTICASONE 50MCG/SPRAY NASAL 16GM EA NOSTRIL SCH (12:39)
--- NOTE | 2018-12-11 14:48 | P.PN ---
Subjective 88-year-old female was admitted for left hip fracture and fraction of suprapubic family. Patient is actually hospice with the for comfort purposes patient will undergo surgery for left hip fracture. Patient pain is better but the patient is bit confused probably because of tramadol patient does have some tremor. Again because of tramadol although we do not have too many options for pain management. Patient will be treated for delirium if she has any today and I see that patient's oxygen saturation 7 come down although patient doesn't have any crackles on exam patient probably started the to have pulmonary edema along obtain a chest x-ray. We'll give Lasix IV fluids will be discontinued. 12/11/2018 Patient underwent a left hip hemiarthroplasty. Patient is still bit confused which is not an expected of. Pain is fairly well controlled. Unable to obtain review of systems because of her confusion All inpatient medications were reviewed and appropriate changes in these medications as dictated in the interval history and assessment and plan. Objective - Vital Signs Vital signs: Vital Signs Temp 98.2 F 12/11/18 14:09 Pulse 98 12/11/18 14:09 Resp 16 12/11/18 14:09 BP 135/76 12/11/18 14:09 Pulse Ox 98 12/11/18 14:09 Intake & Output 12/10/18 12/11/18 12/11/18 18:59 06:59 18:59 Intake Total 325 375 240 Output Total 300 640 700 Balance 25 265 -460 Intake: IV 325 200 Intake, IV Titration 75 Amount Sodium Chloride 0.9% 1, 75 000 ml @ 75 mls/hr IV . [id number] Rx#:[id number] Oral 100 240 Output: Urine 300 540 700 Estimated Blood Loss 100 Other: Voiding Method Indwelling Catheter Indwelling Catheter Indwelling Catheter - Exam PHYSICAL EXAMINATION: GENERAL: The patient is alert and oriented x3, not in any acute distress. thin built female HEENT: Pupils are round and equally reacting to light. EOMI. No scleral icterus. No conjunctival pallor. Normocephalic, atraumatic. No pharyngeal erythema. No thyromegaly. CARDIOVASCULAR: S1 and S2 present. No murmurs, rubs, or gallops. there may be a grade2/6 severe aortic systolic murmur Pulmonary: Minimal expiratory wheezing fairly good air entry into bilateral lung giles. ABDOMEN: Soft, nontender, nondistended, normoactive bowel sounds. No palpable organomegaly. MUSCULOSKELETAL: deferred to orthopedic surgery EXTREMITIES: No cyanosis, clubbing, or pedal edema. NEUROLOGICAL: Gross neurological examination did not reveal any focal deficits. SKIN: No rashes. - Labs CBC & Chem 7: 12/11/18 07:53 12/10/18 07:32 Labs: Abnormal Lab Results - Last 24 Hours (Table) 12/10/18 12/10/18 12/11/18 Range/Units 17:25 19:55 07:04 RBC (3.80-5.40) m/uL MCV (80.0-100.0) fL Plt Count (150-450) k/uL Lymphocytes # (1.0-4.8) k/uL POC Glucose (mg/dL) 116 H 104 H 144 H (75-99) mg/dL 12/11/18 12/11/18 Range/Units 07:53 11:20 RBC 3.27 L (3.80-5.40) m/uL MCV 107.3 H (80.0-100.0) fL Plt Count 116 L (150-450) k/uL Lymphocytes # 0.5 L (1.0-4.8) k/uL POC Glucose (mg/dL) 138 H (75-99) mg/dL Assessment and Plan Plan: -left the hip fracture and pelvic fracture: Management as mentioned above, patient is status post a left hip surgery -COPD with minimal exacerbation continue steroids and inhalational treatments -Hypertension -type2 decubitus mellitus -coronary artery disease -Hypothyroidism patient is not on any medications for of these above-mentioned problems as patient is hospice. Patient will not be initiated on any medications. -Vascular dementia.moderate -Patient will need pharmacologic GI and DVT prophylaxis
[2018-12-11 17:16] LABS: Glucose,Whole Blood 152 mg/dL (75-99)
[2018-12-11 20:20] LABS: Glucose,Whole Blood 122 mg/dL (75-99)
[2018-12-11] MEDS: SENNOSIDES-DOCUSATE SODIUM 1 EACH TAB PO SCH (21:48)
[2018-12-11] MEDS: ESCITALOPRAM 20 MG TAB PO SCH (21:48)
[2018-12-12 07:16] LABS: Glucose,Whole Blood 110 mg/dL (75-99)
[2018-12-12 07:19] LABS: HCT 31.5 % (34.0-46.0); HGB 10.4 gm/dL (11.4-16.0); MCH 35.4 pg (25.0-35.0); MCHC 33.1 g/dL (31.0-37.0); MCV 107.1 fL (80.0-100.0); Macrocytosis Moderate; Mean Platelet Volume 7.8; Platelet Count 140 k/uL (150-450); RBC 2.94 m/uL (3.80-5.40); RDW 12.1 % (11.5-15.5); WBC 7.9 k/uL (3.8-10.6)
[2018-12-12] MEDS: INSULIN ASPART (NovoLOG) 100 UNIT/ML VIAL SQ SCH ×2 (07:21→12:16)
[2018-12-12] MEDS: HEPARIN SODIUM,PORCINE 5,000 UNIT/ML 1 ML VIAL SQ SCH (07:26)
[2018-12-12 07:29] VITALS: BP 136/72; RESP 18; TEMP 98.6
[2018-12-12 07:38] LABS: Calcium 8.3 mg/dL (8.4-10.2); Potassium 3.8 mmol/L (3.5-5.1)
[2018-12-12] MEDS: IPRATROPIUM-ALBUTEROL 3 ML NEB INHALATION SCH ×2 (08:30→12:02)
[2018-12-12] MEDS: BUDESONIDE 0.5 MG/2 ML NEBU INHALATION SCH (08:30)
[2018-12-12] MEDS ORDERED: FAMOTIDINE 20 MG TAB PO SCH (09:00)
[2018-12-12] MEDS: ACETAMINOPHEN TAB 325 MG TAB PO PRN (09:30)
--- NOTE | 2018-12-12 09:46 | P.PN ---
Subjective Progress Note Date: 12/12/18 Principal diagnosis: Status post left hip hemiarthroplasty Patient is evaluated at bedside, she is resting comfortably. Patient remains confused, less agitated today. Catheter remains in place. Objective - Vital Signs Vital signs: Vital Signs Temp 98.6 F 12/12/18 07:00 Pulse 90 12/12/18 08:47 Resp 18 12/12/18 07:00 BP 136/72 12/12/18 07:00 Pulse Ox 96 12/12/18 07:00 Intake & Output 12/11/18 12/12/18 12/12/18 18:59 06:59 18:59 Intake Total 240 296 Output Total 700 450 Balance -460 -450 296 Intake: Oral 240 296 Output: Urine 700 450 Other: Voiding Method Indwelling Catheter Indwelling Catheter Indwelling Catheter - Exam Left lower extremity: Incision is clean, dry, and intact. The exofin fusion tape is in good condition. There is minimal soft tissue swelling and ecchymosis surrounding the medial and lateral aspects of the incision. Calf is soft, no tenderness with palpation. Plantar flexion, dorsiflexion, EHL, FHL are intact. Sensory exam to light touch throughout the extremity is intact, dorsal pedis pulses 2+. - Labs CBC & Chem 7: 12/12/18 06:33 12/12/18 06:33 Labs: Abnormal Lab Results - Last 24 Hours (Table) 12/11/18 12/11/18 12/11/18 Range/Units 11:20 17:05 20:09 RBC (3.80-5.40) m/uL Hgb (11.4-16.0) gm/dL Hct (34.0-46.0) % MCV (80.0-100.0) fL MCH (25.0-35.0) pg Plt Count (150-450) k/uL Chloride (98-107) mmol/L BUN (7-17) mg/dL Glucose (74-99) mg/dL POC Glucose (mg/dL) 138 H 152 H 122 H (75-99) mg/dL Calcium (8.4-10.2) mg/dL 12/12/18 12/12/18 12/12/18 Range/Units 06:33 06:33 07:05 RBC 2.94 L (3.80-5.40) m/uL Hgb 10.4 L (11.4-16.0) gm/dL Hct 31.5 L (34.0-46.0) % MCV 107.1 H (80.0-100.0) fL MCH 35.4 H (25.0-35.0) pg Plt Count 140 L (150-450) k/uL Chloride 112 H (98-107) mmol/L BUN 22 H (7-17) mg/dL Glucose 108 H (74-99) mg/dL POC Glucose (mg/dL) 110 H (75-99) mg/dL Calcium 8.3 L (8.4-10.2) mg/dL Assessment and Plan Plan: Assessment: 1. Post op day #2 s/p left hip hemiarthroplasty Plan: Pain control, avoid high-dose narcotics GI and DVT prophylaxis Daily dressing changes Weight-bear as tolerated with walker Medical recommendations Remove catheter today Discharge planning: Stable for discharge back to rehab today Time with Patient: Less than 30
--- NOTE | 2018-12-12 10:55 | XR ---
EXAMINATION TYPE: XR chest 1V DATE OF EXAM: 12/12/2018 COMPARISON: 12/10/2018 HISTORY: Shortness of breath TECHNIQUE: Single frontal view of the chest is obtained. FINDINGS: There is diffuse hyperinflation. There is prominence of the right hilum. Surgical clips in the left axilla. Diffuse osteopenia. Biapical pleural thickening but no pneumothorax. No obvious con solidation. Correlate for previous coronary artery stenting. IMPRESSION: 1. Interval improvement of the interstitium suggestive of improving interstitial process such as pneu monitis or congestion. 2. There is a prominent right hilum which is stable dating back to 2017 likely represents enlarged pu lmonary artery correlate for pulmonary arterial hypertension.
--- NOTE | 2018-12-12 11:27 | P.DS ---
Providers Date of admission: 12/09/18 12:11 Attending physician: Raymond Bullard Consults: 12/09/18 13:09 Consult Physician Routine Consulting Provider: Sunny Eric Consult Reason/Comments: left hip fracture Do you want consulting provider notified?: Yes Primary care physician: Stated None Hospital Course: 88-year-old female was admitted for left hip fracture and fraction of suprapubic family. Patient is actually hospice with the for comfort purposes patient will undergo surgery for left hip fracture. Patient pain is better but the patient is bit confused probably because of tramadol patient does have some tremor. Again because of tramadol although we do not have too many options for pain management. Patient will be treated for delirium if she has any today and I see that patient's oxygen saturation 7 come down although patient doesn't have any crackles on exam patient probably started the to have pulmonary edema along obtain a chest x-ray. We'll give Lasix IV fluids will be discontinued. 12/11/2018 Patient underwent a left hip hemiarthroplasty. Patient is still bit confused which is not an expected of. Pain is fairly well controlled. 12/12/2018 Patient is doing well does have bowel sounds did not move her bowel yet. Patient's wheezing completely resolved. Repeat chest x-ray did not show any pulmonary edema. Patient will be discharged today to subacute rehabilitation. Patient pain is well-controlled with Tylenol which will be continued.patient is presently on 3 L of oxygen will discuss the oxygen and check her saturations.patient is not agitated anymore her mental status is at her baseline PHYSICAL EXAMINATION: GENERAL: The patient is alert and oriented x2, not in any acute distress. thin built female HEENT: Pupils are round and equally reacting to light. EOMI. No scleral icterus. No conjunctival pallor. Normocephalic, atraumatic. No pharyngeal erythema. No thyromegaly. CARDIOVASCULAR: S1 and S2 present. No murmurs, rubs, or gallops. there may be a grade2/6 severe aortic systolic murmur Pulmonary: Minimal expiratory wheezing fairly good air entry into bilateral lung giles. ABDOMEN: Soft, nontender, nondistended, normoactive bowel sounds. No palpable organomegaly. MUSCULOSKELETAL: deferred to orthopedic surgery EXTREMITIES: No cyanosis, clubbing, or pedal edema. NEUROLOGICAL: Gross neurological examination did not reveal any focal deficits. SKIN: No rashes. Assessment and Plan Plan: -left the hip fracture and pelvic fracture: Management as mentioned above, patient is status post a left hip surgery -COPD with minimal exacerbation continue steroids and inhalational treatments, improved -Hypertension -type2 decubitus mellitus -coronary artery disease -Hypothyroidism patient is not on any medications for of these above-mentioned problems as patient is hospice. Patient will not be initiated on any medications.resumption of hospice as per the physician at the snf. -Vascular dementia.moderate -Patient will need pharmacologic GI and DVT prophylaxis Plan - Discharge Summary Discharge Rx Participant: No New Discharge Prescriptions: New Ipratropium-Albuterol Nebulize [Duoneb 0.5 mg-3 mg/3 ml Soln] 3 ml INHALATION RT-QID PRN #0 ampul.neb PRN Reason: Shortness Of Breath Or Wheezing Budesonide [Pulmicort] 0.5 mg INHALATION RT-BID nebu Acetaminophen Tab [Tylenol] 650 mg PO Q4HR PRN tab PRN Reason: Fever And/ Or Pain Continue Bisacodyl 10 mg PO Q48H PRN PRN Reason: Constipation Fluticasone Nasal Benton [Flonase Nasal Benton] 1 spray EA NOSTRIL DAILY@1300 Magnesium Hydroxide [Milk of Magnesia] 2,400 mg PO DAILY PRN PRN Reason: Constipation guaiFENesin [guaiFENesin Oral Solution] 200 mg PO Q4H PRN PRN Reason: Cough Health Shake 1 can PO BID@1300,2100 Sennosides-Docusate Sodium [Senokot-S] 2 tab PO HS@2100 QUEtiapine [SEROquel] 25 mg PO DAILY@1300 Escitalopram [Lexapro] 20 mg PO HS@2100 Discontinued Atenolol [Tenormin] 25 mg PO DAILY@1300 MORPHINE ORAL ANEESH CONC 20mg/mL [Roxanol Oral Soln Conc 20MG/ML] 5 mg PO Q4HR PRN PRN Reason: Pain HYDROcodone/APAP 5-325MG [[place] 5-325] 1 tab PO Q6H PRN PRN Reason: Pain LORazepam [Ativan] 0.25 mg PO DAILY@1300 LORazepam [Ativan] 0.5 mg PO HS HYDROcodone/APAP 5-325MG [[place] 5-325] 1 tab PO TID@0600,1300,2100 Furosemide [Lasix] 20 mg PO BID@0600,1300 Discharge Medication List Bisacodyl 10 mg PO Q48H PRN 01/17/17 [History] Fluticasone Nasal Benton [Flonase Nasal Benton] 1 spray EA NOSTRIL DAILY@129901/17/17 [History] Escitalopram [Lexapro] 20 mg PO HS@209912/09/18 [History] Health Shake 1 can PO BID@1299,209912/09/18 [History] Magnesium Hydroxide [Milk of Magnesia] 2,400 mg PO DAILY PRN 12/09/18 [History] QUEtiapine [SEROquel] 25 mg PO DAILY@129912/09/18 [History] Sennosides-Docusate Sodium [Senokot-S] 2 tab PO HS@209912/09/18 [History] guaiFENesin [guaiFENesin Oral Solution] 200 mg PO Q4H PRN 12/09/18 [History] Acetaminophen Tab [Tylenol] 650 mg PO Q4HR PRN tab 12/12/18 [Rx] Budesonide [Pulmicort] 0.5 mg INHALATION RT-BID nebu 12/12/18 [Rx] Ipratropium-Albuterol Nebulize [Duoneb 0.5 mg-3 mg/3 ml Soln] 3 ml INHALATION RT-QID PRN #0 ampul.neb 12/12/18 [Rx] Follow up Appointment(s)/Referral(s): Florencio Mcnair PAC [PHYSICIAN [employer] ATTENDANT] - 2 Weeks Activity/Diet/Wound Care/Special Instructions: Orthopedic discharge instructions: 1. Daily dressing changes, do not remove clear tape directly over incision site 2. Weight-bear as tolerated with walker 3. Plan for [facility] at [facility] 2 [facility], with any questions Discharge Disposition: TRANSFER TO SNF/ECF
[2018-12-12 11:56] LABS: Glucose,Whole Blood 174 mg/dL (75-99)
[2018-12-12 12:15] VITALS: PULSE 92
[2018-12-12] MEDS: QUEtiapine 25 MG TAB PO SCH (12:16)
[2018-12-12] MEDS: FLUTICASONE 50MCG/SPRAY NASAL 16GM EA NOSTRIL SCH (12:16)
== END 2018-12-12 13:49 | DRG 956 ==
LOC: 4SSUR 12:11
PROVIDERS: ADMIT Internal Medicine; ATTEND Internal Medicine
PROC: 0SRS01A Replacement of Left Hip Joint, Femoral Surface with Metal Synthetic Substitute, Uncemented, Open Approach (ICD-10-PCS; principal; 2018-12-10 07:30)
DX: S72.012A Unspecified intracapsular fracture of left femur, initial encounter for closed fracture (principal); S32.592A Other specified fracture of left pubis, initial encounter for closed fracture; J81.1 Chronic pulmonary edema; E11.9 Type 2 diabetes mellitus without complications; I10 Essential (primary) hypertension; E78.5 Hyperlipidemia, unspecified; F01.50 Vascular dementia, unspecified severity, without behavioral disturbance, psychotic disturbance, mood disturbance, and anxiety; F17.200 Nicotine dependence, unspecified, uncomplicated; I25.2 Old myocardial infarction; J44.9 Chronic obstructive pulmonary disease, unspecified; W18.30XA Fall on same level, unspecified, initial encounter; I25.10 Atherosclerotic heart disease of native coronary artery without angina pectoris; Z79.899 Other long term (current) drug therapy; Z82.49 Family history of ischemic heart disease and other diseases of the circulatory system; Z83.3 Family history of diabetes mellitus; Z85.3 Personal history of malignant neoplasm of breast; Z87.81 Personal history of (healed) traumatic fracture; Z79.891 Long term (current) use of opiate analgesic; Z79.51 Long term (current) use of inhaled steroids; Z88.5 Allergy status to narcotic agent
CPT/HCPCS: 71045; 73501; 80048; 80053; 83036; 85025; 85027; 85610; 86850; 86900; 86901; 88305; 88311; 94640; 94760